=== PATIENT | male | born 1965 | race Caucasian/White ===

== ENCOUNTER 2019-07-15 09:06 | Day surgery (SDC) | payer OTHER ==
[~2019-07-15 09:06] MED LIST: Bupivacaine 0.5% 30 ML SDV ONE; Midazolam 1 MG/ML 2 ML SDV ONE; Propofol 200 MG/20 ML SDV ONE; fentaNYL 100 MCG/2 ML SDV ONE
[2019-07-15] MEDS: Nozin Nasal Sanitizer NASBOTH SCH ×2 (09:31→20:05)
[2019-07-15] MEDS ORDERED: Lactated Ringers 1,000 ML IV SCH (10:15)
[2019-07-15] MEDS ORDERED: ceFAZolin 2 GM in Sodium Chloride 0.9% 50 ML IV ONE (10:30)
[2019-07-15] MEDS ORDERED: Ondansetron 4 MG/2 ML SDV ONE (10:44)
[2019-07-15] MEDS ORDERED: Dexamethasone 4 MG/ML SDV ONE (10:44)
[2019-07-15] MEDS ORDERED: Rocuronium 50 MG/5 ML Vial ONE (10:44)
[2019-07-15] MEDS ORDERED: Succinylcholine 200 MG/10 ML MDV ONE (10:44)
[2019-07-15] MEDS ORDERED: Glycopyrrolate 0.2 MG/ML 5 ML MDV ONE (11:37)
[2019-07-15] MEDS ORDERED: Neostigmine Methylsulfate 1 MG/ML 5 ML Syringe ONE (11:37)
[2019-07-15] MEDS ORDERED: Lactated Ringers 1,000 ML ONE (12:26)
[2019-07-15] MEDS ORDERED: fentaNYL 100 MCG/2 ML SDV ONE (12:42)
[2019-07-15] MEDS ORDERED: Morphine 2 MG/ML Syringe IVPUSH PRN (12:43)
[2019-07-15] MEDS ORDERED: Acetaminophen/HYDROcodone 325-5 MG Tab PO PRN (12:43)
[2019-07-15] MEDS ORDERED: Ondansetron 4 MG/2 ML SDV IVPUSH PRN (12:43)
[2019-07-15] MEDS ORDERED: Albuterol 0.083% 2.5 MG/3 ML Neb Soln INH PRN (12:49)
[2019-07-15] MEDS ORDERED: INFLIXIMAB 100 MG IV SCH (13:00)
[2019-07-15] MEDS: Acetaminophen/oxyCODONE 325-5 MG Tab PO PRN ×2 (15:13→22:34)
[2019-07-15] MEDS: ALPRAZolam 0.25 MG Tab PO SCH ×2 (15:17→21:17)
[2019-07-15] MEDS: Sodium Chloride 0.9% 1,000 ML IV SCH ×2 (15:32→22:37)
[2019-07-15] MEDS: ceFAZolin 1 GM in Premix Bag 1 BAG IV SCH (17:41)
[2019-07-15] MEDS: Docusate Sodium 100 MG Cap PO SCH (20:06)
[2019-07-15] MEDS ORDERED: Simvastatin 20 MG Tab PO SCH (21:00)
[2019-07-16] MEDS: ceFAZolin 1 GM in Premix Bag 1 BAG IV SCH (01:02)
[2019-07-16] MEDS: Acetaminophen/oxyCODONE 325-5 MG Tab PO PRN ×2 (05:23→11:52)
[2019-07-16] MEDS ORDERED: Pantoprazole 40 MG Tab.CR PO SCH (07:30)
[2019-07-16] MEDS: Sodium Chloride 0.9% 1,000 ML IV SCH (07:55)
[2019-07-16] MEDS: Nozin Nasal Sanitizer NASBOTH SCH (08:44)
[2019-07-16] MEDS: ALPRAZolam 0.25 MG Tab PO SCH ×2 (08:44→13:33)
[2019-07-16] MEDS: Docusate Sodium 100 MG Cap PO SCH (08:45)
[2019-07-16] MEDS ORDERED: Fluticasone Propionate Nasal Spray 16 GM Bottle NASBOTH SCH (09:00)
[2019-07-16] MEDS ORDERED: Lisinopril 10 MG Tab PO SCH (09:00)
[2019-07-16] MEDS ORDERED: Loratadine 10 MG Tab PO SCH (09:00)
[2019-07-16] MEDS ORDERED: Aspirin 81 MG Tab.Chew PO SCH (09:00)
[2019-07-16] MEDS ORDERED: PARoxetine 20 MG Tab PO SCH (09:00)
[2019-07-16 11:40] VITALS: BP 115/73; PULSE 90
[2019-07-16] MEDS ORDERED: Warfarin 5 MG Tab PO SCH (13:00)
--- NOTE | 2019-07-17 11:37 | OR ---
DATE OF PROCEDURE: 07/15/2019 SURGEON: Wilver Lowery MD PREOPERATIVE DIAGNOSIS: Displaced left proximal humerus fracture, 2-part surgical neck. POSTOPERATIVE DIAGNOSIS: Displaced left proximal humerus fracture, 2-part surgical neck. PROCEDURE: Open reduction and internal fixation of left proximal humerus. ANESTHESIA: Interscalene block with general. INDICATIONS: Yaw is a 54-year-old [id number] gentleman, who sustained a fall resulting in fracture of his left shoulder. Initially seen at [facility] by AUGUSTINE Wilson, and referred for treatment. X-ray reveals a fracture transversely at the humeral neck with significant medial displacement of the shaft fragment. The patient now presents for open reduction and internal fixation. Risks, benefits, potential complications of the procedure were discussed with Yaw and his mother. DESCRIPTION OF PROCEDURE: After adequate anesthesia was obtained, the patient was placed in a modified beach-chair position. Left shoulder and arm were then prepped and draped in a sterile fashion. A longitudinal incision was made off the lateral edge of the acromion and carried distally through the skin and subcutaneous tissues. Hemostasis was obtained with electrocautery. Deltoid was split in line with its fibers down to the level of the axillary nerve. Axillary nerve was palpated and protected throughout the case. Blunt dissection carried out distal to the axillary nerve down to the humeral shaft. The fracture was somewhat impacted and initial attempts at reduction were unsuccessful. A bone hook was placed around the shaft medially, which improved reduction, however, complete reduction was not obtained. A Synthes proximal humeral plate was selected. This was positioned over the lateral aspect of the humerus. A single locking screw was placed in the proximal fragment of the humeral head and then a 3.5 cortical screw was utilized in the shaft fragment to aid in reduction compressing it against the plate. Position was confirmed using fluoroscopy. An additional shaft screw was then placed distal to this and again used in compressing the shaft fragment against the plate in aiding in reduction. FiberWire suture had been placed through the rotator cuff, which was completely intact and placed through the proximal suture holes in the plate and used for additional fixation. The suture was tied down and cut. Additional locking screw fixation was then obtained in the humeral head and position confirmed using fluoroscopy. Final cortical screws were placed in the distal hole on the plate. The longer screw which was originally used for reduction was removed and replaced with a locking screw. Final position was confirmed using image intensifier. Wound was then irrigated. Deltoid was then closed using 0 Vicryl in a running fashion. Skin was closed with 2-0 Vicryl and a running 3-0 Monocryl. Steri-Strips were applied. Sterile dressing was then placed. The patient tolerated the procedure well. There were no complications. He was taken from the operating room in stable condition. Wilver Lowery MD /[id number]
== END 2019-07-16 15:50 | disposition home health service (06) ==
LOC: JP.SDS 09:06 → JP.2SS 13:30 → JP.SDS 07-16 15:50
PROVIDERS: ATTEND Specialist
DX: S42.222A 2-part displaced fracture of surgical neck of left humerus, initial encounter for closed fracture (principal); I10 Essential (primary) hypertension; E78.5 Hyperlipidemia, unspecified; E66.9 Obesity, unspecified; K21.9 Gastro-esophageal reflux disease without esophagitis; F17.210 Nicotine dependence, cigarettes, uncomplicated; M19.90 Unspecified osteoarthritis, unspecified site; W19.XXXA Unspecified fall, initial encounter; Z79.82 Long term (current) use of aspirin; Z79.51 Long term (current) use of inhaled steroids; Z79.01 Long term (current) use of anticoagulants; Z79.899 Other long term (current) drug therapy; Z68.37 Body mass index [BMI] 37.0-37.9, adult
CPT/HCPCS: 76000; 97161-GP; A9270-GY; C1713; C1776; J0330; J0690; J1100; J2250; J2405; J2704; J2710; J3010; J3490; J7030; J7050; J7120; J7500

== ENCOUNTER 2019-07-28 16:05 | Emergency (ER) | payer OTHER ==
[2019-07-28 16:19] VITALS: BP 133/75; PULSE 94
--- NOTE | 2019-07-28 16:47 | EDM.PDOC ---
ED HPI GENERAL MEDICAL PROBLEM - General Chief Complaint: Upper Extremity Injury/Pain Stated Complaint: REINJURED LEFT ARM POST SURGERY Time Seen by Provider: 07/28/19 16:46 Source of Information: Reports: Patient History Limitations: Reports: No Limitations - History of Present Illness INITIAL COMMENTS - FREE TEXT/NARRATIVE: pt arrived stating that he fell out of bed this am . He had surgery on his humerus about 2 weeks ago. He is not having severe pain at this time. Onset: Today, Sudden Duration: Hour(s): Location: Reports: Upper Extremity, Left Associated Symptoms: Reports: Other (pt has pain in the left humerus but not markedly increased. ) Left Shoulder Pain Score (Numeric/FACES): 5 - Related Data Allergies Allergy/AdvReac Type Severity Reaction Status Date / Time No Known Allergies Allergy Verified 07/15/19 10:04 Home Meds: Home Meds Aspirin [Ashkan Chewable Aspirin] 81 mg PO DAILY 06/17/13 [History] Ca Carbonate/Vitamin D3/Vit K [Calcium + D Soft Chewable Tab] 1 each PO TID [History] InFLIXimab [Remicade] 100 mg IV Q30D 06/17/13 [History] Lisinopril 10 mg PO DAILY 06/17/13 [History] Multivitamin [Multi-Vitamin Daily] 1 tab PO DAILY 06/17/13 [History] Simvastatin 20 mg PO BEDTIME 06/17/13 [History] azaTHIOprine [Azathioprine] 5 tab PO DAILY 06/17/13 [History] ALPRAZolam [Xanax] 0.25 mg PO TID 07/09/19 [History] Albuterol Sulfate 2.5 mg IH Q6HR PRN 07/09/19 [History] Fluticasone Propionate [Flonase] 50 mcg NS DAILY 07/09/19 [History] Loratadine 10 mg PO DAILY 07/09/19 [History] Omeprazole 40 mg PO ACBREAKFAST 07/09/19 [History] PARoxetine [Paxil] 40 mg PO DAILY 07/09/19 [History] Warfarin [Coumadin] 5 mg PO DAILY 07/09/19 [History] oxyCODONE HCl/Acetaminophen [Percocet 5-325 mg Tablet] 1 each PO Q6HR PRN #28 tablet 07/16/19 [Rx] Past Medical History Gastrointestinal History: Reports: Other (See Below) Other Gastrointestinal History: chrones Musculoskeletal History: Reports: Fracture Other Musculoskeletal History: L prox humerus Fx Endocrine/Metabolic History: Reports: Obesity/BMI 30+ - Past Surgical History GI Surgical History: Reports: Other (See Below) Other GI Surgeries/Procedures: large bowel removed Musculoskeletal Surgical History: Reports: Arthroscopic Knee, Other (See Below) Other Musculoskeletal Surgeries/Procedures:: ORIF l shoulder Jun 2019 Social & Family History - Family History Family Medical History: Noncontributory - Tobacco Use Smoking Status *Q: Current Every Day Smoker Years of Tobacco use: 30 Packs/Tins Daily: 0.5 Used Tobacco, but Quit: No Second Hand Smoke Exposure: No - Caffeine Use Caffeine Use: Reports: Coffee, Soda, Tea - Recreational Drug Use Recreational Drug Use: No Review of Systems - Review of Systems Review Of Systems: See Below Constitutional: Reports: No Symptoms Eyes: Reports: No Symptoms Ears: Reports: No Symptoms Nose: Reports: No Symptoms Mouth/Throat: Reports: No Symptoms Respiratory: Reports: No Symptoms Cardiovascular: Reports: No Symptoms GI/Abdominal: Reports: No Symptoms Musculoskeletal: Reports: Other (pt fell out of bed and landed on the left arm. He had surgery on the humerus 2 weeks ago. ) ED EXAM, GENERAL - Physical Exam Exam: See Below Free Text/Narrative:: Pt arrived after falling out of bed and landing on the left shoulder. He had surgery on the humerus 2 weeks ago. Exam Limited By: No Limitations General Appearance: Alert, Mild Distress Ears: Normal TMs Nose: Normal Inspection Throat/Mouth: Normal Inspection Head: Atraumatic Neck: Normal Inspection Extremities: Other (left shoulder-- recent surgery tender with movement. He had surgery on the humerus 2 weeks ago. He fell and landed on the shoulder. ) Neurological: Alert, Oriented Course - Vital Signs Last Recorded V/S: Last Vital Signs Temp 35.9 C 07/28/19 16:29 Pulse 94 07/28/19 16:29 Resp 18 07/28/19 16:29 BP 133/75 07/28/19 16:29 Pulse Ox 97 07/28/19 16:29 - Re-Assessments/Exams Free Text/Narrative Re-Assessment/Exam: 07/28/19 17:24 xrays were obtained which showed excellent alignment. Departure - Departure Time of Disposition: 17:25 Disposition: Home, Self-Care 01 Condition: Fair Clinical Impression: Contusion of arm, left - Discharge Information Instructions: Contusion, [id number] Referrals: Justin Grullon MD [Primary Care Provider] - Forms: ED Department Discharge Care Plan Goals: cont with same care. keep appt for breonna with Dr wild.
--- NOTE | 2019-07-28 17:20 | CRLCR ---
Indication: Pain after fall Technique: Three views of the left shoulder were obtained. Comparison: July 09, 2019 Findings: A plate and screws transfix the proximal humeral fracture. The humerus is present within the glenoid. No definite new acute fracture is identified. Impression: Post operative change. Dictated by Alexandra Hidalgo MD @ Jul 28 2019 5:16PM Signed by Dr. Alexandra Hidalgo @ Jul 28 2019 5:20PM
--- NOTE | 2019-07-28 17:55 | CRLCR ---
INDICATION: Pain after fall into the arm. Recent shoulder surgery. COMPARISON: Shoulder exam from today and from 07/09/2019 FINDINGS: AP and lateral views of the left humerus were obtained using portable technique at 1701 hours for a total of two views. Again seen are changes of satisfactory ORIF of a comminuted, transverse, nondisplaced fracture of the surgical neck of the humerus and greater tuberosity. The lateral metallic plate and multiple anchoring screws are intact. There is no sign of additional fracture or dislocation. The visualized elbow is normal in appearance. The soft tissue planes are preserved. There is no opaque foreign body. IMPRESSION: Satisfactory appearance status post ORIF of a comminuted fracture of the surgical neck of the humerus and lateral malleolus. No sign of additional humeral fracture. Dictated by Kiel Ching MD @ Jul 28 2019 5:52PM Signed by Dr. Kiel Ching @ Jul 28 2019 5:55PM
== END 2019-07-28 17:33 | disposition home or self-care (01) ==
LOC: JP.ED 16:05
DX: S40.022A Contusion of left upper arm, initial encounter (principal); F17.210 Nicotine dependence, cigarettes, uncomplicated; E66.9 Obesity, unspecified; Z68.38 Body mass index [BMI] 38.0-38.9, adult; Z98.890 Other specified postprocedural states; Z96.612 Presence of left artificial shoulder joint; Z79.82 Long term (current) use of aspirin; Z79.02 Long term (current) use of antithrombotics/antiplatelets; W06.XXXA Fall from bed, initial encounter
CPT/HCPCS: 73030-LT; 73060-LT; 99283-25

== ENCOUNTER 2020-10-03 17:25 | Inpatient (IN) | payer MEDICARE, MEDICAID ==
[2020-10-03] MEDS ORDERED: Ketorolac 30 MG/ML SDV IM ONE (18:51)
--- NOTE | 2020-10-03 20:18 | CRLCT ---
INDICATION: Syncope TECHNIQUE: CT head without contrast. COMPARISON: None available FINDINGS: There is mild cortical volume loss. The ventricles are within normal limits for the patient`s age. There is no significant mass effect or midline shift. There is an ovoid, mildly lobulated fat attenuation structure along the superior aspect of the corpus callosum along the midline, with a lobulated ovoid component extending leftward along the superior aspect of the left lateral ventricle, which could represent a lipoma or a dermoid cyst. There is no loss of bruce-white differentiation. There is no evidence of an acute intracranial hemorrhage. No acute calvarial fracture is seen. The visualized paranasal sinuses and mastoid air cells are clear. The visualized orbits are within normal limits. IMPRESSION: No evidence of an acute intracranial hemorrhage, mass effect or loss of bruce-white differentiation. 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 Dictated by Rustam Chance MD @ 10/03/2020 8:15:57 PM Please note that all CT scans at this facility use dose modulation, iterative reconstruction, and/or weight-based dosing when appropriate to reduce radiation dose to as low as reasonably achievable. Dictated by: Rustam Chance MD @ 10/03/2020 20:17:13 (Electronically Signed)
--- NOTE | 2020-10-03 20:47 | CRLCR ---
INDICATION: Trauma. Patient fell. COMPARISON: none TECHNIQUE: Three-view right shoulder FINDINGS: There is a comminuted displaced fracture the right humeral head. The AC joint appears intact. The clavicle and upper right ribs appear intact. IMPRESSION: Comminuted displaced fracture noted within the right humeral head. Dictated by Neto Valdez MD @ 10/03/2020 8:45:39 PM Dictated by: Neto Valdez MD @ 10/03/2020 20:45:56 (Electronically Signed)
[2020-10-03] MEDS ORDERED: HYDROmorphone 0.5 MG/0.5 ML Syringe IVPUSH ONE (21:46)
--- NOTE | 2020-10-03 22:14 | EDM.PDOC ---
ED HPI GENERAL MEDICAL PROBLEM - General Chief Complaint: Upper Extremity Injury/Pain Stated Complaint: FELL RT SHOULDER PAIN VIA [place] Time Seen by Provider: 10/03/20 18:47 Source of Information: Reports: Patient, Family History Limitations: Reports: No Limitations - History of Present Illness INITIAL COMMENTS - FREE TEXT/NARRATIVE: Nadeem is a 55-year-old male presenting to the ED for evaluation of right shoulder pain after a fall on the ice today. Patient reports that he had 2 falls the first outside of a store where he "slipped on the sidewalk". On that fall he did not sustain any injuries. He then was coming out of [employer] and again "slipped on the ice" falling on his right shoulder. He was assisted back up by another individual but is experiencing significant pain in the proximal shoulder with decreased range of motion. Patient does have a history of a fracture to the left shoulder (proximal humerus) requiring pinning and stabilization. The patient denies any head injury or loss of consciousness. He blames the fall on wearing slippery soled shoes. He denies any neck or back pain. Not experienced any nausea or vomiting, change in vision or hearing, numbness or weakness in the arms or legs. He has not had any loss of bowel or bladder control, or saddle anesthesia. Right Shoulder Pain Score (Numeric/FACES): 5 - Related Data Allergies Allergy/AdvReac Type Severity Reaction Status Date / Time No Known Allergies Allergy Verified 10/03/20 18:02 Home Meds: Home Meds Aspirin [Ashkan Chewable Aspirin] 81 mg PO DAILY 06/17/13 [History] Calcium Carb/Vitamin D3/Vit K1 [Calcium + D Soft Chewable Tab] 1 each PO TID 06/17/13 [History] InFLIXimab [Remicade] 100 mg IV Q30D 06/17/13 [History] Lisinopril 10 mg PO DAILY 06/17/13 [History] Multivitamin [Multi-Vitamin Daily] 1 tab PO DAILY 06/17/13 [History] Simvastatin 20 mg PO BEDTIME 06/17/13 [History] azaTHIOprine [Azathioprine] 5 tab PO DAILY 06/17/13 [History] ALPRAZolam [Xanax] 0.25 mg PO TID 07/09/19 [History] Albuterol Sulfate 2.5 mg IH Q6HR PRN 07/09/19 [History] Fluticasone Propionate [Flonase] 50 mcg NS DAILY 07/09/19 [History] Loratadine 10 mg PO DAILY 07/09/19 [History] Omeprazole 40 mg PO ACBREAKFAST 07/09/19 [History] PARoxetine [Paxil] 40 mg PO DAILY 07/09/19 [History] Warfarin [Coumadin] 5 mg PO DAILY 07/09/19 [History] Acetaminophen [Tylenol] 1 - 2 tab PO Q4HR 09/17/19 [History] Past Medical History HEENT History: Reports: Impaired Vision Cardiovascular History: Reports: Blood Clots/VTE/DVT, High Cholesterol, Hypertension Respiratory History: Reports: None Gastrointestinal History: Reports: Other (See Below) Other Gastrointestinal History: chrones Genitourinary History: Reports: None Musculoskeletal History: Reports: Fracture Other Musculoskeletal History: L prox humerus Fx. s/p L proximal humeras fixation 07/15/19. Fell out of bed 07/21/19 landing on his L upper arm, states having more pain since then Neurological History: Reports: None Psychiatric History: Reports: None, Anxiety, Depression, Developmental Delay Endocrine/Metabolic History: Reports: Obesity/BMI 30+ Hematologic History: Reports: None Immunologic History: Reports: None Oncologic (Cancer) History: Reports: None Dermatologic History: Reports: None - Infectious Disease History Infectious Disease History: Reports: Chicken Pox - Past Surgical History Head Surgeries/Procedures: Reports: None GI Surgical History: Reports: Colon, Other (See Below) Other GI Surgeries/Procedures: large bowel removed Musculoskeletal Surgical History: Reports: Arthroscopic Knee, Other (See Below) Other Musculoskeletal Surgeries/Procedures:: ORIF l shoulder Jun 2019 Social & Family History - Family History Family Medical History: No Pertinent Family History - Tobacco Use Tobacco Use Status *Q: Current Every Day Tobacco User Years of Tobacco use: 32 Packs/Tins Daily: 1 - Caffeine Use Caffeine Use: Reports: Coffee, Soda - Recreational Drug Use Recreational Drug Use: No Review of Systems - Review of Systems Review Of Systems: See Below Constitutional: Reports: No Symptoms Eyes: Reports: No Symptoms Ears: Reports: No Symptoms Nose: Reports: No Symptoms Mouth/Throat: Reports: No Symptoms Respiratory: Reports: No Symptoms Cardiovascular: Reports: No Symptoms GI/Abdominal: Reports: No Symptoms Genitourinary: Reports: No Symptoms Musculoskeletal: Reports: Shoulder Pain (Right shoulder pain with decreased range of motion.) Skin: Reports: No Symptoms Neurological: Reports: Other (Recurrent falls today.) Psychiatric: Reports: No Symptoms ED EXAM, GENERAL - Physical Exam Exam: See Below Exam Limited By: No Limitations General Appearance: Alert, Mild Distress Eye Exam: Bilateral Eye: EOMI, PERRL Throat/Mouth: Normal Inspection, Normal Lips, Normal Teeth, Normal Oropharynx, Normal Voice Head: Atraumatic, Normocephalic Neck: Normal Inspection, Supple, Non-Tender, Full Range of Motion Respiratory/Chest: No Respiratory Distress, Lungs Clear, Normal Breath Sounds, Chest Non-Tender Cardiovascular: Normal Peripheral Pulses, Regular Rate, Rhythm, No Edema, No Murmur Peripheral Pulses: 2+: Radial (L), Radial (R), Posterior Tibial (L), Posterior Tibial (R) GI/Abdominal: Normal Bowel Sounds, Soft, Non-Tender, No Distention Back Exam: Normal Inspection, Full Range of Motion Extremities: Normal Capillary Refill, Joint Swelling (Right shoulder tenderness and mild swelling. No ecchymosis.), Arm Pain, Limited Range of Motion (Unable to AB duct, flex, or extend the right shoulder. Increased pain with external rotation.) Neurological: Alert, Oriented, CN II-XII Intact, Normal Cognition, No Motor/Sensory Deficits Psychiatric: Normal Affect, Normal Mood Skin Exam: Warm, Dry, Intact, Ecchymosis (Ecchymosis noted on the inside of the left arm and forearm.) Lymphatic: No Adenopathy #1 Interpretation EKG Date: 10/03/20 Time: 19:39 Rhythm: NSR Rate (Beats/Min): 81 [place]: Normal P-Wave: Present QRS: Normal ST-T: Normal QT: Normal Comparison: No Change Course - Vital Signs Last Recorded V/S: Last Vital Signs Temp 35.4 C L 10/03/20 21:00 Pulse 78 10/03/20 21:25 Resp 16 10/03/20 21:25 BP 122/80 10/03/20 21:25 Pulse Ox 95 10/03/20 21:25 - Orders/Labs/Meds Orders: Active Orders 24 hr Category Date Time Status EKG Documentation Completion [RC] ASDIRECTED Care 10/03/20 19:19 Active EKG 12 Lead [EK] Routine Ther 10/03/20 19:18 Ordered Labs: Laboratory Tests 10/03/20 10/03/20 10/03/20 Range/Units 19:18 19:18 19:18 WBC 11.1 H (4.5-11.0) K/uL RBC 4.65 (4.30-5.90) M/uL Hgb 15.6 H (12.0-15.0) g/dL Hct 48.1 (40.0-54.0) % MCV 103 H (80-98) fL MCH 34 H (27-31) pg MCHC 32 (32-36) % Plt Count 209 (150-400) K/uL Neut % (Auto) 89 H (36-66) % Lymph % (Auto) 5 L (24-44) % [place] % (Auto) 6 (2-6) % Eos % (Auto) 0 L (2-4) % Baso % (Auto) 0 (0-1) % Sodium 138 L (140-148) mmol/L Potassium 4.7 (3.6-5.2) mmol/L Chloride 102 (100-108) mmol/L Carbon Dioxide 24 (21-32) mmol/L Anion Gap 16.7 H (5.0-14.0) mmol/L BUN 23 H (7-18) mg/dL Creatinine 1.4 H (0.8-1.3) mg/dL Est Cr Clr Drug Dosing 72.33 mL/min Estimated GFR (MDRD) 52 L (>60) Glucose 142 H (74-106) mg/dL Calcium 8.5 (8.5-10.1) mg/dL Total Bilirubin 0.6 (0.2-1.0) mg/dL AST 22 (15-37) U/L ALT 35 (12-78) U/L Alkaline Phosphatase 67 (46-116) U/L Troponin I < 0.017 (0.000-0.056) ng/mL Total Protein 7.6 (6.4-8.2) g/dL Albumin 3.2 L (3.4-5.0) g/dL Globulin 4.4 H (2.3-3.5) g/dL Albumin/Globulin Ratio 0.7 L (1.2-2.2) Ethyl Alcohol < 3 mg/dL Meds: Medications Discontinued Medications Generic Name Dose Route Start Last Admin Trade Name Freq PRN Reason Stop Dose Admin Hydromorphone HCl 0.5 mg 10/03/20 21:46 10/03/20 22:07 Dilaudid IVPUSH 10/03/20 21:47 0.5 mg ONETIME ONE Administration Ketorolac Tromethamine 30 mg 10/03/20 18:51 10/03/20 19:48 Toradol IM 10/03/20 18:52 30 mg ONETIME ONE Administration - Re-Assessments/Exams Free Text/Narrative Re-Assessment/Exam: 10/03/20 19:15 we were called to x-ray as the patient had collapsed while standing for his shoulder x-ray. Patient apparently had a syncopal episode and was found on the floor lying supine. He denied any new pain but was unable to get off the floor without significant help. The patient reports that he started to feel a little dizzy before passing out. The x-ray tech witnessed the fall and try to assist the patient to the ground, however, he just waited too much for her to assist him. It took the assistance of 4 nurses to get him off the floor onto a cot. Because of this, we will get an EKG, additional labs, and a CT of the brain to rule out causes of syncope. In reviewing the patient's chart it appears that he had a syncopal episode while trimming his toenails back in 2013. 10/03/20 20:[address] of the brain results showing mild cortical volume loss with ventriculus in normal limits and no significant mass-effect or midline shift. There is no evidence for acute intracranial hemorrhage, mass-e ffect or loss of bruce-white differentiation. 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 Lowery will see the patient in the hospital. Because of the limited mobility of the patient and the uncertainty of why he is having syncopal episodes, I talked with Dr. Moctezuma about admitting the patient to the hospital for further care. Departure - Departure Time of Disposition: 22:22 Disposition: Admitted As Inpatient 66 Condition: Good Clinical Impression: Recurrent falls while walking, Syncope and collapse Closed fracture of proximal end of right humerus Qualifiers: Encounter type: initial encounter Fracture morphology: other fracture Fracture alignment: displaced Qualified Code(s): S42.291A - Other displaced fracture of upper end of right humerus, initial encounter for closed fracture - Discharge Information *PRESCRIPTION DRUG MONITORING PROGRAM REVIEWED*: Not Applicable *COPY OF PRESCRIPTION DRUG MONITORING REPORT IN PATIENT SAIRA: Not Applicable Referrals: Justin Grullon MD [Primary Care Provider] - Forms: ED Department Discharge Care Plan Goals: Plan is to omit the patient to the hospital for further evaluation and care with the anticipation that the patient will likely need orthopedic surgical intervention to stabilize the right shoulder. Sepsis Event Note (ED) - Evaluation Sepsis Screening Result: No Definite Risk - Focused Exam Vital Signs: Vital Signs Temp Pulse Resp BP Pulse Ox 10/03/20 21:25 78 16 122/80 95 10/03/20 21:00 35.4 C L 84 16 115/75 95 10/03/20 18:00 35.4 C L 79 16 102/71 97 10/03/20 17:28 35.4 C L 79 16 102/71 97 - My Orders Last 24 Hours: My Active Orders 10/03/20 19:18 EKG 12 Lead [EK] Routine 10/03/20 19:19 EKG Documentation Completion [RC] ASDIRECTED - Assessment/Plan Last 24 Hours: My Active Orders 10/03/20 19:18 EKG 12 Lead [EK] Routine 10/03/20 19:19 EKG Documentation Completion [RC] ASDIRECTED
--- NOTE | 2020-10-03 23:06 | PCM.HP.2 ---
H&P History of Present Illness - General Date of Service: 10/03/20 Admit Problem/Dx: Admission Diagnosis/Problem Admission Diagnosis/Problem Fracture of humerus, proximal, right, closed Source of Information: Patient, Family, Provider History Limitations: Reports: No Limitations - History of Present Illness Initial Comments - Free Text/Narative: CC: It hurts like hell HPI: Yaw presents to the emergency room today with right shoulder pain. He reports 2 different times today that he has fallen down. He thinks the first time he slipped on the ice and fell down. The second time he collapsed coming out of [facility]. He fell down and landed on his right shoulder. He experienced immediate sharp and severe pain in the right shoulder after the fall. Pain is worse with any sort of movement. Pain medications provided here have improved his pain some. He does report that he felt dizzy prior to the second fall. He also had a syncopal episode after standing up in the x-ray department. He reported feeling dizzy and blacking out at that time as well. He had an episode of syncope about 6 years ago that sounded like it was a vasovagal episode. He has been feeling well recently with no fevers, cough or shortness of breath. No reports of abdominal pain or nausea. No change in bowel or bladder habits. He has been eating and drinking well. He has not had any sick contacts. Work-up in the emergency room initially revealed some hypotension which has improved. His blood pressure is now normal. Labs show mild dehydration. Head CT was unremarkable. X-ray of the right shoulder shows a comminuted proximal right humerus fracture. He will be admitted for surgical management. Right Shoulder Pain Score (Numeric/FACES): 5 - Related Data Allergies/Adverse Reactions: Allergies Allergy/AdvReac Type Severity Reaction Status Date / Time No Known Allergies Allergy Verified 10/03/20 18:02 Home Medications: Home Meds Aspirin [Ashkan Chewable Aspirin] 81 mg PO DAILY 06/17/13 [History] Calcium Carb/Vitamin D3/Vit K1 [Calcium + D Soft Chewable Tab] 1 each PO TID 06/17/13 [History] InFLIXimab [Remicade] 100 mg IV Q30D 06/17/13 [History] Lisinopril 10 mg PO DAILY 06/17/13 [History] Multivitamin [Multi-Vitamin Daily] 1 tab PO DAILY 06/17/13 [History] Simvastatin 20 mg PO BEDTIME 06/17/13 [History] azaTHIOprine [Azathioprine] 5 tab PO DAILY 06/17/13 [History] ALPRAZolam [Xanax] 0.25 mg PO TID 07/09/19 [History] Albuterol Sulfate 2.5 mg IH Q6HR PRN 07/09/19 [History] Fluticasone Propionate [Flonase] 50 mcg NS DAILY 07/09/19 [History] Loratadine 10 mg PO DAILY 07/09/19 [History] Omeprazole 40 mg PO ACBREAKFAST 07/09/19 [History] PARoxetine [Paxil] 40 mg PO DAILY 07/09/19 [History] Warfarin [Coumadin] 5 mg PO DAILY 07/09/19 [History] Acetaminophen [Tylenol] 1 - 2 tab PO Q4HR 09/17/19 [History] Past Medical History HEENT History: Reports: Impaired Vision Cardiovascular History: Reports: Blood Clots/VTE/DVT, High Cholesterol, Hypertension Respiratory History: Reports: None Gastrointestinal History: Reports: Other (See Below) Other Gastrointestinal History: chrones Genitourinary History: Reports: None Musculoskeletal History: Reports: Fracture Other Musculoskeletal History: L prox humerus Fx. s/p L proximal humeras fixa tion 07/15/19. Fell out of bed 07/21/19 landing on his L upper arm, states having more pain since then Neurological History: Reports: None Psychiatric History: Reports: None, Anxiety, Depression, Developmental Delay Endocrine/Metabolic History: Reports: Obesity/BMI 30+ Hematologic History: Reports: None Immunologic History: Reports: None Oncologic (Cancer) History: Reports: None Dermatologic History: Reports: None - Infectious Disease History Infectious Disease History: Reports: Chicken Pox - Past Surgical History Head Surgeries/Procedures: Reports: None GI Surgical History: Reports: Colon, Other (See Below) Other GI Surgeries/Procedures: large bowel removed Musculoskeletal Surgical History: Reports: Arthroscopic Knee, Other (See Below) Other Musculoskeletal Surgeries/Procedures:: ORIF l shoulder Jun 2019 Social & Family History - Family History Family Medical History: No Pertinent Family History - Tobacco Use Tobacco Use Status *Q: Current Every Day Tobacco User Years of Tobacco use: 32 Packs/Tins Daily: 1 - Caffeine Use Caffeine Use: Reports: Coffee, Soda - Alcohol Use Alcohol Use History: No - Recreational Drug Use Recreational Drug Use: No H&P Review of Systems - Review of Systems: Review Of Systems: See Below Free Text/Narrative: A complete 12 point review of systems was obtained. Pertinent positives and negatives are noted in the history of present illness. All other systems were reviewed and were negative except as noted. Exam - Exam Exam: See Below - Vital Signs Vital Signs: Last Vital Signs Temp 35.4 C L 10/03/20 21:00 Pulse 78 10/03/20 21:25 Resp 16 10/03/20 21:25 BP 122/80 10/03/20 21:25 Pulse Ox 95 10/03/20 21:25 Weight: 145.15 kg - Exam Quality Assessment: No: Supplemental Oxygen General: Alert, Oriented, Cooperative. No: Mild Distress HEENT: Conjunctiva Clear, Mucosa Moist & [place]. No: Scleral Icterus Neck: Trachea Midline. No: Lymphadenopathy Lungs: Clear to Auscultation, Normal Respiratory Effort Cardiovascular: Regular Rate, Regular Rhythm GI/Abdominal Exam: Normal Bowel Sounds, Soft, Non-Tender, No Distention Extremities: No Pedal Edema, Joint Swelling (right shoulder ), Other (right shoulder quite swollen and very tender to touch ). No: Increased Warmth Skin: Warm, Dry Neuro Extensive - Mental Status: Alert, Oriented x3, Nl Response to Commands Neuro Extensive - Motor, Sensory, Reflexes: No: Dysarthria, Abnormal Motor, Tremor Psychiatric: Alert, Normal Affect - Patient Data Lab Results Last 24 hrs: Laboratory Results - last 24 hr 10/03/20 10/03/20 10/03/20 Range/Units 19:18 19:18 19:18 WBC 11.1 H (4.5-11.0) K/uL RBC 4.65 (4.30-5.90) M/uL Hgb 15.6 H (12.0-15.0) g/dL Hct 48.1 (40.0-54.0) % MCV 103 H (80-98) fL MCH 34 H (27-31) pg MCHC 32 (32-36) % Plt Count 209 (150-400) K/uL Neut % (Auto) 89 H (36-66) % Lymph % (Auto) 5 L (24-44) % Dane % (Auto) 6 (2-6) % Eos % (Auto) 0 L (2-4) % Baso % (Auto) 0 (0-1) % PT (9.5-12.0) sec INR (0.80-1.20) Sodium 138 L (140-148) mmol/L Potassium 4.7 (3.6-5.2) mmol/L Chloride 102 (100-108) mmol/L Carbon Dioxide 24 (21-32) mmol/L Anion Gap 16.7 H (5.0-14.0) mmol/L BUN 23 H (7-18) mg/dL Creatinine 1.4 H (0.8-1.3) mg/dL Est Cr Clr Drug Dosing 72.33 mL/min Estimated GFR (MDRD) 52 L (>60) Glucose 142 H (74-106) mg/dL Calcium 8.5 (8.5-10.1) mg/dL Total Bilirubin 0.6 (0.2-1.0) mg/dL AST 22 (15-37) U/L ALT 35 (12-78) U/L Alkaline Phosphatase 67 (46-116) U/L Troponin I < 0.017 (0.000-0.056) ng/mL Total Protein 7.6 (6.4-8.2) g/dL Albumin 3.2 L (3.4-5.0) g/dL Globulin 4.4 H (2.3-3.5) g/dL Albumin/Globulin Ratio 0.7 L (1.2-2.2) Ethyl Alcohol < 3 mg/dL 10/03/20 Range/Units 22:27 WBC (4.5-11.0) K/uL RBC (4.30-5.90) M/uL Hgb (12.0-15.0) g/dL Hct (40.0-54.0) % MCV (80-98) fL MCH (27-31) pg MCHC (32-36) % Plt Count (150-400) K/uL Neut % (Auto) (36-66) % Lymph % (Auto) (24-44) % Dane % (Auto) (2-6) % Eos % (Auto) (2-4) % Baso % (Auto) (0-1) % PT 17.5 H (9.5-12.0) sec INR 1.62 H D (0.80-1.20) Sodium (140-148) mmol/L Potassium (3.6-5.2) mmol/L Chloride (100-108) mmol/L Carbon Dioxide (21-32) mmol/L Anion Gap (5.0-14.0) mmol/L BUN (7-18) mg/dL Creatinine (0.8-1.3) mg/dL Est Cr Clr Drug Dosing mL/min Estimated GFR (MDRD) (>60) Glucose (74-106) mg/dL Calcium (8.5-10.1) mg/dL Total Bilirubin (0.2-1.0) mg/dL AST (15-37) U/L ALT (12-78) U/L Alkaline Phosphatase (46-116) U/L Troponin I (0.000-0.056) ng/mL Total Protein (6.4-8.2) g/dL Albumin (3.4-5.0) g/dL Globulin (2.3-3.5) g/dL Albumin/Globulin Ratio (1.2-2.2) Ethyl Alcohol mg/dL Result Diagrams: 10/03/20 19:18 10/03/20 19:18 Imaging Impressions Last 24 hrs: All images below were personally reviewed Right shoulder x-ray-there is evidence for a comminuted fracture of the proximal right humerus Head CT-no acute intracranial findings and in particular no mass, hemorrhage or stroke. #1 Interpretation EKG Date: 10/03/20 Rhythm: NSR Rate (Beats/Min): 81 [place]: Normal P-Wave: Present QRS: Normal ST-T: Normal QT: Normal Comparison: No Change Sepsis Event Note - Evaluation Sepsis Screening Result: No Definite Risk - Focused Exam Vital Signs: Vital Signs Temp Pulse Resp BP Pulse Ox 10/03/20 21:25 78 16 122/80 95 10/03/20 21:00 35.4 C L 84 16 115/75 95 10/03/20 18:00 35.4 C L 79 16 102/71 97 10/03/20 17:28 35.4 C L 79 16 102/71 97 *Q Meaningful Use (ADM) - VTE *Q VTE Pharmacological Contraindications *Q: Patient Scheduled Surgery - Problem List (1) Closed fracture of proximal end of right humerus SNOMED Code(s): 19101830 ICD Code: S42.201A - UNSP FRACTURE OF UPPER END OF RIGHT HUMERUS, INIT Status: Acute Current Visit: Yes Qualifiers: Encounter type: initial encounter Fracture morphology: other fracture Fracture alignment: displaced Qualified Code(s): S42.291A - Other displaced fracture of upper end of right humerus, initial encounter for closed fracture (2) Syncope and collapse SNOMED Code(s): 913518477 ICD Code: R55 - SYNCOPE AND COLLAPSE Status: Acute Current Visit: Yes (3) Hx of deep venous thrombosis SNOMED Code(s): 654823720 ICD Code: Z86.718 - PERSONAL HISTORY OF OTHER VENOUS THROMBOSIS AND EMBOLISM Status: Chronic Current Visit: No (4) Crohn's disease SNOMED Code(s): 15203961 ICD Code: K50.90 - CROHN'S DISEASE, UNSPECIFIED, WITHOUT COMPLICATIONS Status: Chronic Current Visit: No Problem Details: Medications associated suppress the immune system. (5) HTN, Benign hypertension SNOMED Code(s): 78473143 ICD Code: I10 - ESSENTIAL (PRIMARY) HYPERTENSION Status: Chronic Current Visit: No Problem List Initiated/Reviewed/Updated: Yes Orders Last 24hrs: Active Orders 24 hr Category Date Time Status Patient Status Manage Transfer [TRANSFER] Routine ADT 10/03/20 22:59 Ordered EKG Documentation Completion [RC] ASDIRECTED Care 10/03/20 19:19 Active Resuscitation Status Routine Resus Stat 10/03/20 23:01 Ordered EKG 12 Lead [EK] Routine Ther 10/03/20 19:18 Ordered Assessment/Plan Comment:: ASSESSMENT AND PLAN - Comminuted proximal right humerus fracture-secondary to fall. There appears to be a developing hematoma in the area as well with significant swelling and some warmth. He is on warfarin. Surgical intervention will likely be indicated. Assuming his blood pressures remain stable after some hydration and his INR is reversed slightly I think he will be in optimal achievable medical condition for the surgery. He has a good functional status. -1 mg of IV vitamin K now -Pain control -Surgical consultation with Dr. Lowery in the morning -Nothing by mouth after midnight -physical therapy when indicated Syncope and collapse-patient was initially hypotensive in the emergency room but blood pressures have improved some. EKG unremarkable and troponin normal. He did have some preceding dizziness which would fit with hypotension. He is on an HILL inhibitor which could be contributing. He has had some dizzy spells and falls in the past couple of weeks which sound orthostatic as well. He appears to be mildly dehydrated based on laboratory studies. -Discontinue lisinopril -Cardiac monitoring -IV fluids overnight -Labs in the morning History of Crohn's disease-stable. -Continue azathioprine History of DVT-chronically anticoagulated but his INR is subtherapeutic today. -1 mg of IV vitamin K now -Repeat INR in the morning Maintenance issues - - DVT prophylaxis -mechanical - GI prophylaxis -PPI - Nutrition -n.p.o. after midnight - Chacko catheter -not indicated CODE STATUS -full code Admission justification -this patient will be admitted for inpatient services and is medically appropriate meeting medical necessity for inpatient admission as outlined in my documentation. I reasonably expect the patient will require inpatient services that span a period time over 2 midnights. I reasonably expect this patient to be discharged or transferred within 96 hours [facility]. Disposition - anticipate discharge home after the hospital stay Primary care physician -Dr. Mitchel Moctezuma M.D. - Mortality Measure Prognosis:: Good
[2020-10-03] MEDS ORDERED: Magnesium Hydroxide 400 MG/5 ML Susp 30 ML Cup PO PRN (23:40)
[2020-10-03] MEDS ORDERED: Ondansetron 4 MG/2 ML SDV IV PRN (23:40)
[2020-10-03] MEDS ORDERED: Phytonadione 1 MG in Sodium Chloride 0.9% 50 ML IV ONE (23:40)
[2020-10-03] MEDS ORDERED: Ondansetron 4 MG Tab.DIS PO PRN (23:40)
[2020-10-03] MEDS ORDERED: Albuterol 0.083% 2.5 MG/3 ML Neb Soln NEB PRN (23:40)
[2020-10-03] MEDS ORDERED: LORazepam 2 MG/ML SDV IVPUSH PRN (23:40)
[2020-10-03] MEDS ORDERED: HYDROmorphone 1 MG/ML Syringe IVPUSH PRN (23:40)
[2020-10-04] MEDS: Sodium Chloride 0.9% 1,000 ML IV SCH ×3 (00:21→17:26)
[2020-10-04] MEDS: oxyCODONE 5 MG Tab PO PRN ×5 (00:52→21:06)
[2020-10-04] MEDS: Nicotine 14 MG/24 Hr Patch TRDERM SCH ×2 (00:53→09:06)
[2020-10-04] MEDS: Pantoprazole 40 MG Tab.CR PO SCH ×2 (07:28→13:06)
[2020-10-04] MEDS: Fluticasone Propionate Nasal Spray 16 GM Bottle NASBOTH SCH ×2 (09:06→09:11)
[2020-10-04] MEDS: ALPRAZolam 0.25 MG Tab PO SCH ×3 (09:11→21:07)
[2020-10-04] MEDS: Aspirin 81 MG Tab.Chew PO SCH (12:54)
[2020-10-04] MEDS: Loratadine 10 MG Tab PO SCH (13:04)
[2020-10-04] MEDS: PARoxetine 20 MG Tab PO SCH (13:04)
--- NOTE | 2020-10-04 13:42 | CT ---
Shoulder wo Cont Rt CLINICAL HISTORY: Humeral fracture TECHNIQUE: Thin section axial tomographic images are obtained through the right shoulder without contrast enhancement. Images were reconstructed in the sagittal and coronal planes. Auto dosage reduction and iterative reconstruction techniques employed. FINDINGS: There is a comminuted fracture of the proximal humerus involving the head subcapital region. There are multiple displaced fragments posteriorly and anteriorly. There are some small bone shards in the upper portion of the glenohumeral joint and in the region of the supraspinatus tendon and subscapularis tendon. The scapula and clavicle appear intact. AC joint appears intact. IMPRESSION: Comminuted displaced fractures through the head subcapital region of the humerus
--- NOTE | 2020-10-04 14:18 | PCM.CONS ---
H&P History of Present Illness - General Date of Service: 10/04/20 Admit Problem/Dx: Admission Diagnosis/Problem Admission Diagnosis/Problem Fracture of humerus, proximal, right, closed Source of Information: Patient, Old Records, Provider History Limitations: Reports: No Limitations - History of Present Illness Initial Comments - Free Text/Narative: 55 year old male well known to me from left shoulder fracture admitted with syncope and right proximal humerus fracture from slip and fall. Reports slipping on ice and landing onto his right side. Evaluated in the ED and found to have a comminuted fracture of the humeral head. Onset of Symptoms: Reports: Sudden Location: Reports: Upper Extremity, Right Quality: Reports: Stabbing Severity: Severe Improves with: Reports: Immobilization Worsens with: Reports: Movement Right Shoulder Pain Score (Numeric/FACES): 5 - Related Data Allergies/Adverse Reactions: Allergies Allergy/AdvReac Type Severity Reaction Status Date / Time No Known Allergies Allergy Verified 10/03/20 18:02 Home Medications: Home Meds Aspirin [Ashkan Chewable Aspirin] 81 mg PO DAILY 06/17/13 [History] Calcium Carb/Vitamin D3/Vit K1 [Calcium + D Soft Chewable Tab] 1 each PO TID 06/17/13 [History] InFLIXimab [Remicade] 100 mg IV Q30D 06/17/13 [History] Lisinopril 10 mg PO DAILY 06/17/13 [History] Multivitamin [Multi-Vitamin Daily] 1 tab PO DAILY 06/17/13 [History] Simvastatin 20 mg PO BEDTIME 06/17/13 [History] azaTHIOprine [Azathioprine] 5 tab PO DAILY 06/17/13 [History] ALPRAZolam [Xanax] 0.25 mg PO TID 07/09/19 [History] Albuterol Sulfate 2.5 mg IH Q6HR PRN 07/09/19 [History] Fluticasone Propionate [Flonase] 50 mcg NS DAILY 07/09/19 [History] Loratadine 10 mg PO DAILY 07/09/19 [History] Omeprazole 40 mg PO ACBREAKFAST 07/09/19 [History] PARoxetine [Paxil] 40 mg PO DAILY 07/09/19 [History] Warfarin [Coumadin] 5 mg PO DAILY 07/09/19 [History] Acetaminophen [Tylenol] 1 - 2 tab PO Q4HR 09/17/19 [History] Past Medical History HEENT History: Reports: Impaired Vision Cardiovascular History: Reports: Blood Clots/VTE/DVT, High Cholesterol, Hypertension Respiratory History: Reports: None Gastrointestinal History: Reports: Other (See Below) Other Gastrointestinal History: chrones Genitourinary History: Reports: None Musculoskeletal History: Reports: Fracture Other Musculoskeletal History: L prox humerus Fx. s/p L proximal humeras fixation 07/15/19. Fell out of bed 07/21/19 landing on his L upper arm, states having more pain since then Neurological History: Reports: None Psychiatric History: Reports: None, Anxiety, Depression, Developmental Delay Endocrine/Metabolic History: Reports: Obesity/BMI 30+ Hematologic History: Reports: None Immunologic History: Reports: None Oncologic (Cancer) History: Reports: None Dermatologic History: Reports: None - Infectious Disease History Infectious Disease History: Reports: Chicken Pox - Past Surgical History Head Surgeries/Procedures: Reports: None GI Surgical History: Reports: Colon, Other (See Below) Other GI Surgeries/Procedures: large bowel removed Musculoskeletal Surgical History: Reports: Arthroscopic Knee, Other (See Below) Other Musculoskeletal Surgeries/Procedures:: ORIF l shoulder Jun 2019 Social & Family History - Family History Family Medical History: No Pertinent Family History - Tobacco Use Tobacco Use Status *Q: Current Every Day Tobacco User Years of Tobacco use: 32 Packs/Tins Daily: 1 - Caffeine Use Caffeine Use: Reports: Coffee, Soda - Recreational Drug Use Recreational Drug Use: No H&P Review of Systems - Review of Systems: Review Of Systems: See Below Musculoskeletal: Reports: Arm Pain Review of Systems Comment:: recent syncopal episodes Exam - Exam Exam: See Below - Vital Signs Vital Signs: Last Vital Signs Temp 36.6 C 10/04/20 12:05 Pulse 85 10/04/20 12:05 Resp 16 10/04/20 12:05 BP 124/75 10/04/20 12:05 Pulse Ox 94 L 10/04/20 12:05 Orthostatic Blood Pressure [ 97/72 Standing] Orthostatic Blood Pressure [ 110/69 Sitting] Orthostatic Blood Pressure [ 124/75 Supine] Weight: 142.972 kg - Exam General: Alert, Oriented Skin: Warm, Dry, Intact Neuro Extensive - Mental Status: Alert, Oriented x3, Normal Mood/Affect, Normal Cognition, Memory Intact Physical Exam Comments:: Right shoulder with swelling, pain with any motion and no active ROM of shoulder - Patient Data Lab Results Last 24 hrs: Laboratory Results - last 24 hr 10/03/20 10/03/20 10/03/20 Range/Units 19:18 19:18 19:18 WBC 11.1 H (4.5-11.0) K/uL RBC 4.65 (4.30-5.90) M/uL Hgb 15.6 H (12.0-15.0) g/dL Hct 48.1 (40.0-54.0) % MCV 103 H (80-98) fL MCH 34 H (27-31) pg MCHC 32 (32-36) % Plt Count 209 (150-400) K/uL Neut % (Auto) 89 H (36-66) % Lymph % (Auto) 5 L (24-44) % [place] % (Auto) 6 (2-6) % Eos % (Auto) 0 L (2-4) % Baso % (Auto) 0 (0-1) % PT (9.5-12.0) sec INR (0.80-1.20) Sodium 138 L (140-148) mmol/L Potassium 4.7 (3.6-5.2) mmol/L Chloride 102 (100-108) mmol/L Carbon Dioxide 24 (21-32) mmol/L Anion Gap 16.7 H (5.0-14.0) mmol/L BUN 23 H (7-18) mg/dL Creatinine 1.4 H (0.8-1.3) mg/dL Est Cr Clr Drug Dosing 72.33 mL/min Estimated GFR (MDRD) 52 L (>60) Glucose 142 H (74-106) mg/dL Calcium 8.5 (8.5-10.1) mg/dL Total Bilirubin 0.6 (0.2-1.0) mg/dL AST 22 (15-37) U/L ALT 35 (12-78) U/L Alkaline Phosphatase 67 (46-116) U/L Troponin I < 0.017 (0.000-0.056) ng/mL Total Protein 7.6 (6.4-8.2) g/dL Albumin 3.2 L (3.4-5.0) g/dL Globulin 4.4 H (2.3-3.5) g/dL Albumin/Globulin Ratio 0.7 L (1.2-2.2) Ethyl Alcohol < 3 mg/dL SARS-CoV-2 RNA (ESTEFANIA) (NEGATIVE) 10/03/20 10/04/20 10/04/20 Range/Units 22:27 04:15 04:15 WBC 8.8 (4.5-11.0) K/uL RBC 4.25 L (4.30-5.90) M/uL Hgb 14.5 (12.0-15.0) g/dL Hct 44.2 (40.0-54.0) % MCV 104 H (80-98) fL MCH 34 H (27-31) pg MCHC 33 (32-36) % Plt Count 187 (150-400) K/uL Neut % (Auto) (36-66) % Lymph % (Auto) (24-44) % [place] % (Auto) (2-6) % Eos % (Auto) (2-4) % Baso % (Auto) (0-1) % PT 17.5 H 14.9 H (9.5-12.0) sec INR 1.62 H D 1.38 H (0.80-1.20) Sodium (140-148) mmol/L Potassium (3.6-5.2) mmol/L Chloride (100-108) mmol/L Carbon Dioxide (21-32) mmol/L Anion Gap (5.0-14.0) mmol/L BUN (7-18) mg/dL Creatinine (0.8-1.3) mg/dL Est Cr Clr Drug Dosing mL/min Estimated GFR (MDRD) (>60) Glucose (74-106) mg/dL Calcium (8.5-10.1) mg/dL Total Bilirubin (0.2-1.0) mg/dL AST (15-37) U/L ALT (12-78) U/L Alkaline Phosphatase (46-116) U/L Troponin I (0.000-0.056) ng/mL Total Protein (6.4-8.2) g/dL Albumin (3.4-5.0) g/dL Globulin (2.3-3.5) g/dL Albumin/Globulin Ratio (1.2-2.2) Ethyl Alcohol mg/dL SARS-CoV-2 RNA (ESTEFANIA) (NEGATIVE) 10/04/20 10/04/20 Range/Units 04:15 04:20 WBC (4.5-11.0) K/uL RBC (4.30-5.90) M/uL Hgb (12.0-15.0) g/dL Hct (40.0-54.0) % MCV (80-98) fL MCH (27-31) pg MCHC (32-36) % Plt Count (150-400) K/uL Neut % (Auto) (36-66) % Lymph % (Auto) (24-44) % [place] % (Auto) (2-6) % Eos % (Auto) (2-4) % Baso % (Auto) (0-1) % PT (9.5-12.0) sec INR (0.80-1.20) Sodium 139 L (140-148) mmol/L Potassium 4.7 (3.6-5.2) mmol/L Chloride 104 (100-108) mmol/L Carbon Dioxide 26 (21-32) mmol/L Anion Gap 13.7 (5.0-14.0) mmol/L BUN 28 H (7-18) mg/dL Creatinine 1.4 H (0.8-1.3) mg/dL Est Cr Clr Drug Dosing 72.33 mL/min Estimated GFR (MDRD) 52 L (>60) Glucose 110 H (74-106) mg/dL Calcium 8.5 (8.5-10.1) mg/dL Total Bilirubin (0.2-1.0) mg/dL AST (15-37) U/L ALT (12-78) U/L Alkaline Phosphatase (46-116) U/L Troponin I (0.000-0.056) ng/mL Total Protein (6.4-8.2) g/dL Albumin (3.4-5.0) g/dL Globulin (2.3-3.5) g/dL Albumin/Globulin Ratio (1.2-2.2) Ethyl Alcohol mg/dL SARS-CoV-2 RNA (ESTEFANIA) Negative (NEGATIVE) Result Diagrams: 10/04/20 04:15 10/04/20 04:15 Sepsis Event Note - Evaluation Sepsis Screening Result: No Definite Risk - Focused Exam Vital Signs: Vital Signs Temp Pulse Resp BP Pulse Ox 01/05/21 12:05 36.6 C 85 16 124/75 94 L 10/04/20 07:13 35.8 C L 89 16 108/85 96 10/04/20 03:00 36.7 C 79 18 108/59 L 94 L *Q Meaningful Use (ADM) - VTE *Q VTE Pharmacological Contraindications *Q: Patient Scheduled Surgery Consult PN Assessment/Plan Procedures: Procedures ASSAY OF TROPONIN QUANT (09/04/14) ASSAY OF VANCOMYCIN (01/13/14) BLOOD CULTURE FOR BACTERIA (01/13/14) C-REACTIVE PROTEIN (01/13/14) COLONOSCOPY AND BIOPSY (06/19/13) COMPLETE CBC AUTOMATED (01/13/14) COMPLETE CBC W/AUTO DIFF WBC (09/04/14) CULTR BACTERIA EXCEPT BLOOD (01/13/14) CULTURE AEROBIC IDENTIFY (01/13/14) CULTURE OTHR SPECIMN AEROBIC (01/13/14) CULTURE SCREEN ONLY (06/19/13) EGD BIOPSY SINGLE/MULTIPLE (06/19/13) ELECTROCARDIOGRAM TRACING (09/04/14) EMERGENCY DEPT VISIT (07/28/19) EMERGENCY DEPT VISIT (09/04/14) EXTREMITY STUDY (04/16/17) EXTREMITY STUDY (02/07/16) EXTREMITY STUDY (12/10/14) FLUOROSCOPY <1 HR PHYS/QHP (07/15/19) IIV4 VACC NO PRSV 0.5 ML IM (09/17/19) IMMUNIZATION ADMIN (09/17/19) METABOLIC PANEL TOTAL CA (09/04/14) MICROBE SUSCEPTIBLE JENN (01/13/14) MRI JNT OF LWR EXTRE W/O DYE (08/01/15) NEG PRESS WOUND TX </=50 CM (01/13/14) OFFICE O/P EST LOW 20-29 MIN (04/19/20) OFFICE O/P NEW LOW 30-44 MIN (07/09/19) PROTHROMBIN TIME (01/08/20) PT EVAL LOW COMPLEX 20 MIN (07/15/19) ROUTINE VENIPUNCTURE (09/04/14) SMEAR GRAM STAIN (01/13/14) TISSUE EXAM BY PATHOLOGIST (06/19/13) TREAT HUMERUS FRACTURE (07/15/19) UPR/L XTREMITY ART 2 LEVELS (01/13/14) URINALYSIS AUTO W/SCOPE (09/04/14) US COMPL JOINT R-T W/IMG (01/13/14) X-RAY EXAM OF HUMERUS (07/28/19) X-RAY EXAM OF SHOULDER (02/25/20) X-RAY EXAM OF SHOULDER (08/18/19) X-RAY EXAM OF SHOULDER (07/28/19) (1) Closed fracture of proximal end of right humerus SNOMED Code(s): 04171664 Code(s): S42.201A - UNSP FRACTURE OF UPPER END OF RIGHT HUMERUS, INIT Current Visit: Yes Qualifiers: Encounter type: initial encounter Fracture morphology: other fracture Fracture alignment: displaced Qualified Code(s): S42.291A - Other displaced fracture of upper end of right humerus, initial encounter for closed fracture Assessment:: Displaced 4 part proximal humerus fracture (2) Syncope and collapse SNOMED Code(s): 459876478 Code(s): R55 - SYNCOPE AND COLLAPSE Current Visit: Yes Problem List Initiated/Reviewed/Updated: Yes My Orders Last 24 Hours: My Active Orders 10/04/20 Dinner NPO After Midnight [Nothing per Oral After Midnight Diet] [DIET] Regular Diet [DIET] Plan: Displaced 4 part proximal humerus fracture right arm. Recommend reconstruction with hemiarthroplasty. Implants have been ordered and should arrive in the morning, surgery can proceed in the afternoon. Ideally would like INR under 1.3, recheck in AM.
[2020-10-04] MEDS ORDERED: HYDROmorphone 0.5 MG/0.5 ML Syringe IVPUSH PRN (14:35)
--- NOTE | 2020-10-04 16:26 | PCM.PN ---
- General Info Date of Service: 10/04/20 Subjective Update: Mr. Gar is a 55-year-old gentleman who fell yesterday and experienced a right humerus fracture. He reports pain control is adequate when he is lying still. He has been seen and evaluated by Dr. Lowery, plan for surgical repair fracture in the next day or 2. Functional Status: Reports: Tolerating Diet, Urinating - Review of Systems General: Reports: No Symptoms HEENT: Reports: No Symptoms Pulmonary: Reports: No Symptoms Cardiovascular: Reports: No Symptoms Gastrointestinal: Reports: No Symptoms Musculoskeletal: Reports: Arm Pain (Right arm pain) - Patient Data Vitals - Most Recent: Last Vital Signs Temp 96.5 F L 10/04/20 15:23 Pulse 89 10/04/20 15:23 Resp 16 10/04/20 15:23 BP 120/73 10/04/20 15:23 Pulse Ox 93 L 10/04/20 15:23 Orthostatic Blood Pressure [ 97/72 Standing] Orthostatic Blood Pressure [ 110/69 Sitting] Orthostatic Blood Pressure [ 124/75 Supine] Weight - Most Recent: 315 lb 3.189 oz I&O - Last 24 Hours: Intake & Output 10/04/20 10/04/20 10/04/20 06:59 14:59 22:59 Intake Total 50 800 Output Total 1425 Balance 50 -625 Lab Results Last 24 Hours: Laboratory Results - last 24 hr 10/03/20 10/03/20 10/03/20 Range/Units 19:18 19:18 19:18 WBC 11.1 H (4.5-11.0) K/uL RBC 4.65 (4.30-5.90) M/uL Hgb 15.6 H (12.0-15.0) g/dL Hct 48.1 (40.0-54.0) % MCV 103 H (80-98) fL MCH 34 H (27-31) pg MCHC 32 (32-36) % Plt Count 209 (150-400) K/uL Neut % (Auto) 89 H (36-66) % Lymph % (Auto) 5 L (24-44) % [place] % (Auto) 6 (2-6) % Eos % (Auto) 0 L (2-4) % Baso % (Auto) 0 (0-1) % PT (9.5-12.0) sec INR (0.80-1.20) Sodium 138 L (140-148) mmol/L Potassium 4.7 (3.6-5.2) mmol/L Chloride 102 (100-108) mmol/L Carbon Dioxide 24 (21-32) mmol/L Anion Gap 16.7 H (5.0-14.0) mmol/L BUN 23 H (7-18) mg/dL Creatinine 1.4 H (0.8-1.3) mg/dL Est Cr Clr Drug Dosing 72.33 mL/min Estimated GFR (MDRD) 52 L (>60) Glucose 142 H (74-106) mg/dL Calcium 8.5 (8.5-10.1) mg/dL Total Bilirubin 0.6 (0.2-1.0) mg/dL AST 22 (15-37) U/L ALT 35 (12-78) U/L Alkaline Phosphatase 67 (46-116) U/L Troponin I < 0.017 (0.000-0.056) ng/mL Total Protein 7.6 (6.4-8.2) g/dL Albumin 3.2 L (3.4-5.0) g/dL Globulin 4.4 H (2.3-3.5) g/dL Albumin/Globulin Ratio 0.7 L (1.2-2.2) Ethyl Alcohol < 3 mg/dL SARS-CoV-2 RNA (ESTEFANIA) (NEGATIVE) 10/03/20 10/04/20 10/04/20 Range/Units 22:27 04:15 04:15 WBC 8.8 (4.5-11.0) K/uL RBC 4.25 L (4.30-5.90) M/uL Hgb 14.5 (12.0-15.0) g/dL Hct 44.2 (40.0-54.0) % MCV 104 H (80-98) fL MCH 34 H (27-31) pg MCHC 33 (32-36) % Plt Count 187 (150-400) K/uL Neut % (Auto) (36-66) % Lymph % (Auto) (24-44) % [place] % (Auto) (2-6) % Eos % (Auto) (2-4) % Baso % (Auto) (0-1) % PT 17.5 H 14.9 H (9.5-12.0) sec INR 1.62 H D 1.38 H (0.80-1.20) Sodium (140-148) mmol/L Potassium (3.6-5.2) mmol/L Chloride (100-108) mmol/L Carbon Dioxide (21-32) mmol/L Anion Gap (5.0-14.0) mmol/L BUN (7-18) mg/dL Creatinine (0.8-1.3) mg/dL Est Cr Clr Drug Dosing mL/min Estimated GFR (MDRD) (>60) Glucose (74-106) mg/dL Calcium (8.5-10.1) mg/dL Total Bilirubin (0.2-1.0) mg/dL AST (15-37) U/L ALT (12-78) U/L Alkaline Phosphatase (46-116) U/L Troponin I (0.000-0.056) ng/mL Total Protein (6.4-8.2) g/dL Albumin (3.4-5.0) g/dL Globulin (2.3-3.5) g/dL Albumin/Globulin Ratio (1.2-2.2) Ethyl Alcohol mg/dL SARS-CoV-2 RNA (ESTEFANIA) (NEGATIVE) 10/04/20 10/04/20 Range/Units 04:15 04:20 WBC (4.5-11.0) K/uL RBC (4.30-5.90) M/uL Hgb (12.0-15.0) g/dL Hct (40.0-54.0) % MCV (80-98) fL MCH (27-31) pg MCHC (32-36) % Plt Count (150-400) K/uL Neut % (Auto) (36-66) % Lymph % (Auto) (24-44) % [place] % (Auto) (2-6) % Eos % (Auto) (2-4) % Baso % (Auto) (0-1) % PT (9.5-12.0) sec INR (0.80-1.20) Sodium 139 L (140-148) mmol/L Potassium 4.7 (3.6-5.2) mmol/L Chloride 104 (100-108) mmol/L Carbon Dioxide 26 (21-32) mmol/L Anion Gap 13.7 (5.0-14.0) mmol/L BUN 28 H (7-18) mg/dL Creatinine 1.4 H (0.8-1.3) mg/dL Est Cr Clr Drug Dosing 72.33 mL/min Estimated GFR (MDRD) 52 L (>60) Glucose 110 H (74-106) mg/dL Calcium 8.5 (8.5-10.1) mg/dL Total Bilirubin (0.2-1.0) mg/dL AST (15-37) U/L ALT (12-78) U/L Alkaline Phosphatase (46-116) U/L Troponin I (0.000-0.056) ng/mL Total Protein (6.4-8.2) g/dL Albumin (3.4-5.0) g/dL Globulin (2.3-3.5) g/dL Albumin/Globulin Ratio (1.2-2.2) Ethyl Alcohol mg/dL SARS-CoV-2 RNA (ESTEFANIA) Negative (NEGATIVE) Med Orders - Current: Current Medications Acetaminophen (Tylenol) 650 mg PO Q4H PRN PRN Reason: Pain (Mild 1-3)/fever Albuterol (Proventil Neb Soln) 2.5 mg NEB Q4H PRN PRN Reason: Shortness Of Breath/wheezing Alprazolam (Xanax) 0.25 mg PO TID [facility] Last Admin: 10/04/20 13:04 Dose: 0.25 mg Documented by: Aspirin (Aspirin) 81 mg PO DAILY [facility] Last Admin: 10/04/20 12:54 Dose: Not Given Documented by: Azathioprine (Imuran) 250 mg PO DAILY [facility] Last Admin: 10/04/20 13:05 Dose: 250 mg Documented by: Fluticasone Propionate (Flonase) 0 gm NASBOTH DAILY [facility] Last Admin: 10/04/20 09:11 Dose: Not Given Documented by: Hydromorphone HCl (Dilaudid) 0.5 mg IVPUSH Q2H PRN PRN Reason: Pain (severe 7-10) Sodium Chloride (Normal Saline) 1,000 mls @ 75 mls/hr IV ASDIRECTED [facility] Loratadine (Claritin) 10 mg PO DAILY [facility] Last Admin: 10/04/20 13:04 Dose: 10 mg Documented by: Lorazepam (Ativan) 0.5 mg IVPUSH Q4H PRN PRN Reason: Nausea/Vomiting Magnesium Hydroxide (Milk Of Magnesia) 30 ml PO Q12H PRN PRN Reason: Constipation Melatonin (Melatonin) 9 mg PO BEDTIME [facility] Nicotine (Habitrol) 14 mg TRDERM DAILY [facility] Last Admin: 10/04/20 09:06 Dose: 14 mg Documented by: Ondansetron HCl (Zofran) 4 mg IV Q6H PRN PRN Reason: Nausea/Vomiting Ondansetron HCl (Zofran Odt) 4 mg PO Q6H PRN PRN Reason: Nausea able to take PO Oxycodone HCl (Oxycodone) 5 - 10 mg PO Q4H PRN PRN Reason: Pain Last Admin: 10/04/20 12:02 Dose: 10 mg Documented by: Pantoprazole Sodium (Protonix) 40 mg PO ACBREAKFAST [facility] Last Admin: 10/04/20 13:06 Dose: 40 mg Documented by: Paroxetine HCl (Paxil) 40 mg PO DAILY [facility] Last Admin: 10/04/20 13:04 Dose: 40 mg Documented by: Senna/Docusate Sodium (Senna Plus) 1 tab PO BID PRN PRN Reason: Constipation Simvastatin (Zocor) 20 mg PO BEDTIME [facility] Discontinued Medications Hydromorphone HCl (Dilaudid) 0.5 mg IVPUSH ONETIME ONE Stop: 10/03/20 21:47 Last Admin: 10/03/20 22:07 Dose: 0.5 mg Documented by: Hydromorphone HCl (Dilaudid) 0.5 mg IVPUSH Q2H PRN PRN Reason: Pain (severe 7-10) Last Admin: 10/04/20 14:35 Dose: 0.5 mg Documented by: Sodium Chloride (Normal Saline) 1,000 mls @ 125 mls/hr IV ASDIRECTED [facility] Last Admin: 10/04/20 09:04 Dose: 125 mls/hr Documented by: Phytonadione 1 mg/ Sodium (Chloride) 50.5 mls @ 100 mls/hr IV ONETIME ONE Stop: 10/04/20 00:10 Last Admin: 10/04/20 00:26 Dose: 100 mls/hr Documented by: Ketorolac Tromethamine (Toradol) 30 mg IM ONETIME ONE Stop: 10/03/20 18:52 Last Admin: 10/03/20 19:48 Dose: 30 mg Documented by: - Exam Quality Assessment: DVT Prophylaxis General: Alert, Oriented, Cooperative, Moderate Distress Lungs: Clear to Auscultation, Normal Respiratory Effort Cardiovascular: Regular Rate, Regular Rhythm, No Murmurs GI/Abdominal Exam: Soft, Non-Tender, No Organomegaly, No Distention Extremities: No Pedal Edema Sepsis Event Note - Evaluation Sepsis Screening Result: No Definite Risk - Focused Exam Vital Signs: Vital Signs Temp Temp Pulse Resp BP Pulse Ox 10/04/20 15:23 96.5 F L 89 16 120/73 93 L 10/04/20 12:05 97.8 F 85 16 124/75 94 L 10/04/20 07:13 96.5 F L 89 16 108/85 96 - Problem List Review Problem List Initiated/Reviewed/Updated: Yes - My Orders Last 24 Hours: My Active Orders 10/04/20 10:34 Orthostatic Vital Signs [RC] Q6HR 10/04/20 16:30 Sodium Chloride 0.9% @ 75 MLS/HR(1000ml) Sodium Chloride 0.9% [Normal Saline] 1,000 ml IV ASDIRECTED 10/05/20 05:00 BASIC METABOLIC PANEL,BMP [CHEM] Timed INR,PT,PROTHROMBIN TIME [COAG] Timed 10/05/20 05:11 HGB [HEMOGLOBIN] [HEME] AM - Plan Plan:: ASSESSMENT AND PLAN - Comminuted proximal right humerus fracture-secondary to fall. -Pain control -Surgical follow-up per Dr. Lowery -Nothing by mouth after midnight -physical therapy when indicated Syncope and collapse-stable since admission with no further episodes of lightheadedness -Orthostatic vital signs every 6 hours -Discontinue lisinopril -Cardiac monitoring -IV fluids overnight -Labs in the morning History of Crohn's disease-stable. -Continue azathioprine History of DVT-after 1 mg of IV vitamin K, INR is now down to 1.38 -Repeat INR in the morning Maintenance issues - - DVT prophylaxis -mechanical - GI prophylaxis -PPI - Nutrition -n.p.o. after midnight - Chacko catheter -not indicated CODE STATUS -full code Admission justification -this patient will be admitted for inpatient services and is medically appropriate meeting medical necessity for inpatient admission as outlined in my documentation. I reasonably expect the patient will require inpatient services that span a period time over 2 midnights. I reasonably expect this patient to be discharged or transferred within 96 hours after admission to the [facility]. Disposition - anticipate discharge home after the hospital stay Primary care physician -Dr. Grullon
[2020-10-04] MEDS: Simvastatin 20 MG Tab PO SCH (21:06)
[2020-10-04] MEDS: Melatonin 3 MG Tab PO SCH (21:06)
[2020-10-05] MEDS: oxyCODONE 5 MG Tab PO PRN ×4 (01:58→21:53)
[2020-10-05] MEDS: Sodium Chloride 0.9% 1,000 ML IV SCH ×2 (06:52→17:45)
[2020-10-05] MEDS: Pantoprazole 40 MG Tab.CR PO SCH (08:59)
[2020-10-05] MEDS ORDERED: fentaNYL 250 MCG/5 ML SDV ONE ×2 (09:01→11:44)
[2020-10-05] MEDS ORDERED: Rocuronium 50 MG/5 ML Vial ONE (09:02)
[2020-10-05] MEDS ORDERED: Glycopyrrolate 0.2 MG/ML 5 ML MDV ONE (09:02)
[2020-10-05] MEDS ORDERED: Propofol 200 MG/20 ML SDV ONE (09:02)
[2020-10-05] MEDS ORDERED: Ondansetron 4 MG/2 ML SDV ONE (09:02)
[2020-10-05] MEDS ORDERED: Succinylcholine 200 MG/10 ML MDV ONE (09:02)
[2020-10-05] MEDS ORDERED: Neostigmine Methylsulfate 1 MG/ML 5 ML Syringe ONE (09:02)
[2020-10-05] MEDS ORDERED: Dexamethasone 4 MG/ML SDV ONE (09:02)
[2020-10-05] MEDS ORDERED: Povidone-Iodine 10% Soln 118.25 ML Bottle ONE (09:53)
[2020-10-05] MEDS ORDERED: Bupivacaine 0.5% 30 ML SDV ONE ×2 (09:59)
[2020-10-05] MEDS ORDERED: Lactated Ringers 1,000 ML ONE (12:15)
[2020-10-05] MEDS: Fluticasone Propionate Nasal Spray 16 GM Bottle NASBOTH SCH (12:58)
[2020-10-05] MEDS: ALPRAZolam 0.25 MG Tab PO SCH ×3 (12:58→21:52)
--- NOTE | 2020-10-05 14:24 | PCM.PN ---
- General Info Date of Service: 10/05/20 Subjective Update: Mr. Gar able following surgical repair of his right humerus fracture this afternoon. He is still somewhat sedated and unable to provide a meaningful history concerning symptoms or review of systems. - Patient Data Vitals - Most Recent: Last Vital Signs Temp 96.1 F L 10/05/20 14:10 Pulse 73 10/05/20 14:15 Resp 16 10/05/20 14:15 BP 109/70 10/05/20 14:15 Pulse Ox 95 10/05/20 14:15 Orthostatic Blood Pressure [ 122/81 Standing] Orthostatic Blood Pressure [ 128/87 Sitting] Orthostatic Blood Pressure [ 122/74 Supine] Weight - Most Recent: 315 lb 3.189 oz I&O - Last 24 Hours: Intake & Output 10/04/20 10/05/20 10/05/20 22:59 06:59 14:59 Intake Total 2687 950 Output Total 1150 600 Balance 1537 350 Lab Results Last 24 Hours: Laboratory Results - last 24 hr 10/05/20 10/05/20 10/05/20 Range/Units 05:30 05:30 05:30 Hgb 13.2 (12.0-15.0) g/dL PT 11.5 (9.5-12.0) sec INR 1.06 (0.80-1.20) Sodium 135 L (140-148) mmol/L Potassium 4.1 (3.6-5.2) mmol/L Chloride 103 (100-108) mmol/L Carbon Dioxide 26 (21-32) mmol/L Anion Gap 10.1 (5.0-14.0) mmol/L BUN 19 H (7-18) mg/dL Creatinine 1.0 (0.8-1.3) mg/dL Est Cr Clr Drug Dosing 101.22 mL/min Estimated GFR (MDRD) > 60 (>60) Glucose 112 H (74-106) mg/dL Calcium 8.1 L (8.5-10.1) mg/dL Med Orders - Current: Current Medications Acetaminophen (Tylenol) 650 mg PO Q4H PRN PRN Reason: Pain (Mild 1-3)/fever Albuterol (Proventil Neb Soln) 2.5 mg NEB Q4H PRN PRN Reason: Shortness Of Breath/wheezing Alprazolam (Xanax) 0.25 mg PO TID [facility] Last Admin: 10/05/20 12:58 Dose: Not Given Documented by: Aspirin (Aspirin) 81 mg PO DAILY [facility] Last Admin: 10/04/20 12:54 Dose: Not Given Documented by: Azathioprine (Imuran) 250 mg PO DAILY [facility] Last Admin: 10/04/20 13:05 Dose: 250 mg Documented by: Fluticasone Propionate (Flonase) 0 gm NASBOTH DAILY [facility] Last Admin: 10/05/20 12:58 Dose: Not Given Documented by: Hydromorphone HCl (Dilaudid) 0.5 mg IVPUSH Q2H PRN PRN Reason: Pain (severe 7-10) Sodium Chloride (Normal Saline) 1,000 mls @ 75 mls/hr IV ASDIRECTED [facility] Last Admin: 10/05/20 06:52 Dose: 75 mls/hr Documented by: Loratadine (Claritin) 10 mg PO DAILY [facility] Last Admin: 10/04/20 13:04 Dose: 10 mg Documented by: Lorazepam (Ativan) 0.5 mg IVPUSH Q4H PRN PRN Reason: Nausea/Vomiting Magnesium Hydroxide (Milk Of Magnesia) 30 ml PO Q12H PRN PRN Reason: Constipation Melatonin (Melatonin) 9 mg PO BEDTIME [facility] Last Admin: 10/04/20 21:06 Dose: 9 mg Documented by: Nicotine (Habitrol) 14 mg TRDERM DAILY [facility] Last Admin: 10/04/20 09:06 Dose: 14 mg Documented by: Ondansetron HCl (Zofran) 4 mg IV Q6H PRN PRN Reason: Nausea/Vomiting Ondansetron HCl (Zofran Odt) 4 mg PO Q6H PRN PRN Reason: Nausea able to take PO Oxycodone HCl (Oxycodone) 5 - 10 mg PO Q4H PRN PRN Reason: Pain Last Admin: 10/05/20 06:55 Dose: 5 mg Documented by: Pantoprazole Sodium (Protonix) 40 mg PO ACBREAKFAST [facility] Last Admin: 10/05/20 08:59 Dose: Not Given Documented by: Paroxetine HCl (Paxil) 40 mg PO DAILY [facility] Last Admin: 10/04/20 13:04 Dose: 40 mg Documented by: Senna/Docusate Sodium (Senna Plus) 1 tab PO BID PRN PRN Reason: Constipation Simvastatin (Zocor) 20 mg PO BEDTIME [facility] Last Admin: 10/04/20 21:06 Dose: 20 mg Documented by: Discontinued Medications Bupivacaine HCl (Marcaine 0.5%) Confirm Administered Dose 30 ml .ROUTE .STK-MED ONE Stop: 10/05/20 10:00 Bupivacaine HCl (Marcaine 0.5%) Confirm Administered Dose 30 ml .ROUTE .STK-MED ONE Stop: 10/05/20 10:00 Dexamethasone (Decadron) Confirm Administered Dose 4 mg .ROUTE .STK-MED ONE Stop: 10/05/20 09:03 Fentanyl (Sublimaze) Confirm Administered Dose 250 mcg .ROUTE .STK-MED ONE Stop: 10/05/20 09:02 Fentanyl (Sublimaze) Confirm Administered Dose 250 mcg .ROUTE .STK-MED ONE Stop: 10/05/20 11:45 Glycopyrrolate (Robinul) Confirm Administered Dose 1 mg .ROUTE .STK-MED ONE Stop: 10/05/20 09:03 Hydromorphone HCl (Dilaudid) 0.5 mg IVPUSH ONETIME ONE Stop: 10/03/20 21:47 Last Admin: 10/03/20 22:07 Dose: 0.5 mg Documented by: Hydromorphone HCl (Dilaudid) 0.5 mg IVPUSH Q2H PRN PRN Reason: Pain (severe 7-10) Last Admin: 10/04/20 14:35 Dose: 0.5 mg Documented by: Sodium Chloride (Normal Saline) 1,000 mls @ 125 mls/hr IV ASDIRECTED [facility] Last Admin: 10/04/20 09:04 Dose: 125 mls/hr Documented by: Phytonadione 1 mg/ Sodium (Chloride) 50.5 mls @ 100 mls/hr IV ONETIME ONE Stop: 10/04/20 00:10 Last Admin: 10/04/20 00:26 Dose: 100 mls/hr Documented by: Lactated Ringer's (Ringers, Lactated) Confirm Administered Dose 1,000 mls @ as directed .ROUTE .STK-MED ONE Stop: 10/05/20 12:16 Ketorolac Tromethamine (Toradol) 30 mg IM ONETIME ONE Stop: 10/03/20 18:52 Last Admin: 10/03/20 19:48 Dose: 30 mg Documented by: Neostigmine Methylsulfate (Neostigmine) Confirm Administered Dose 5 mg .ROUTE .STK-MED ONE Stop: 10/05/20 09:03 Ondansetron HCl (Zofran) Confirm Administered Dose 4 mg .ROUTE .STK-MED ONE Stop: 10/05/20 09:03 Povidone Iodine (Betadine 10% Soln) Confirm Administered Dose 1 ml .ROUTE .STK- MED ONE Stop: 10/05/20 09:54 Last Admin: 10/05/20 13:28 Dose: 20 ml Documented by: Propofol (Diprivan 20 Ml) Confirm Administered Dose 200 mg .ROUTE .STK-MED ONE Stop: 10/05/20 09:03 Rocuronium [place] (Zemuron) Confirm Administered Dose 50 mg .ROUTE .STK-MED ONE Stop: 10/05/20 09:03 Succinylcholine Chloride (Quelicin) Confirm Administered Dose 200 mg .ROUTE .ST-MED ONE Stop: 10/05/20 09:03 - Exam General: Sedated, Lethargic Lungs: Clear to Auscultation, Normal Respiratory Effort Cardiovascular: Regular Rate, Regular Rhythm, No Murmurs GI/Abdominal Exam: Soft, Non-Tender, No Organomegaly, No Distention Sepsis Event Note - Evaluation Sepsis Screening Result: No Definite Risk - Focused Exam Vital Signs: Vital Signs Temp Temp Pulse Resp BP Pulse Ox 10/05/20 14:15 73 16 109/70 95 10/05/20 14:10 96.1 F L 76 16 107/72 95 10/05/20 14:05 69 16 112/67 97 10/05/20 14:00 61 16 90/60 96 10/05/20 13:50 96.1 F L 70 16 104/60 97 10/05/20 09:54 96.0 F L 88 18 120/78 94 L 10/05/20 07:00 96.8 F L 87 18 122/74 96 10/05/20 03:00 96.5 F L 88 18 114/73 94 L - Problem List Review Problem List Initiated/Reviewed/Updated: Yes - My Orders Last 24 Hours: My Active Orders 10/04/20 16:30 Sodium Chloride 0.9% [Normal Saline] 1,000 ml IV ASDIRECTED - Plan Plan:: ASSESSMENT AND PLAN - Comminuted proximal right humerus fracture-secondary to fall. Status post surgical repair this afternoon by Dr. Lowery -Postoperative care per Dr. Lowery Syncope and collapse-stable since admission with no further episodes of lighth eadedness -Discontinue lisinopril History of Crohn's disease-stable. -Continue azathioprine History of DVT -Resume warfarin when stable surgically Maintenance issues - - DVT prophylaxis -mechanical - GI prophylaxis -PPI - Nutrition -regular diet - Chacko catheter -not indicated CODE STATUS -full code Admission justification -this patient will be admitted for inpatient services and is medically appropriate meeting medical necessity for inpatient admission as outlined in my documentation. I reasonably expect the patient will require inpatient services that span a period time over 2 midnights. I reasonably expect this patient to be discharged or transferred within 96 hours [facility] Disposition - anticipate discharge to acute rehab Primary care physician -Dr. Grullon
--- NOTE | 2020-10-05 15:45 | CR ---
Shoulder 1V Rt CLINICAL HISTORY: Postop FINDINGS: Patient is status post placement of a humeral arthroplasty. Patient had a comminuted displaced fracture of the proximal humerus. IMPRESSION: STATUS post placement of a right humeral prosthesis following comminuted fracture
[2020-10-05] MEDS: Acetaminophen 325 MG Tab PO PRN ×2 (16:43→21:52)
[2020-10-05] MEDS: Nicotine 14 MG/24 Hr Patch TRDERM SCH (16:43)
[2020-10-05] MEDS: PARoxetine 20 MG Tab PO SCH (16:44)
[2020-10-05] MEDS: Aspirin 81 MG Tab.Chew PO SCH (16:44)
[2020-10-05] MEDS: Loratadine 10 MG Tab PO SCH (16:44)
[2020-10-05] MEDS: Melatonin 3 MG Tab PO SCH (21:52)
[2020-10-05] MEDS: Simvastatin 20 MG Tab PO SCH (21:53)
[2020-10-06] MEDS: Pantoprazole 40 MG Tab.CR PO SCH (08:56)
[2020-10-06] MEDS: Fluticasone Propionate Nasal Spray 16 GM Bottle NASBOTH SCH (08:56)
[2020-10-06] MEDS: Nicotine 14 MG/24 Hr Patch TRDERM SCH (09:18)
[2020-10-06] MEDS: Aspirin 81 MG Tab.Chew PO SCH (09:18)
[2020-10-06] MEDS: Loratadine 10 MG Tab PO SCH (09:18)
[2020-10-06] MEDS: PARoxetine 20 MG Tab PO SCH (09:19)
[2020-10-06] MEDS: ALPRAZolam 0.25 MG Tab PO SCH ×3 (09:21→20:28)
[2020-10-06] MEDS: oxyCODONE 5 MG Tab PO PRN ×2 (14:54→20:28)
--- NOTE | 2020-10-06 14:57 | PCM.PN ---
- General Info Date of Service: 10/06/20 Subjective Update: Mr. Gar's been stable since surgery yesterday. Reports that his current pain control is adequate. Functional Status: Reports: Tolerating Diet, Ambulating, Urinating - Review of Systems General: Reports: No Symptoms Pulmonary: Reports: No Symptoms Cardiovascular: Reports: No Symptoms Gastrointestinal: Reports: No Symptoms - Patient Data Vitals - Most Recent: Last Vital Signs Temp 98.2 F 10/06/20 14:35 Pulse 82 10/06/20 14:35 Resp 18 10/06/20 14:35 BP 132/72 10/06/20 14:35 Pulse Ox 97 10/06/20 14:35 Orthostatic Blood Pressure [ 122/81 Standing] Orthostatic Blood Pressure [ 128/87 Sitting] Orthostatic Blood Pressure [ 122/74 Supine] Weight - Most Recent: 315 lb 3.189 oz I&O - Last 24 Hours: Intake & Output 10/05/20 10/06/20 10/06/20 22:59 06:59 14:59 Intake Total 2526 1588 Output Total 95 10 595 Balance 2431 1578 -595 Med Orders - Current: Current Medications Acetaminophen (Tylenol) 650 mg PO Q4H PRN PRN Reason: Pain (Mild 1-3)/fever Last Admin: 10/05/20 21:52 Dose: 650 mg Documented by: Albuterol (Proventil Neb Soln) 2.5 mg NEB Q4H PRN PRN Reason: Shortness Of Breath/wheezing Alprazolam (Xanax) 0.25 mg PO TID [facility] Last Admin: 10/06/20 14:54 Dose: 0.25 mg Documented by: Aspirin (Aspirin) 81 mg PO DAILY [facility] Last Admin: 10/06/20 09:18 Dose: 81 mg Documented by: Azathioprine (Imuran) 250 mg PO DAILY [facility] Last Admin: 10/06/20 09:18 Dose: 250 mg Documented by: Fluticasone Propionate (Flonase) 0 gm NASBOTH DAILY [facility] Last Admin: 10/06/20 08:56 Dose: 1 spray Documented by: Hydromorphone HCl (Dilaudid) 0.5 mg IVPUSH Q2H PRN PRN Reason: Pain (severe 7-10) Sodium Chloride (Normal Saline) 1,000 mls @ 75 mls/hr IV ASDIRECTED [facility] Last Admin: 10/05/20 17:45 Dose: 75 mls/hr Documented by: Loratadine (Claritin) 10 mg PO DAILY [facility] Last Admin: 10/06/20 09:18 Dose: 10 mg Documented by: Lorazepam (Ativan) 0.5 mg IVPUSH Q4H PRN PRN Reason: Nausea/Vomiting Magnesium Hydroxide (Milk Of Magnesia) 30 ml PO Q12H PRN PRN Reason: Constipation Melatonin (Melatonin) 9 mg PO BEDTIME [facility] Last Admin: 10/05/20 21:52 Dose: 9 mg Documented by: Nicotine (Habitrol) 14 mg TRDERM DAILY [facility] Last Admin: 10/06/20 09:18 Dose: 14 mg Documented by: Ondansetron HCl (Zofran) 4 mg IV Q6H PRN PRN Reason: Nausea/Vomiting Ondansetron HCl (Zofran Odt) 4 mg PO Q6H PRN PRN Reason: Nausea able to take PO Oxycodone HCl (Oxycodone) 5 - 10 mg PO Q4H PRN PRN Reason: Pain Last Admin: 10/06/20 14:54 Dose: 5 mg Documented by: Pantoprazole Sodium (Protonix) 40 mg PO ACBREAKFAST [facility] Last Admin: 10/06/20 08:56 Dose: 40 mg Documented by: Paroxetine HCl (Paxil) 40 mg PO DAILY [facility] Last Admin: 10/06/20 09:19 Dose: 40 mg Documented by: Senna/Docusate Sodium (Senna Plus) 1 tab PO BID PRN PRN Reason: Constipation Simvastatin (Zocor) 20 mg PO BEDTIME [facility] Last Admin: 10/05/20 21:53 Dose: 20 mg Documented by: Discontinued Medications Bupivacaine HCl (Marcaine 0.5%) Confirm Administered Dose 30 ml .ROUTE .STK-MED ONE Stop: 10/05/20 10:00 Bupivacaine HCl (Marcaine 0.5%) Confirm Administered Dose 30 ml .ROUTE .STK-MED ONE Stop: 10/05/20 10:00 Dexamethasone (Decadron) Confirm Administered Dose 4 mg .ROUTE .STK-MED ONE Stop: 10/05/20 09:03 Fentanyl (Sublimaze) Confirm Administered Dose 250 mcg .ROUTE .STK-MED ONE Stop: 10/05/20 09:02 Fentanyl (Sublimaze) Confirm Administered Dose 250 mcg .ROUTE .STK-MED ONE Stop: 10/05/20 11:45 Glycopyrrolate (Robinul) Confirm Administered Dose 1 mg .ROUTE .STK-MED ONE Stop: 10/05/20 09:03 Hydromorphone HCl (Dilaudid) 0.5 mg IVPUSH ONETIME ONE Stop: 10/03/20 21:47 Last Admin: 10/03/20 22:07 Dose: 0.5 mg Documented by: Hydromorphone HCl (Dilaudid) 0.5 mg IVPUSH Q2H PRN PRN Reason: Pain (severe 7-10) Last Admin: 10/04/20 14:35 Dose: 0.5 mg Documented by: Sodium Chloride (Normal Saline) 1,000 mls @ 125 mls/hr IV ASDIRECTED [facility] Last Admin: 10/04/20 09:04 Dose: 125 mls/hr Documented by: Phytonadione 1 mg/ Sodium (Chloride) 50.5 mls @ 100 mls/hr IV ONETIME ONE Stop: 10/04/20 00:10 Last Admin: 10/04/20 00:26 Dose: 100 mls/hr Documented by: Lactated Ringer's (Ringers, Lactated) Confirm Administered Dose 1,000 mls @ as directed .ROUTE .STK-MED ONE Stop: 10/05/20 12:16 Ketorolac Tromethamine (Toradol) 30 mg IM ONETIME ONE Stop: 10/03/20 18:52 Last Admin: 10/03/20 19:48 Dose: 30 mg Documented by: Neostigmine Methylsulfate (Neostigmine) Confirm Administered Dose 5 mg .ROUTE .STK-MED ONE Stop: 10/05/20 09:03 Ondansetron HCl (Zofran) Confirm Administered Dose 4 mg .ROUTE .STK-MED ONE Stop: 10/05/20 09:03 Povidone Iodine (Betadine 10% Soln) Confirm Administered Dose 1 ml .ROUTE .STK- MED ONE Stop: 10/05/20 09:54 Last Admin: 10/05/20 13:28 Dose: 20 ml Documented by: Propofol (Diprivan 20 Ml) Confirm Administered Dose 200 mg .ROUTE .STK-MED ONE Stop: 10/05/20 09:03 Rocuronium [place] (Zemuron) Confirm Administered Dose 50 mg .ROUTE .STK-MED ONE Stop: 10/05/20 09:03 Succinylcholine Chloride (Quelicin) Confirm Administered Dose 200 mg .ROUTE .STK-MED ONE Stop: 10/05/20 09:03 - Exam Quality Assessment: DVT Prophylaxis General: Alert, Oriented, Cooperative, Mild Distress Lungs: Clear to Auscultation, Normal Respiratory Effort Cardiovascular: Regular Rate, Regular Rhythm, No Murmurs GI/Abdominal Exam: Soft, Non-Tender, No Organomegaly, No Distention Extremities: No Pedal Edema Sepsis Event Note - Evaluation Sepsis Screening Result: No Definite Risk - Focused Exam Vital Signs: Vital Signs Temp Pulse Resp BP BP Pulse Ox 10/06/20 14:35 98.2 F 82 18 132/72 97 10/06/20 10:58 97.2 F 79 18 101/64 97 10/06/20 07:00 97.2 F 79 18 104/66 94 L - Problem List Review Problem List Initiated/Reviewed/Updated: Yes - My Orders Last 24 Hours: My Active Orders 10/05/20 14:23 Discontinue Telemetry Monitoring [Cardiac Monitoring Discontinue] [RC] Click to Edit - Plan Plan:: ASSESSMENT AND PLAN - Comminuted proximal right humerus fracture-secondary to fall. Status post surgical repair by Dr. Lowery -Postoperative care per Dr. Lowery Syncope and collapse-stable since admission with no further episodes of lightheadedness -Discontinue lisinopril History of Crohn's disease-stable. -Continue azathioprine History of DVT -Resume warfarin when stable surgically Maintenance issues - - DVT prophylaxis -mechanical - GI prophylaxis -PPI - Nutrition -regular diet - Chacko catheter -not indicated CODE STATUS -full code Admission justification -this patient will be admitted for inpatient services and is medically appropriate meeting medical necessity for inpatient admission as outlined in my documentation. I reasonably expect the patient will require inpatient services that span a period time over 2 midnights. I reasonably expect this patient to be discharged or transferred within 96 hours after admission to the [facility]. Disposition - anticipate discharge to acute rehab Primary care physician -Dr. Grullon
--- NOTE | 2020-10-06 16:28 | PCM.SURGPN ---
- General Info Date of Service: 10/06/20 Date of Surgery/Procedure: 10/05/20 POD#: 1 Post-Op Diagnosis: right humeral head fracture Functional Status: Reports: Pain Controlled, Tolerating Diet, Incentive Spirometry - Review of Systems General: Reports: No Symptoms HEENT: Reports: No Symptoms Pulmonary: Reports: No Symptoms Cardiovascular: Reports: No Symptoms Gastrointestinal: Reports: No Symptoms Genitourinary: Reports: No Symptoms Musculoskeletal: Reports: Arm Pain (right arm/shoulder) Skin: Reports: Bruising (right shoulder) Neurological: Reports: No Symptoms (no change from baseline ) Psychiatric: Reports: Anxiety - Patient Data Vitals - Most Recent: Last Vital Signs Temp 98.2 F 10/06/20 14:35 Pulse 82 10/06/20 14:35 Resp 18 10/06/20 14:35 BP 132/72 10/06/20 14:35 Pulse Ox 97 10/06/20 14:35 Orthostatic Blood Pressure [ 122/81 Standing] Orthostatic Blood Pressure [ 128/87 Sitting] Orthostatic Blood Pressure [ 122/74 Supine] Weight - Most Recent: 315 lb 3.189 oz I&O - Last 24 Hours: Intake & Output 10/06/20 10/06/20 10/06/20 06:59 14:59 22:59 Intake Total 1588 240 Output Total 10 595 Balance 1578 -595 240 Med Orders - Current: Current Medications Acetaminophen (Tylenol) 650 mg PO Q4H PRN PRN Reason: Pain (Mild 1-3)/fever Last Admin: 10/05/20 21:52 Dose: 650 mg Documented by: Albuterol (Proventil Neb Soln) 2.5 mg NEB Q4H PRN PRN Reason: Shortness Of Breath/wheezing Alprazolam (Xanax) 0.25 mg PO TID [facility] Last Admin: 10/06/20 14:54 Dose: 0.25 mg Documented by: Aspirin (Aspirin) 81 mg PO DAILY [facility] Last Admin: 10/06/20 09:18 Dose: 81 mg Documented by: Azathioprine (Imuran) 250 mg PO DAILY [facility] Last Admin: 10/06/20 09:18 Dose: 250 mg Documented by: Fluticasone Propionate (Flonase) 0 gm NASBOTH DAILY [facility] Last Admin: 10/06/20 08:56 Dose: 1 spray Documented by: Hydromorphone HCl (Dilaudid) 0.5 mg IVPUSH Q2H PRN PRN Reason: Pain (severe 7-10) Sodium Chloride (Normal Saline) 1,000 mls @ 75 mls/hr IV ASDIRECTED [facility] Last Admin: 10/05/20 17:45 Dose: 75 mls/hr Documented by: Loratadine (Claritin) 10 mg PO DAILY [facility] Last Admin: 10/06/20 09:18 Dose: 10 mg Documented by: Lorazepam (Ativan) 0.5 mg IVPUSH Q4H PRN PRN Reason: Nausea/Vomiting Magnesium Hydroxide (Milk Of Magnesia) 30 ml PO Q12H PRN PRN Reason: Constipation Melatonin (Melatonin) 9 mg PO BEDTIME [facility] Last Admin: 10/05/20 21:52 Dose: 9 mg Documented by: Nicotine (Habitrol) 14 mg TRDERM DAILY [facility] Last Admin: 10/06/20 09:18 Dose: 14 mg Documented by: Ondansetron HCl (Zofran) 4 mg IV Q6H PRN PRN Reason: Nausea/Vomiting Ondansetron HCl (Zofran Odt) 4 mg PO Q6H PRN PRN Reason: Nausea able to take PO Oxycodone HCl (Oxycodone) 5 - 10 mg PO Q4H PRN PRN Reason: Pain Last Admin: 10/06/20 14:54 Dose: 5 mg Documented by: Pantoprazole Sodium (Protonix) 40 mg PO ACBREAKFAST [facility] Last Admin: 10/06/20 08:56 Dose: 40 mg Documented by: Paroxetine HCl (Paxil) 40 mg PO DAILY [facility] Last Admin: 10/06/20 09:19 Dose: 40 mg Documented by: Senna/Docusate Sodium (Senna Plus) 1 tab PO BID PRN PRN Reason: Constipation Simvastatin (Zocor) 20 mg PO BEDTIME [facility] Last Admin: 10/05/20 21:53 Dose: 20 mg Documented by: Discontinued Medications Bupivacaine HCl (Marcaine 0.5%) Confirm Administered Dose 30 ml .ROUTE .STK-MED ONE Stop: 10/05/20 10:00 Bupivacaine HCl (Marcaine 0.5%) Confirm Administered Dose 30 ml .ROUTE .STK-MED ONE Stop: 10/05/20 10:00 Dexamethasone (Decadron) Confirm Administered Dose 4 mg .ROUTE .STK-MED ONE Stop: 10/05/20 09:03 Fentanyl (Sublimaze) Confirm Administered Dose 250 mcg .ROUTE .STK-MED ONE Stop: 10/05/20 09:02 Fentanyl (Sublimaze) Confirm Administered Dose 250 mcg .ROUTE .STK-MED ONE Stop: 10/05/20 11:45 Glycopyrrolate (Robinul) Confirm Administered Dose 1 mg .ROUTE .STK-MED ONE Stop: 10/05/20 09:03 Hydromorphone HCl (Dilaudid) 0.5 mg IVPUSH ONETIME ONE Stop: 10/03/20 21:47 Last Admin: 10/03/20 22:07 Dose: 0.5 mg Documented by: Hydromorphone HCl (Dilaudid) 0.5 mg IVPUSH Q2H PRN PRN Reason: Pain (severe 7-10) Last Admin: 10/04/20 14:35 Dose: 0.5 mg Documented by: Sodium Chloride (Normal Saline) 1,000 mls @ 125 mls/hr IV ASDIRECTED [facility] Last Admin: 10/04/20 09:04 Dose: 125 mls/hr Documented by: Phytonadione 1 mg/ Sodium (Chloride) 50.5 mls @ 100 mls/hr IV ONETIME ONE Stop: 10/04/20 00:10 Last Admin: 10/04/20 00:26 Dose: 100 mls/hr Documented by: Lactated Ringer's (Ringers, Lactated) Confirm Administered Dose 1,000 mls @ as directed .ROUTE .STK-MED ONE Stop: 10/05/20 12:16 Ketorolac Tromethamine (Toradol) 30 mg IM ONETIME ONE Stop: 10/03/20 18:52 Last Admin: 10/03/20 19:48 Dose: 30 mg Documented by: Neostigmine Methylsulfate (Neostigmine) Confirm Administered Dose 5 mg .ROUTE .STK-MED ONE Stop: 10/05/20 09:03 Ondansetron HCl (Zofran) Confirm Administered Dose 4 mg .ROUTE .STK-MED ONE Stop: 10/05/20 09:03 Povidone Iodine (Betadine 10% Soln) Confirm Administered Dose 1 ml .ROUTE .STK- MED ONE Stop: 10/05/20 09:54 Last Admin: 10/05/20 13:28 Dose: 20 ml Documented by: Propofol (Diprivan 20 Ml) Confirm Administered Dose 200 mg .ROUTE .STK-MED ONE Stop: 10/05/20 09:03 Rocuronium [place] (Zemuron) Confirm Administered Dose 50 mg .ROUTE .STK-MED ONE Stop: 10/05/20 09:03 Succinylcholine Chloride (Quelicin) Confirm Administered Dose 200 mg .ROUTE .STK-MED ONE Stop: 10/05/20 09:03 - Exam Wound/Incisions: Dressing Dry and Intact, Drainage (minimal drainage surrounding drain site ) General: Alert, Oriented, Cooperative Skin: Intact Neurological: No New Focal Deficit Psy/Mental Status: Alert, Normal Affect, Anxious Sepsis Event Note - Evaluation Sepsis Screening Result: No Definite Risk - Focused Exam Vital Signs: Vital Signs Temp Pulse Resp BP BP Pulse Ox 10/06/20 14:35 98.2 F 82 18 132/72 97 10/06/20 10:58 97.2 F 79 18 101/64 97 10/06/20 07:00 97.2 F 79 18 104/66 94 L - Problem List & Annotations (1) Closed fracture of proximal end of right humerus SNOMED Code(s): 19237948 Code(s): S42.201A - UNSP FRACTURE OF UPPER END OF RIGHT HUMERUS, INIT Status: Acute Current Visit: Yes Qualifiers: Encounter type: initial encounter Fracture morphology: other fracture Fracture alignment: displaced Qualified Code(s): S42.291A - Other displaced fracture of upper end of right humerus, initial encounter for closed fracture - Problem List Review Problem List Initiated/Reviewed/Updated: Yes - My Orders Last 24 Hours: Active Orders 24 hr Category Date Time Status Regular Diet [DIET] Diet 10/05/20 Dinner Active Medication Orders Acetaminophen (Tylenol) 650 mg PO Q4H PRN PRN Reason: Pain (Mild 1-3)/fever Last Admin: 10/05/20 21:52 Dose: 650 mg Documented by: Admin: 10/05/20 16:43 Dose: 650 mg Documented by: LOUIE Albuterol (Proventil Neb Soln) 2.5 mg NEB Q4H PRN PRN Reason: Shortness Of Breath/wheezing Alprazolam (Xanax) 0.25 mg PO TID [facility] Last Admin: 10/06/20 14:54 Dose: 0.25 mg Documented by: Admin: 10/06/20 09:21 Dose: 0.25 mg Documented by: Admin: 10/05/20 21:52 Dose: 0.25 mg Documented by: Admin: 10/05/20 16:45 Dose: Not Given Documented by: Admin: 10/05/20 12:58 Dose: Not Given Documented by: Admin: 10/04/20 21:07 Dose: 0.25 mg Documented by: Admin: 10/04/20 13:04 Dose: 0.25 mg Documented by: Admin: 10/04/20 09:11 Dose: Not Given Documented by: DUANE Aspirin (Aspirin) 81 mg PO DAILY [facility] Last Admin: 10/06/20 09:18 Dose: 81 mg Documented by: Admin: 10/05/20 16:44 Dose: 81 mg Documented by: Admin: 10/04/20 12:54 Dose: Not Given Documented by: DUANE Azathioprine (Imuran) 250 mg PO DAILY [facility] Last Admin: 10/06/20 09:18 Dose: 250 mg Documented by: Admin: 10/05/20 16:43 Dose: 250 mg Documented by: Admin: 10/04/20 13:05 Dose: 250 mg Documented by: DUANE Fluticasone Propionate (Flonase) 0 gm NASBOTH DAILY [facility] Last Admin: 10/06/20 08:56 Dose: 1 spray Documented by: Admin: 10/05/20 12:58 Dose: Not Given Documented by: Admin: 10/04/20 09:11 Dose: Not Given Documented by: DUANE Hydromorphone HCl (Dilaudid) 0.5 mg IVPUSH Q2H PRN PRN Reason: Pain (severe 7-10) Sodium Chloride (Normal Saline) 1,000 mls @ 75 mls/hr IV ASDIRECTED [facility] Last Admin: 10/05/20 17:45 Dose: 75 mls/hr Documented by: Infusion: 10/05/20 17:45 Dose: 75 mls/hr Documented by: Admin: 10/05/20 06:52 Dose: 75 mls/hr Documented by: Infusion: 10/05/20 06:46 Dose: 75 mls/hr Documented by: Admin: 10/04/20 17:26 Dose: 75 mls/hr Documented by: DUANE Loratadine (Claritin) 10 mg PO DAILY [facility] Last Admin: 10/06/20 09:18 Dose: 10 mg Documented by: Admin: 10/05/20 16:44 Dose: 10 mg Documented by: Admin: 10/04/20 13:04 Dose: 10 mg Documented by: DUANE Lorazepam (Ativan) 0.5 mg IVPUSH Q4H PRN PRN Reason: Nausea/Vomiting Magnesium Hydroxide (Milk Of Magnesia) 30 ml PO Q12H PRN PRN Reason: Constipation Melatonin (Melatonin) 9 mg PO BEDTIME [facility] Admin: 10/05/20 21:52 Dose: 9 mg Documented by: Admin: 10/04/20 21:06 Dose: 9 mg Documented by: MARIAN Nicotine (Habitrol) 14 mg TRDERM DAILY [facility] Admin: 10/06/20 09:18 Dose: 14 mg Documented by: Admin: 10/05/20 16:43 Dose: 14 mg Documented by: Admin: 10/04/20 09:06 Dose: 14 mg Documented by: Admin: 10/04/20 00:53 Dose: 14 mg Documented by: MARIAN Ondansetron HCl (Zofran) 4 mg IV Q6H PRN PRN Reason: Nausea/Vomiting Ondansetron HCl (Zofran Odt) 4 mg PO Q6H PRN PRN Reason: Nausea able to take PO Oxycodone HCl (Oxycodone) 5 - 10 mg PO Q4H PRN PRN Reason: Pain Last Admin: 10/06/20 14:54 Dose: 5 mg Documented by: Admin: 10/05/20 21:53 Dose: 10 mg Documented by: Admin: 10/05/20 16:44 Dose: 10 mg Documented by: Admin: 10/05/20 06:55 Dose: 5 mg Documented by: Admin: 10/05/20 01:58 Dose: 10 mg Documented by: Admin: 10/04/20 21:06 Dose: 10 mg Documented by: Admin: 10/04/20 16:26 Dose: 10 mg Documented by: Admin: 10/04/20 12:02 Dose: 10 mg Documented by: Admin: 10/04/20 07:18 Dose: 10 mg Documented by: Admin: 10/04/20 00:52 Dose: 10 mg Documented by: MARIAN Pantoprazole Sodium (Protonix) 40 mg PO ACBREAKFAST [facility] Last Admin: 10/06/20 08:56 Dose: 40 mg Documented by: Admin: 10/05/20 08:59 Dose: Not Given Documented by: Admin: 10/04/20 13:06 Dose: 40 mg Documented by: DUANE Paroxetine HCl (Paxil) 40 mg PO DAILY [facility] Last Admin: 10/06/20 09:19 Dose: 40 mg Documented by: Admin: 10/05/20 16:44 Dose: 40 mg Documented by: Admin: 10/04/20 13:04 Dose: 40 mg Documented by: DUANE Senna/Docusate Sodium (Senna Plus) 1 tab PO BID PRN PRN Reason: Constipation Simvastatin (Zocor) 20 mg PO BEDTIME [facility] Last Admin: 10/05/20 21:53 Dose: 20 mg Documented by: Admin: 10/04/20 21:06 Dose: 20 mg Documented by: MARIAN - Assessment Assessment (Free Text/Narrative):: Assessment: Patient is a pleasant 55 y/o male, POD#1, s/p right shoulder hemiplasty. Patient tolerated procedure well with no complications. Drain was placed intraoperatively, had minimal output in drain on POD#1. Scant amount of bloody drainage around the drain; drain was then pulled this afternoon. New dressing applied over drain/incision site; incision dry and intact, no drainage or erythema. Shoulder remains in sling today. Patient reports he is regaining feeling in his arm this afternoon, which provoked some anxiety and pain. His prn xanax and prn oxycodone were administered and seemed to help significantly. Patient is eating and tolerating regular diet well at this time. Plan: * Orthopedic provider will perform dressing change tomorrow * Anticipate discharge when placement is available at nursing home facility; per nursing report, it appears this may be as early as tomorrow afternoon
[2020-10-06] MEDS: Sodium Chloride 0.9% 1,000 ML IV SCH (19:42)
[2020-10-06] MEDS: Melatonin 3 MG Tab PO SCH (20:22)
[2020-10-06] MEDS: Simvastatin 20 MG Tab PO SCH (20:22)
[2020-10-07] MEDS: oxyCODONE 5 MG Tab PO PRN ×2 (00:56→09:36)
[2020-10-07] MEDS: Pantoprazole 40 MG Tab.CR PO SCH (07:20)
[2020-10-07] MEDS: Aspirin 81 MG Tab.Chew PO SCH (09:09)
[2020-10-07] MEDS: ALPRAZolam 0.25 MG Tab PO SCH (09:09)
[2020-10-07] MEDS: Loratadine 10 MG Tab PO SCH (09:09)
[2020-10-07] MEDS: Nicotine 14 MG/24 Hr Patch TRDERM SCH (09:09)
[2020-10-07] MEDS: PARoxetine 20 MG Tab PO SCH (09:09)
[2020-10-07] MEDS: Fluticasone Propionate Nasal Spray 16 GM Bottle NASBOTH SCH (09:10)
--- NOTE | 2020-10-07 09:18 | PCM.SURGPN ---
- General Info Date of Service: 10/07/20 Date of Surgery/Procedure: 10/05/20 Post-Op Diagnosis: Right shoulder fracture Functional Status: Reports: Pain Controlled, Tolerating Diet - Review of Systems General: Reports: No Symptoms HEENT: Reports: No Symptoms Pulmonary: Reports: No Symptoms Cardiovascular: Reports: No Symptoms Gastrointestinal: Reports: No Symptoms Genitourinary: Reports: No Symptoms Musculoskeletal: Reports: Arm Pain (right ) Skin: Reports: Bruising (right shoulder ) Neurological: Reports: No Symptoms Psychiatric: Reports: No Symptoms - Patient Data Vitals - Most Recent: Last Vital Signs Temp 97.7 F 10/07/20 07:16 Pulse 82 10/07/20 07:16 Resp 18 10/07/20 07:16 BP 116/76 10/07/20 07:16 Pulse Ox 94 L 10/07/20 07:16 Orthostatic Blood Pressure [ 122/81 Standing] Orthostatic Blood Pressure [ 128/87 Sitting] Orthostatic Blood Pressure [ 122/74 Supine] Weight - Most Recent: 315 lb 3.189 oz I&O - Last 24 Hours: Intake & Output 10/06/20 10/07/20 10/07/20 22:59 06:59 14:59 Intake Total 2055 650 Balance 2055 650 Med Orders - Current: Current Medications Acetaminophen (Tylenol) 650 mg PO Q4H PRN PRN Reason: Pain (Mild 1-3)/fever Last Admin: 10/05/20 21:52 Dose: 650 mg Documented by: Albuterol (Proventil Neb Soln) 2.5 mg NEB Q4H PRN PRN Reason: Shortness Of Breath/wheezing Alprazolam (Xanax) 0.25 mg PO TID [facility] Last Admin: 10/06/20 20:28 Dose: 0.25 mg Documented by: Aspirin (Aspirin) 81 mg PO DAILY [facility] Last Admin: 10/06/20 09:18 Dose: 81 mg Documented by: Azathioprine (Imuran) 250 mg PO DAILY [facility] Last Admin: 10/06/20 09:18 Dose: 250 mg Documented by: Fluticasone Propionate (Flonase) 0 gm NASBOTH DAILY [facility] Last Admin: 10/06/20 08:56 Dose: 1 spray Documented by: Hydromorphone HCl (Dilaudid) 0.5 mg IVPUSH Q2H PRN PRN Reason: Pain (severe 7-10) Sodium Chloride (Normal Saline) 1,000 mls @ 75 mls/hr IV ASDIRECTED [facility] Last Admin: 10/06/20 19:42 Dose: 75 mls/hr Documented by: Loratadine (Claritin) 10 mg PO DAILY [facility] Last Admin: 10/06/20 09:18 Dose: 10 mg Documented by: Lorazepam (Ativan) 0.5 mg IVPUSH Q4H PRN PRN Reason: Nausea/Vomiting Magnesium Hydroxide (Milk Of Magnesia) 30 ml PO Q12H PRN PRN Reason: Constipation Melatonin (Melatonin) 9 mg PO BEDTIME [facility] Last Admin: 10/06/20 20:22 Dose: 9 mg Documented by: Nicotine (Habitrol) 14 mg TRDERM DAILY [facility] Last Admin: 10/06/20 09:18 Dose: 14 mg Documented by: Ondansetron HCl (Zofran) 4 mg IV Q6H PRN PRN Reason: Nausea/Vomiting Ondansetron HCl (Zofran Odt) 4 mg PO Q6H PRN PRN Reason: Nausea able to take PO Oxycodone HCl (Oxycodone) 5 - 10 mg PO Q4H PRN PRN Reason: Pain Last Admin: 10/07/20 00:56 Dose: 10 mg Documented by: Pantoprazole Sodium (Protonix) 40 mg PO ACBREAKFAST [facility] Last Admin: 10/07/20 07:20 Dose: 40 mg Documented by: Paroxetine HCl (Paxil) 40 mg PO DAILY [facility] Last Admin: 10/06/20 09:19 Dose: 40 mg Documented by: Senna/Docusate Sodium (Senna Plus) 1 tab PO BID PRN PRN Reason: Constipation Simvastatin (Zocor) 20 mg PO BEDTIME [facility] Last Admin: 10/06/20 20:22 Dose: 20 mg Documented by: Discontinued Medications Bupivacaine HCl (Marcaine 0.5%) Confirm Administered Dose 30 ml .ROUTE .STK-MED ONE Stop: 10/05/20 10:00 Bupivacaine HCl (Marcaine 0.5%) Confirm Administered Dose 30 ml .ROUTE .STK-MED ONE Stop: 10/05/20 10:00 Dexamethasone (Decadron) Confirm Administered Dose 4 mg .ROUTE .STK-MED ONE Stop: 10/05/20 09:03 Fentanyl (Sublimaze) Confirm Administered Dose 250 mcg .ROUTE .STK-MED ONE Stop: 10/05/20 09:02 Fentanyl (Sublimaze) Confirm Administered Dose 250 mcg .ROUTE .STK-MED ONE Stop: 10/05/20 11:45 Glycopyrrolate (Robinul) Confirm Administered Dose 1 mg .ROUTE .STK-MED ONE Stop: 10/05/20 09:03 Hydromorphone HCl (Dilaudid) 0.5 mg IVPUSH ONETIME ONE Stop: 10/03/20 21:47 Last Admin: 10/03/20 22:07 Dose: 0.5 mg Documented by: Hydromorphone HCl (Dilaudid) 0.5 mg IVPUSH Q2H PRN PRN Reason: Pain (severe 7-10) Last Admin: 10/04/20 14:35 Dose: 0.5 mg Documented by: Sodium Chloride (Normal Saline) 1,000 mls @ 125 mls/hr IV ASDIRECTED [facility] Last Admin: 10/04/20 09:04 Dose: 125 mls/hr Documented by: Phytonadione 1 mg/ Sodium (Chloride) 50.5 mls @ 100 mls/hr IV ONETIME ONE Stop: 10/04/20 00:10 Last Admin: 10/04/20 00:26 Dose: 100 mls/hr Documented by: Lactated Ringer's (Ringers, Lactated) Confirm Administered Dose 1,000 mls @ as directed .ROUTE .STK-MED ONE Stop: 10/05/20 12:16 Ketorolac Tromethamine (Toradol) 30 mg IM ONETIME ONE Stop: 10/03/20 18:52 Last Admin: 10/03/20 19:48 Dose: 30 mg Documented by: Neostigmine Methylsulfate (Neostigmine) Confirm Administered Dose 5 mg .ROUTE .STK-MED ONE Stop: 10/05/20 09:03 Ondansetron HCl (Zofran) Confirm Administered Dose 4 mg .ROUTE .STK-MED ONE Stop: 10/05/20 09:03 Povidone Iodine (Betadine 10% Soln) Confirm Administered Dose 1 ml .ROUTE .STK-MED ONE Stop: 10/05/20 09:54 Last Admin: 10/05/20 13:28 Dose: 20 ml Documented by: Propofol (Diprivan 20 Ml) Confirm Administered Dose 200 mg .ROUTE .STK-MED ONE Stop: 10/05/20 09:03 Rocuronium [place] (Zemuron) Confirm Administered Dose 50 mg .ROUTE .STK-MED ONE Stop: 10/05/20 09:03 Succinylcholine Chloride (Quelicin) Confirm Administered Dose 200 mg .ROUTE .STK-MED ONE Stop: 10/05/20 09:03 - Exam Wound/Incisions: Dressing Dry and Intact, No Drainage General: Alert, Oriented, Cooperative Extremities: Arm Pain (Right), Limited Range of Motion (Right Arm ) Skin: Intact Psy/Mental Status: Alert, Normal Affect, Normal Mood Sepsis Event Note - Evaluation Sepsis Screening Result: No Definite Risk - Focused Exam Vital Signs: Vital Signs Temp Pulse Resp BP BP Pulse Ox 10/07/20 07:16 97.7 F 82 18 116/76 94 L 10/07/20 04:09 97.5 F 86 14 114/72 96 10/06/20 22:47 99.0 F 94 16 120/66 98 - Problem List & Annotations (1) Closed fracture of proximal end of right humerus SNOMED Code(s): 97389121 Code(s): S42.201A - UNSP FRACTURE OF UPPER END OF RIGHT HUMERUS, INIT Status: Acute Current Visit: Yes Qualifiers: Encounter type: initial encounter Fracture morphology: other fracture Fracture alignment: displaced Qualified Code(s): S42.291A - Other displaced fracture of upper end of right humerus, initial encounter for closed fracture - Problem List Review Problem List Initiated/Reviewed/Updated: Yes - My Orders Last 24 Hours: Medication Orders Acetaminophen (Tylenol) 650 mg PO Q4H PRN PRN Reason: Pain (Mild 1-3)/fever Last Admin: 10/05/20 21:52 Dose: 650 mg Documented by: Admin: 10/05/20 16:43 Dose: 650 mg Documented by: LOUIE Albuterol (Proventil Neb Soln) 2.5 mg NEB Q4H PRN PRN Reason: Shortness Of Breath/wheezing Alprazolam (Xanax) 0.25 mg PO TID [facility] Last Admin: 10/06/20 20:28 Dose: 0.25 mg Documented by: Admin: 10/06/20 14:54 Dose: 0.25 mg Documented by: Admin: 10/06/20 09:21 Dose: 0.25 mg Documented by: Admin: 10/05/20 21:52 Dose: 0.25 mg Documented by: Admin: 10/05/20 16:45 Dose: Not Given Documented by: Admin: 10/05/20 12:58 Dose: Not Given Documented by: Admin: 10/04/20 21:07 Dose: 0.25 mg Documented by: Admin: 10/04/20 13:04 Dose: 0.25 mg Documented by: Admin: 10/04/20 09:11 Dose: Not Given Documented by: DUANE Aspirin (Aspirin) 81 mg PO DAILY [facility] Last Admin: 10/06/20 09:18 Dose: 81 mg Documented by: Admin: 10/05/20 16:44 Dose: 81 mg Documented by: Admin: 10/04/20 12:54 Dose: Not Given Documented by: DUANE Azathioprine (Imuran) 250 mg PO DAILY [facility] Admin: 10/06/20 09:18 Dose: 250 mg Documented by: Admin: 10/05/20 16:43 Dose: 250 mg Documented by: Admin: 10/04/20 13:05 Dose: 250 mg Documented by: DUANE Fluticasone Propionate (Flonase) 0 gm NASBOTH DAILY [facility] Admin: 10/06/20 08:56 Dose: 1 spray Documented by: Admin: 10/05/20 12:58 Dose: Not Given Documented by: Admin: 10/04/20 09:11 Dose: Not Given Documented by: DUANE Hydromorphone HCl (Dilaudid) 0.5 mg IVPUSH Q2H PRN PRN Reason: Pain (severe 7-10) Sodium Chloride (Normal Saline) 1,000 mls @ 75 mls/hr IV ASDIRECTED [facility] Admin: 10/06/20 19:42 Dose: 75 mls/hr Documented by: Infusion: 10/06/20 07:05 Dose: 75 mls/hr Documented by: Admin: 10/05/20 17:45 Dose: 75 mls/hr Documented by: Infusion: 10/05/20 17:45 Dose: 75 mls/hr Documented by: Admin: 10/05/20 06:52 Dose: 75 mls/hr Documented by: Infusion: 10/05/20 06:46 Dose: 75 mls/hr Documented by: Admin: 10/04/20 17:26 Dose: 75 mls/hr Documented by: DUANE Loratadine (Claritin) 10 mg PO DAILY [facility] Last Admin: 10/06/20 09:18 Dose: 10 mg Documented by: Admin: 10/05/20 16:44 Dose: 10 mg Documented by: Admin: 10/04/20 13:04 Dose: 10 mg Documented by: DUANE Lorazepam (Ativan) 0.5 mg IVPUSH Q4H PRN PRN Reason: Nausea/Vomiting Magnesium Hydroxide (Milk Of Magnesia) 30 ml PO Q12H PRN PRN Reason: Constipation Melatonin (Melatonin) 9 mg PO BEDTIME [facility] Last Admin: 10/06/20 20:22 Dose: 9 mg Documented by: Admin: 10/05/20 21:52 Dose: 9 mg Documented by: Admin: 10/04/20 21:06 Dose: 9 mg Documented by: MARIAN Nicotine (Habitrol) 14 mg TRDERM DAILY [facility] Last Admin: 10/06/20 09:18 Dose: 14 mg Documented by: Admin: 10/05/20 16:43 Dose: 14 mg Documented by: Admin: 10/04/20 09:06 Dose: 14 mg Documented by: Admin: 10/04/20 00:53 Dose: 14 mg Documented by: MARIAN Ondansetron HCl (Zofran) 4 mg IV Q6H PRN PRN Reason: Nausea/Vomiting Ondansetron HCl (Zofran Odt) 4 mg PO Q6H PRN PRN Reason: Nausea able to take PO Oxycodone HCl (Oxycodone) 5 - 10 mg PO Q4H PRN PRN Reason: Pain Last Admin: 10/07/20 00:56 Dose: 10 mg Documented by: Admin: 10/06/20 20:28 Dose: 5 mg Documented by: Admin: 10/06/20 14:54 Dose: 5 mg Documented by: Admin: 10/05/20 21:53 Dose: 10 mg Documented by: Admin: 10/05/20 16:44 Dose: 10 mg Documented by: Admin: 10/05/20 06:55 Dose: 5 mg Documented by: Admin: 10/05/20 01:58 Dose: 10 mg Documented by: Admin: 10/04/20 21:06 Dose: 10 mg Documented by: Admin: 10/04/20 16:26 Dose: 10 mg Documented by: Admin: 10/04/20 12:02 Dose: 10 mg Documented by: Admin: 10/04/20 07:18 Dose: 10 mg Documented by: Admin: 10/04/20 00:52 Dose: 10 mg Documented by: MARIAN Pantoprazole Sodium (Protonix) 40 mg PO ACBREAKFAST [facility] Admin: 10/07/20 07:20 Dose: 40 mg Documented by: Admin: 10/06/20 08:56 Dose: 40 mg Documented by: Admin: 10/05/20 08:59 Dose: Not Given Documented by: Admin: 10/04/20 13:06 Dose: 40 mg Documented by: DUANE Paroxetine HCl (Paxil) 40 mg PO DAILY [facility] Admin: 10/06/20 09:19 Dose: 40 mg Documented by: Admin: 10/05/20 16:44 Dose: 40 mg Documented by: Admin: 10/04/20 13:04 Dose: 40 mg Documented by: DUANE Senna/Docusate Sodium (Senna Plus) 1 tab PO BID PRN PRN Reason: Constipation Simvastatin (Zocor) 20 mg PO BEDTIME [facility] Admin: 10/06/20 20:22 Dose: 20 mg Documented by: Admin: 10/05/20 21:53 Dose: 20 mg Documented by: Admin: 10/04/20 21:06 Dose: 20 mg Documented by: MARIAN - Assessment Assessment (Free Text/Narrative):: Assessment: Patient is a pleasant 55 y/o male, POD#2, s/p right shoulder h emiarthroplasty. Patient tolerated surgery well without any complications. Pain has been well managed with PO medication. Tolerating regular diet well. Some bloody discharge around the drain on POD#1. Drain was removed on POD#1 and new dressing applied. On POD#1, incision was intact, with no erythema, warmth to touch, or drainage. Sling remained on right upper extremity throughout entirety of stay. Dressing change completed on POD#2; incision intact, with no erythema, warmth to touch, or drainage. Plan: * Anticipate discharge to acute rehab facility this afternoon. * Dressing was changed by orthopedic provider this morning. * No shoulder PT at this time; giving shoulder/hardware time to heal in properly prior to therapy. Okay to perform wrist and elbow ROM. * Patient to wear sling at all times until 2 week follow up appointment with orthopedics. * Follow up with orthopedic clinic on 10/20/20, advised to call sooner if any questions or concerns arise.
[2020-10-07 10:34] VITALS: BP 112/59; PULSE 101
--- NOTE | 2020-10-07 10:55 | PCM.DCSUM1 ---
Discharge Summary - Hospital Course Brief History: Mr. Gar is a 55-year-old gentleman who experienced a syncopal episode on the day of admission resulting in severe pain in his right upper arm secondary to a proximal humerus fracture. - Discharge Data Discharge Date: 10/07/20 Discharge Disposition: DC/Tfer to SNF 03 Condition: Stable - Referral to Home Health Primary Care Physician: Justin Grullon MD - Discharge Diagnosis/Problem(s) (1) Closed fracture of proximal end of right humerus SNOMED Code(s): 76148043 ICD Code: S42.201A - UNSP FRACTURE OF UPPER END OF RIGHT HUMERUS, INIT Status: Acute Current Visit: Yes Qualifiers: Encounter type: initial encounter Fracture morphology: other fracture Fracture alignment: displaced Qualified Code(s): S42.291A - Other displaced fracture of upper end of right humerus, initial encounter for closed fracture (2) S/P ORIF (open reduction internal fixation) fracture SNOMED Code(s): 643189121 ICD Code: Z98.890 - OTHER SPECIFIED POSTPROCEDURAL STATES; Z87.81 - PERSONAL HISTORY OF (HEALED) TRAUMATIC FRACTURE Status: Chronic Current Visit: No (3) Hx of deep venous thrombosis SNOMED Code(s): 510092209 ICD Code: Z86.718 - PERSONAL HISTORY OF OTHER VENOUS THROMBOSIS AND EMBOLISM Status: Chronic Current Visit: No (4) Crohn's disease SNOMED Code(s): 52974558 ICD Code: K50.90 - CROHN'S DISEASE, UNSPECIFIED, WITHOUT COMPLICATIONS Status: Chronic Current Visit: No Problem Details: Medications associated suppress the immune system. 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 OT Reason for Consult: Other (Type Response) Special Instructions: ROM to elbow and wrist, no shoulder external rotation beyond neutral This query below is only for informational purposes and is not editable. Admission Diagnosis/Problem: Fracture of humerus, proximal, right, closed Hospital Course: Mr. Gar presented to the emergency room with right shoulder pain. He reports 2 different times that he has fallen down. He thinks the first time he slipped on the ice and fell down. The second time he collapsed coming out of [facility]. He fell down and landed on his right shoulder. He experienced immediate sharp and severe pain in the right shoulder after the fall. Pain is worse with any sort of movement. He does report that he felt dizzy prior to the second fall. He also had a syncopal episode after standing up in the x-ray department. He reported feeling dizzy and blacking out at that time as well. He had an episode of syncope about 6 years ago that sounded like it was a vasovagal episode. Work-up in the emergency room initially revealed some hypotension which has improved. Labs show mild dehydration. Head CT was unremarkable. X-ray of the right shoulder shows a comminuted proximal right humerus fracture. He was admitted to the hospital and given IV fluids for hydration as well as pain medication as needed. He did show evidence of orthostasis on orthostatic blood pressures and it was felt likely that his lisinopril was contributing to this. Lisinopril was discontinued and will be discontinued at the time of discharge. He had no further episodes of lightheadedness or syncope noted during hospital stay. On the day after admission he was seen and evaluated by Dr. Loweyr, on the day after that surgical repair of his proximal humerus fracture was performed. He did well after surgery with good pain control and will be discharged to the halfway for physical therapy and Occupational Therapy. He is to limit movement of the shoulder but may participate in therapy with flexion and extension of the elbow. Follow-up appointment will be scheduled with Dr. Lowery in 2 weeks. [facility] erwise activity will be as tolerated and he will resume his usual diet. Warfarin was held on admission and INR was reversed, warfarin will be resumed at the time of discharge, usual dose. Follow-up INR will be obtained on October 10. - Patient Instructions Diet: Regular Diet as Tolerated Activity: As Tolerated Other/Special Instructions: Please schedule follow-up INR for October 10. Schedule follow-up appointment with Dr. Lowery in 2 weeks. - Discharge Plan *PRESCRIPTION DRUG MONITORING PROGRAM REVIEWED*: Not Applicable *COPY OF PRESCRIPTION DRUG MONITORING REPORT IN PATIENT SAIRA: Not Applicable Prescriptions/Med Rec: oxyCODONE 5 mg PO Q4H PRN #20 tablet PRN Reason: Pain Home Medications: Home Meds Aspirin [[place] Chewable Aspirin] 81 mg PO DAILY 06/17/13 [History] Calcium Carb/Vitamin D3/Vit K1 [Calcium + D Soft Chewable Tab] 1 each PO TID 06/17/13 [History] InFLIXimab [Remicade] 100 mg IV Q30D 06/17/13 [History] Multivitamin [Multi-Vitamin Daily] 1 tab PO DAILY 06/17/13 [History] Simvastatin 20 mg PO BEDTIME 06/17/13 [History] azaTHIOprine [Azathioprine] 5 tab PO DAILY 06/17/13 [History] ALPRAZolam [Xanax] 0.25 mg PO TID 07/09/19 [History] Albuterol Sulfate 2.5 mg IH Q6HR PRN 07/09/19 [History] Fluticasone Propionate [Flonase] 50 mcg NS DAILY 07/09/19 [History] Loratadine 10 mg PO DAILY 07/09/19 [History] Omeprazole 40 mg PO ACBREAKFAST 07/09/19 [History] PARoxetine [Paxil] 40 mg PO DAILY 07/09/19 [History] Warfarin [Coumadin] 5 mg PO DAILY 07/09/19 [History] Acetaminophen [Tylenol] 1 - 2 tab PO Q4HR 09/17/19 [History] oxyCODONE 5 mg PO Q4H PRN #20 tablet 10/07/20 [Rx] Referrals: Justin Grullon MD [Primary Care Provider] - Wilver Lowery MD [Physician] - 10/20/20 2:15 pm - Discharge Summary/Plan Comment DC Time >30 min.: No - Patient Data Vitals - Most Recent: Last Vital Signs Temp 98.5 F 10/07/20 10:32 Pulse 101 H 10/07/20 10:32 Resp 18 10/07/20 10:32 BP 112/59 L 10/07/20 10:32 Pulse Ox 93 L 10/07/20 10:32 Orthostatic Blood Pressure [ 122/81 Standing] Orthostatic Blood Pressure [ 128/87 Sitting] Orthostatic Blood Pressure [ 122/74 Supine] Weight - Most Recent: 315 lb 3.189 oz I&O - Last 24 hours: Intake & Output 10/06/20 10/07/20 10/07/20 22:59 06:59 14:59 Intake Total 2 650 1383 Balance 2055 650 1383 Lab Results - Last 24 hrs: Laboratory Results - last 24 hr 10/07/20 Range/Units 09:42 PT 10.6 (9.5-12.0) sec INR 0.97 (0.80-1.20) Med Orders - Current: Current Medications Acetaminophen (Tylenol) 650 mg PO Q4H PRN PRN Reason: Pain (Mild 1-3)/fever Last Admin: 10/05/20 21:52 Dose: 650 mg Documented by: Albuterol (Proventil Neb Soln) 2.5 mg NEB Q4H PRN PRN Reason: Shortness Of Breath/wheezing Alprazolam (Xanax) 0.25 mg PO TID [facility] Last Admin: 10/07/20 09:09 Dose: 0.25 mg Documented by: Aspirin (Aspirin) 81 mg PO DAILY [facility] Last Admin: 10/07/20 09:09 Dose: 81 mg Documented by: Azathioprine (Imuran) 250 mg PO DAILY [facility] Last Admin: 10/07/20 09:09 Dose: 250 mg Documented by: Fluticasone Propionate (Flonase) 0 gm NASBOTH DAILY [facility] Last Admin: 10/07/20 09:10 Dose: 1 spray Documented by: Hydromorphone HCl (Dilaudid) 0.5 mg IVPUSH Q2H PRN PRN Reason: Pain (severe 7-10) Sodium Chloride (Normal Saline) 1,000 mls @ 75 mls/hr IV ASDIRECTED [facility] Last Admin: 10/06/20 19:42 Dose: 75 mls/hr Documented by: Loratadine (Claritin) 10 mg PO DAILY [facility] Last Admin: 10/07/20 09:09 Dose: 10 mg Documented by: Lorazepam (Ativan) 0.5 mg IVPUSH Q4H PRN PRN Reason: Nausea/Vomiting Magnesium Hydroxide (Milk Of Magnesia) 30 ml PO Q12H PRN PRN Reason: Constipation Melatonin (Melatonin) 9 mg PO BEDTIME [facility] Last Admin: 10/06/20 20:22 Dose: 9 mg Documented by: Nicotine (Habitrol) 14 mg TRDERM DAILY [facility] Last Admin: 10/07/20 09:09 Dose: 14 mg Documented by: Ondansetron HCl (Zofran) 4 mg IV Q6H PRN PRN Reason: Nausea/Vomiting Ondansetron HCl (Zofran Odt) 4 mg PO Q6H PRN PRN Reason: Nausea able to take PO Oxycodone HCl (Oxycodone) 5 - 10 mg PO Q4H PRN PRN Reason: Pain Last Admin: 10/07/20 09:36 Dose: 10 mg Documented by: Pantoprazole Sodium (Protonix) 40 mg PO ACBREAKFAST [facility] Last Admin: 10/07/20 07:20 Dose: 40 mg Documented by: Paroxetine HCl (Paxil) 40 mg PO DAILY [facility] Last Admin: 10/07/20 09:09 Dose: 40 mg Documented by: Senna/Docusate Sodium (Senna Plus) 1 tab PO BID PRN PRN Reason: Constipation Last Admin: 10/07/20 09:09 Dose: 1 tab Documented by: Simvastatin (Zocor) 20 mg PO BEDTIME [facility] Last Admin: 10/06/20 20:22 Dose: 20 mg Documented by: Discontinued Medications Bupivacaine HCl (Marcaine 0.5%) Confirm Administered Dose 30 ml .ROUTE .STK-MED ONE Stop: 10/05/20 10:00 Bupivacaine HCl (Marcaine 0.5%) Confirm Administered Dose 30 ml .ROUTE .STK-MED ONE Stop: 10/05/20 10:00 Dexamethasone (Decadron) Confirm Administered Dose 4 mg .ROUTE .STK-MED ONE Stop: 10/05/20 09:03 Fentanyl (Sublimaze) Confirm Administered Dose 250 mcg .ROUTE .STK-MED ONE Stop: 10/05/20 09:02 Fentanyl (Sublimaze) Confirm Administered Dose 250 mcg .ROUTE .STK-MED ONE Stop: 10/05/20 11:45 Glycopyrrolate (Robinul) Confirm Administered Dose 1 mg .ROUTE .STK-MED ONE Stop: 10/05/20 09:03 Hydromorphone HCl (Dilaudid) 0.5 mg IVPUSH ONETIME ONE Stop: 10/03/20 21:47 Last Admin: 10/03/20 22:07 Dose: 0.5 mg Documented by: Hydromorphone HCl (Dilaudid) 0.5 mg IVPUSH Q2H PRN PRN Reason: Pain (severe 7-10) Last Admin: 10/04/20 14:35 Dose: 0.5 mg Documented by: Sodium Chloride (Normal Saline) 1,000 mls @ 125 mls/hr IV ASDIRECTED [facility] Last Admin: 10/04/20 09:04 Dose: 125 mls/hr Documented by: Phytonadione 1 mg/ Sodium (Chloride) 50.5 mls @ 100 mls/hr IV ONETIME ONE Stop: 10/04/20 00:10 Last Admin: 10/04/20 00:26 Dose: 100 mls/hr Documented by: Lactated Ringer's (Ringers, Lactated) Confirm Administered Dose 1,000 mls @ as directed .ROUTE .ST-MED ONE Stop: 10/05/20 12:16 Ketorolac Tromethamine (Toradol) 30 mg IM ONETIME ONE Stop: 10/03/20 18:52 Last Admin: 10/03/20 19:48 Dose: 30 mg Documented by: Neostigmine Methylsulfate (Neostigmine) Confirm Administered Dose 5 mg .ROUTE .STK-MED ONE Stop: 10/05/20 09:03 Ondansetron HCl (Zofran) Confirm Administered Dose 4 mg .ROUTE .STK-MED ONE Stop: 10/05/20 09:03 Povidone Iodine (Betadine 10% Soln) Confirm Administered Dose 1 ml .ROUTE .STK- MED ONE Stop: 10/05/20 09:54 Last Admin: 10/05/20 13:28 Dose: 20 ml Documented by: Propofol (Diprivan 20 Ml) Confirm Administered Dose 200 mg .ROUTE .STK-MED ONE Stop: 10/05/20 09:03 Rocuronium [place] (Zemuron) Confirm Administered Dose 50 mg .ROUTE .STK-MED ONE Stop: 10/05/20 09:03 Succinylcholine Chloride (Quelicin) Confirm Administered Dose 200 mg .ROUTE .ST-MED ONE Stop: 10/05/20 09:03 - Exam General: Reports: Alert, Oriented, Cooperative Lungs: Reports: Clear to Auscultation, Normal Respiratory Effort Cardiovascular: Reports: Regular Rate, Regular Rhythm, No Murmurs GI/Abdominal Exam: Soft, Non-Tender, No Organomegaly, No Distention Extremities: Other (Right arm in sling) *Q Meaningful Use (DIS) - VTE *Q VTE Pharmacological Contraindications *Q: Patient Scheduled Surgery
== END 2020-10-07 13:30 | DRG 563 ==
LOC: EDBD → JP.ED 17:25 → JP.MS 22:59 → EDBD 22:59
PROVIDERS: ADMIT Internal Medicine; ATTEND Hospitalist
DX: S42.201A Unspecified fracture of upper end of right humerus, initial encounter for closed fracture (principal); S42.291A Other displaced fracture of upper end of right humerus, initial encounter for closed fracture; W01.0XXA Fall on same level from slipping, tripping and stumbling without subsequent striking against object, initial encounter; I95.9 Hypotension, unspecified; E86.0 Dehydration; W00.0XXA Fall on same level due to ice and snow, initial encounter; Z91.81 History of falling; R29.6 Repeated falls; R55 Syncope and collapse; H54.7 Unspecified visual loss; E78.00 Pure hypercholesterolemia, unspecified; F17.210 Nicotine dependence, cigarettes, uncomplicated; I10 Essential (primary) hypertension; Z86.718 Personal history of other venous thrombosis and embolism; K50.90 Crohn's disease, unspecified, without complications; Z98.890 Other specified postprocedural states; F32.9 Major depressive disorder, single episode, unspecified; Z68.38 Body mass index [BMI] 38.0-38.9, adult; F41.9 Anxiety disorder, unspecified; R62.50 Unspecified lack of expected normal physiological development in childhood; E66.9 Obesity, unspecified; F17.200 Nicotine dependence, unspecified, uncomplicated; Z79.01 Long term (current) use of anticoagulants; Z79.82 Long term (current) use of aspirin; Z79.899 Other long term (current) drug therapy; Z20.822 Contact with and (suspected) exposure to COVID-19
CPT/HCPCS: 36415; 70450; 73020-26-RT; 73020-RT; 73030-RT; 73200-26-RT; 73200-RT; 80048; 80053; 80307; 84484; 85018; 85025; 85027; 85610; 93005; 93010; 96372; 96374; 97110-GO; 97165-GO; 97535-GO; 99285-25; A9270-GY; J0330; J1100; J1170; J1885; J2405; J2704; J2710; J3010; J3430; J3490; J7030; J7120; J7500; U0002

== ENCOUNTER 2020-11-21 12:42 | Inpatient (IN) | payer MEDICARE, MEDICAID ==
[2020-11-21] MEDS ORDERED: Phytonadione 10 MG in Sodium Chloride 0.9% 50 ML IV ONE (12:45)
[2020-11-21] MEDS: Sodium Chloride 0.9% 1,000 ML IV SCH ×2 (13:25→22:20)
--- NOTE | 2020-11-21 16:23 | PCM.HP.2 ---
H&P History of Present Illness - General Date of Service: 11/21/20 Admit Problem/Dx: Admission Diagnosis/Problem Admission Diagnosis/Problem Infection and inflammatory reaction due to internal prosthetic device, implant, and graft Source of Information: Patient, Family, Usp Records History Limitations: Reports: Other - History of Present Illness Initial Comments - Free Text/Narative: Reports noting redness and warmth in anterior aspect of shoulder after PT session on Saturday. No significant increase in pain, no fevers or chills. History of displaced 4 part fracture treated with a hemiarthroplasty approx 6 weeks ago. No history of wound problems or skin irritation post op. WBC was normal om Saturday but ESR was elevated. Seen in clinic today with a warm, red slightly raised area in the center of the incision with surrounding erythema but no warmth in athe rest of the shoulder. Onset of Symptoms: Reports: Other (Saturday 11/18) Location: Reports: Upper Extremity, Right Severity: Mild Associated Symptoms: Reports: No Other Symptoms Right Shoulder Pain Score (Numeric/FACES): 4 - Related Data Allergies/Adverse Reactions: Allergies Allergy/AdvReac Type Severity Reaction Status Date / Time No Known Allergies Allergy Verified 10/03/20 18:02 Home Medications: Home Meds Aspirin [Ashkan Chewable Aspirin] 81 mg PO DAILY 06/17/13 [History] Multivitamin [Multi-Vitamin Daily] 1 tab PO DAILY 06/17/13 [History] Simvastatin 20 mg PO BEDTIME 06/17/13 [History] azaTHIOprine [Azathioprine] 5 tab PO DAILY 06/17/13 [History] ALPRAZolam [Xanax] 0.25 mg PO TID 07/09/19 [History] Fluticasone Propionate [Flonase] 50 mcg NS DAILY 07/09/19 [History] Loratadine 10 mg PO DAILY 07/09/19 [History] Omeprazole 40 mg PO ACBREAKFAST 07/09/19 [History] PARoxetine [Paxil] 40 mg PO DAILY 07/09/19 [History] Warfarin [Coumadin] 7.5 mg PO .M,W,F,SUN 07/09/19 [History] Acetaminophen [Tylenol] 1 - 2 tab PO Q4HR 09/17/19 [History] oxyCODONE 5 mg PO Q4H PRN #20 tablet 10/07/20 [Rx] Nicotine [Nicotine Patch] 1 patch TOP DAILY 10/20/20 [History] Warfarin [Coumadin] 10 mg PO ASDIRECTED 11/21/20 [History] Past Medical History HEENT History: Reports: Impaired Vision Cardiovascular History: Reports: Blood Clots/VTE/DVT, High Cholesterol, Hypertension Respiratory History: Reports: None Gastrointestinal History: Reports: Other (See Below) Other Gastrointestinal History: chrones Genitourinary History: Reports: None Musculoskeletal History: Reports: Fracture Other Musculoskeletal History: L prox humerus Fx. s/p L proximal humeras fixation 07/15/19. Fell out of bed 07/21/19 landing on his L upper arm, states having more pain since then Neurological History: Reports: None Psychiatric History: Reports: None, Anxiety, Depression, Developmental Delay Endocrine/Metabolic History: Reports: Obesity/BMI 30+ Hematologic History: Reports: None Immunologic History: Reports: None Oncologic (Cancer) History: Reports: None Dermatologic History: Reports: None - Infectious Disease History Infectious Disease History: Reports: Chicken Pox - Past Surgical History Head Surgeries/Procedures: Reports: None GI Surgical History: Reports: Colon, Other (See Below) Other GI Surgeries/Procedures: large bowel removed Musculoskeletal Surgical History: Reports: Arthroscopic Knee, Shoulder Replacement, Other (See Below) Other Musculoskeletal Surgeries/Procedures:: ORIF l shoulder Jun 2019. right shoulder olesya 10/05/20 Social & Family History - Family History Family Medical History: No Pertinent Family History - Tobacco Use Tobacco Use Status *Q: Former Tobacco User Used Tobacco, but Quit: Yes Month/Year Tobacco Last Used: UNKNOWN (PATIENT DOES NOT REMEMBER) Tobacco Use Comment: dOESNT REMEMBER WHEN HE QUIT SMOKING. USES NICOTINE PATCH Second Hand Smoke Exposure: No - Caffeine Use Caffeine Use: Reports: Coffee - Recreational Drug Use Recreational Drug Use: No H&P Review of Systems - Review of Systems: Review Of Systems: See Below General: Reports: No Symptoms HEENT: Reports: No Symptoms Pulmonary: Reports: No Symptoms Cardiovascular: Reports: No Symptoms Gastrointestinal: Reports: No Symptoms Genitourinary: Reports: No Symptoms Musculoskeletal: Reports: Shoulder Pain Skin: Reports: Erythema Psychiatric: Reports: No Symptoms Neurological: Reports: No Symptoms Exam - Exam Exam: See Below - Vital Signs Vital Signs: Last Vital Signs Temp 37.1 C 11/21/20 12:52 Pulse 80 11/21/20 12:52 Resp 18 11/21/20 12:52 BP 109/71 11/21/20 12:52 Pulse Ox 94 L 11/21/20 12:52 Weight: 145.6 kg - Exam General: Alert, Oriented, Cooperative HEENT: PERRLA, Conjunctiva Clear, EACs Clear, EOMI, Hearing Intact, Mucosa Moist & [place], Pupils Equal, Pupils Reactive Neck: Supple, Trachea Midline Lungs: Clear to Auscultation, Normal Respiratory Effort Cardiovascular: Regular Rate, Regular Rhythm GI/Abdominal Exam: Normal Bowel Sounds, Soft, Non-Tender, No Organomegaly, No Distention (Male) Exam: Deferred Rectal (Males) Exam: Deferred Back Exam: Normal Inspection, Full Range of Motion Extremities: Limited Range of Motion (mild pain with int/ext rotation at his side), Increased Warmth, Redness (Center of incision with several cm of surrounding erythema) Neurological: Cranial Nerves Intact, Reflexes Equal Bilateral Neuro Extensive - Mental Status: Alert, Oriented x3, Normal Mood/Affect, Memory Intact Neuro Extensive - Motor, Sensory, Reflexes: CN II-XII Intact, Normal Gait, Normal Reflexes Psychiatric: Alert, Normal Affect, Normal Mood - Patient Data Lab Results Last 24 hrs: Laboratory Results - last 24 hr 11/21/20 11/21/20 Range/Units 11:23 11:23 PT 28.0 H (9.5-12.0) sec INR 2.62 H (0.80-1.20) Sodium 140 (140-148) mmol/L Potassium 4.2 (3.6-5.2) mmol/L Chloride 103 (100-108) mmol/L Carbon Dioxide 28 (21-32) mmol/L Anion Gap 8.9 (5.0-14.0) mmol/L BUN 17 (7-18) mg/dL Creatinine 1.2 (0.8-1.3) mg/dL Est Cr Clr Drug Dosing 84.39 mL/min Estimated GFR (MDRD) > 60 (>60) Glucose 122 H (74-106) mg/dL Calcium 9.0 (8.5-10.1) mg/dL Total Bilirubin 0.4 (0.2-1.0) mg/dL AST 14 L (15-37) U/L ALT 21 (12-78) U/L Alkaline Phosphatase 108 (46-116) U/L C-Reactive Protein 1.50 H (0.0-0.3) mg/dL Total Protein 8.3 H (6.4-8.2) g/dL Albumin 3.0 L (3.4-5.0) g/dL Globulin 5.3 H (2.3-3.5) g/dL Albumin/Globulin Ratio 0.6 L (1.2-2.2) Result Diagrams: 11/21/20 11:23 Sepsis Event Note - Evaluation Sepsis Screening Result: No Definite Risk - Focused Exam Vital Signs: Vital Signs Temp Pulse Resp BP Pulse Ox 11/21/20 12:52 37.1 C 80 18 109/71 94 L 11/21/20 11:03 36.9 C 89 107/74 - Problem List (1) Infection/inflammation due to internal orthopedic device/implant/graft SNOMED Code(s): 93912303, 795501813 ICD Code: T84.7XXA - INFECT/INFLM REACT DUE TO OTH INT ORTH PROSTH DEV/GRFT, INIT Status: Acute Current Visit: Yes Qualifiers: Encounter type: initial encounter Qualified Code(s): T84.7XXA - Infection and inflammatory reaction due to other internal orthopedic prosthetic devices, implants and grafts, initial encounter (2) Status post right shoulder hemiarthroplasty SNOMED Code(s): 911645841 ICD Code: Z96.611 - PRESENCE OF RIGHT ARTIFICIAL SHOULDER JOINT Status: Acute Current Visit: No Problem List Initiated/Reviewed/Updated: Yes Orders Last 24hrs: Active Orders 24 hr Category Date Time Status Patient Status [ADT] Routine ADT 11/21/20 12:01 Active Verify Patient Consent Obtain [RC] ASDIRECTED Care 11/21/20 12:06 Active Vital Signs [RC] PER UNIT ROUTINE Care 11/21/20 12:01 Active NPO Now [Nothing per Oral Now Diet] [DIET] Diet 11/21/20 Dinner Active Shoulder 1V Rt [CR] Routine Exams 11/21/20 12:05 Ordered CORONAVIRUS COVID-19 ESTEFANIA [MOLEC] Urgent Lab 11/21/20 14:57 Ordered INR,PT,PROTHROMBIN TIME [COAG] Routine Lab 11/21/20 16:00 Ordered Sodium Chloride 0.9% [Normal Saline] 1,000 ml Med 11/21/20 12:15 Active IV ASDIRECTED Vancomycin 1 gm Med 11/21/20 16:13 Ordered Sodium Chloride 0.9% [Normal Saline] 250 ml IV ONETIME Medication Orders Sodium Chloride (Normal Saline) 1,000 mls @ 100 mls/hr IV ASDIRECTED BALWINDER Last Admin: 11/21/20 13:25 Dose: 100 mls/hr Documented by: LOUIE Vancomycin HCl 1 gm/ Sodium (Chloride) 250 mls @ 150 mls/hr IV ONETIME ONE Stop: 11/21/20 18:39 Assessment/Plan Comment:: IMP: Wound infection right shoulder, probable deep periprosthetic infection 6 weeks out from hemiarthroplasty. On Coumadin therapy. Plan: Admit to correct PT/INR and take to OR for Irrigation and Debridement. Hold on starting antibiotics until cultures obtained. Discussed with Yaw and his mother.
[2020-11-21] MEDS ORDERED: Bupivacaine 0.5% 50 ML MDV ONE (17:07)
[2020-11-21] MEDS ORDERED: Morphine 2 MG/ML SYRINGE IVPUSH PRN (18:36)
[2020-11-21] MEDS ORDERED: Acetaminophen 325 MG Tab PO PRN (18:36)
[2020-11-21] MEDS: Acetaminophen/oxyCODONE 325-5 MG Tab PO PRN (19:23)
[2020-11-21] MEDS: Nozin Nasal Sanitizer NASBOTH SCH (20:28)
[2020-11-21] MEDS: Simvastatin 20 MG Tab PO SCH (20:28)
[2020-11-21] MEDS: ALPRAZolam 0.25 MG Tab PO SCH (20:28)
[2020-11-22] MEDS: Acetaminophen/oxyCODONE 325-5 MG Tab PO PRN ×3 (03:27→14:54)
[2020-11-22] MEDS ORDERED: Vancomycin 1 GM SDV ONE (05:03)
[2020-11-22] MEDS: Vancomycin 2 GM in Sodium Chloride 0.9% 500 ML IV SCH ×2 (05:22→17:49)
[2020-11-22] MEDS: Pantoprazole 40 MG Tab.CR PO SCH (08:37)
[2020-11-22] MEDS: Aspirin 81 MG Tab.Chew PO SCH (08:37)
[2020-11-22] MEDS: Fluticasone Propionate Nasal Spray 16 GM Bottle NAS SCH (08:37)
[2020-11-22] MEDS: Loratadine 10 MG Tab PO SCH (08:37)
[2020-11-22] MEDS: Nicotine 21 MG/24 Hr Patch TOP SCH (08:37)
[2020-11-22] MEDS: PARoxetine 20 MG Tab PO SCH (08:38)
[2020-11-22] MEDS: ALPRAZolam 0.25 MG Tab PO SCH ×3 (08:45→20:37)
[2020-11-22] MEDS ORDERED: Nicotine 21 MG/24 Hr Patch TOP SCH (09:00)
[2020-11-22] MEDS: Nozin Nasal Sanitizer NASBOTH SCH ×2 (09:02→20:34)
[2020-11-22] MEDS: Sodium Chloride 0.9% 1,000 ML IV SCH (10:20)
--- NOTE | 2020-11-22 12:33 | PCM.SURGPN ---
- General Info Date of Service: 11/22/20 Date of Surgery/Procedure: 11/21/20 POD#: 1 Post-Op Diagnosis: Right shoulder periprosthetic infection Functional Status: Reports: Pain Controlled, Tolerating Diet, Ambulating, Urinating - Review of Systems General: Reports: No Symptoms HEENT: Reports: No Symptoms Pulmonary: Reports: No Symptoms Cardiovascular: Reports: No Symptoms Gastrointestinal: Reports: No Symptoms Genitourinary: Reports: No Symptoms Musculoskeletal: Reports: Arm Pain Skin: Reports: No Symptoms Neurological: Reports: No Symptoms Psychiatric: Reports: No Symptoms - Patient Data Vitals - Most Recent: Last Vital Signs Temp 36.4 C 11/22/20 10:43 Pulse 81 11/22/20 10:43 Resp 16 11/22/20 10:43 BP 118/64 11/22/20 10:43 Pulse Ox 95 11/22/20 10:43 Weight - Most Recent: 145.15 kg I&O - Last 24 Hours: Intake & Output 11/21/20 11/22/20 11/22/20 22:59 06:59 14:59 Intake Total 1040 1501 1143 Output Total 25 Balance 1040 1501 1118 Lab Results Last 24 Hrs: Laboratory Results - last 24 hr 11/21/20 11/21/20 11/22/20 Range/Units 14:57 16:27 04:10 WBC 6.9 (4.5-11.0) K/uL RBC 3.55 L (4.30-5.90) M/uL Hgb 11.5 L (12.0-15.0) g/dL Hct 36.6 L (40.0-54.0) % MCV 103 H (80-98) fL MCH 32 H (27-31) pg MCHC 31 L (32-36) % Plt Count 251 (150-400) K/uL Neut % (Auto) 83 H (36-66) % Lymph % (Auto) 10 L (24-44) % [place] % (Auto) 7 H (2-6) % Eos % (Auto) 0 L (2-4) % Baso % (Auto) 0 (0-1) % PT 20.4 H (9.5-12.0) sec INR 1.90 H (0.80-1.20) SARS-CoV-2 RNA (ESTEFANIA) Negative (NEGATIVE) 11/22/20 Range/Units 04:10 WBC (4.5-11.0) K/uL RBC (4.30-5.90) M/uL Hgb (12.0-15.0) g/dL Hct (40.0-54.0) % MCV (80-98) fL MCH (27-31) pg MCHC (32-36) % Plt Count (150-400) K/uL Neut % (Auto) (36-66) % Lymph % (Auto) (24-44) % [place] % (Auto) (2-6) % Eos % (Auto) (2-4) % Baso % (Auto) (0-1) % PT 14.3 H (9.5-12.0) sec INR 1.32 H (0.80-1.20) SARS-CoV-2 RNA (ESTEFANIA) (NEGATIVE) Zac Results Last 24 Hrs: Microbiology 11/21/20 17:55 Gram Stain - Final Shoulder, Right Wound Culture - Preliminary Anaerobic Culture - Preliminary NO GROWTH AFTER 1 DAY 11/21/20 17:52 Gram Stain - Final Shoulder, Right Wound Culture - Preliminary Anaerobic Culture - Preliminary NO GROWTH AFTER 1 DAY Med Orders - Current: Current Medications Acetaminophen (Tylenol) 650 mg PO Q6H PRN PRN Reason: Fever Greater Than 101 Alprazolam (Xanax) 0.25 mg PO TID [facility] Last Admin: 11/22/20 08:45 Dose: 0.25 mg Documented by: Aspirin (Aspirin) 81 mg PO DAILY [facility] Last Admin: 11/22/20 08:37 Dose: 81 mg Documented by: Azathioprine (Imuran) 250 mg PO DAILY [facility] Last Admin: 11/22/20 08:38 Dose: 250 mg Documented by: Bandage/Support Products ( Nasal Dye Tank Tender) 1 applic NASBOTH BID [facility] Stop: 11/28/20 21:01 Last Admin: 11/22/20 09:02 Dose: 1 swab Documented by: Fluticasone Propionate (Flonase) 0 gm MARTELL DAILY [facility] Last Admin: 11/22/20 08:37 Dose: 1 spray Documented by: Sodium Chloride (Normal Saline) 1,000 mls @ 100 mls/hr IV ASDIRECTED [facility] Last Admin: 11/22/20 10:20 Dose: 100 mls/hr Documented by: Vancomycin HCl 2 gm/ Sodium (Chloride) 500 mls @ 250 mls/hr IV Q12H [facility] Last Admin: 11/22/20 05:22 Dose: 250 mls/hr Documented by: Loratadine (Claritin) 10 mg PO DAILY [facility] Last Admin: 11/22/20 08:37 Dose: 10 mg Documented by: Morphine Sulfate (Morphine) 2 mg IVPUSH Q2H PRN PRN Reason: Breakthrough Pain Nicotine (Habitrol) 21 mg TOP DAILY [facility] Last Admin: 11/22/20 08:37 Dose: 21 mg Documented by: Oxycodone/Acetaminophen (Percocet 325-5 Mg) 0 tab PO Q4H PRN PRN Reason: Pain (moderate 4-6) Last Admin: 11/22/20 10:22 Dose: 1 tab Documented by: Pantoprazole Sodium (Protonix) 40 mg PO ACBREAKFAST [facility] Last Admin: 11/22/20 08:37 Dose: 40 mg Documented by: Paroxetine HCl (Paxil) 40 mg PO DAILY [facility] Last Admin: 11/22/20 08:38 Dose: 40 mg Documented by: Simvastatin (Zocor) 20 mg PO BEDTIME [facility] Last Admin: 11/21/20 20:28 Dose: 20 mg Documented by: Discontinued Medications Bupivacaine HCl (Marcaine 0.5%) Confirm Administered Dose 50 ml .ROUTE .STK-MED ONE Stop: 11/21/20 17:08 Last Admin: 11/21/20 18:05 Dose: 50 ml Documented by: Phytonadione 10 mg/ Sodium (Chloride) 51 mls @ 100 mls/hr IV NOW ONE Stop: 11/21/20 13:15 Last Admin: 11/21/20 13:26 Dose: 100 mls/hr Documented by: Vancomycin HCl 1 gm/ Sodium (Chloride) 250 mls @ 150 mls/hr IV ONETIME ONE Stop: 11/21/20 18:39 Last Admin: 11/21/20 17:30 Dose: 150 mls/hr Documented by: Vancomycin HCl 1 gm/ Sodium (Chloride) 250 mls @ 150 mls/hr IV Q12H [facility] Last Admin: 11/22/20 04:59 Dose: Not Given Documented by: Vancomycin HCl (Vancomycin) Confirm Administered Dose 2 gm .ROUTE .STK-MED ONE Stop: 11/22/20 05:04 Last Admin: 11/22/20 05:59 Dose: Not Given Documented by: - Exam Wound/Incisions: Dressing Dry and Intact, Other (drain with decreasig output) General: Alert, Oriented, Cooperative, No Acute Distress HEENT: Pupils Equal, Pupils Reactive, EOMI, Mucous Membr. Moist/[place] Neck: Supple Lungs: Clear to Auscultation, Normal Respiratory Effort Cardiovascular: Regular Rate, Regular Rhythm GI/Abdominal Exam: Normal Bowel Sounds, Soft, Non-Tender, No Distention Extremities: Joint Swelling, Limited Range of Motion, Increased Warmth, Redness Skin: Warm Neurological: No New Focal Deficit Psy/Mental Status: Alert, Normal Affect, Normal Mood Sepsis Event Note - Evaluation Sepsis Screening Result: No Definite Risk - Focused Exam Vital Signs: Vital Signs Temp Pulse Resp BP Pulse Ox 11/22/20 10:43 36.4 C 81 16 118/64 95 11/22/20 07:32 36.0 C L 66 16 105/67 95 11/22/20 03:20 36.5 C 87 16 107/67 95 - Problem List & Annotations (1) Infection/inflammation due to internal orthopedic device/implant/graft SNOMED Code(s): 09151955, 833663577 Code(s): T84.7XXA - INFECT/INFLM REACT DUE TO OTH INT ORTH PROSTH DEV/GRFT, INIT Status: Acute Current Visit: Yes Qualifiers: Encounter type: initial encounter Qualified Code(s): T84.7XXA - Infection and inflammatory reaction due to other internal orthopedic prosthetic devices, implants and grafts, initial encounter (2) Status post right shoulder hemiarthroplasty SNOMED Code(s): 560490316 Code(s): Z96.611 - PRESENCE OF RIGHT ARTIFICIAL SHOULDER JOINT Status: Acute Current Visit: No - Problem List Review Problem List Initiated/Reviewed/Updated: No - My Orders Last 24 Hours: Active Orders 24 hr Category Date Time Status Patient Status [ADT] Routine ADT 11/21/20 12:01 Active Ambulate [RC] QID Care 11/21/20 18:32 Active Antiembolic Devices [RC] .Routine Care 11/21/20 18:36 Active Dietary Supplements [RC] BIDMEALS Care 11/21/20 18:38 Active Intake and Output [RC] QSHIFT Care 11/21/20 18:32 Active Notify Provider Vital Signs [RC] .PRN Care 11/21/20 18:31 Active Oxygen Therapy [RC] .PRN Care 11/21/20 18:32 Active RT Incentive Spirometry [RC] Q1HWA Care 11/21/20 18:32 Active Up to Chair [RC] QID Care 11/21/20 18:32 Active Vital Signs [RC] Q4H Care 11/21/20 18:31 Active Wound Care [RC] Q12H Care 11/21/20 18:32 Active Consult to Case Management/Machine Setup Operator [CONS] Cons 11/21/20 18:34 Active Routine NPO Now [Nothing per Oral Now Diet] [DIET] Diet 11/21/20 Dinner Active Regular Diet [DIET] Diet 11/22/20 Breakfast Active CULTURE ANAEROBIC [RM] Routine Lab 11/21/20 17:52 Results CULTURE ANAEROBIC [RM] Routine Lab 11/21/20 17:55 Results CULTURE WOUND + SMEAR [RM] Routine Lab 11/21/20 17:52 Results CULTURE WOUND + SMEAR [RM] Routine Lab 11/21/20 17:55 Results ALPRAZolam [Xanax] Med 11/21/20 21:00 Active 0.25 mg PO TID Acetaminophen [TylenoL] Med 11/21/20 18:36 Active 650 mg PO Q6H PRN Acetaminophen/oxyCODONE [Percocet 325-5 MG] Med 11/21/20 18:34 Active See Dose Instructions PO Q4H PRN Aspirin Med 11/22/20 09:00 Active 81 mg PO DAILY Fluticasone Propionate [Flonase] Med 11/22/20 09:00 Active 0 gm MARTELL DAILY Loratadine [Claritin] Med 11/22/20 09:00 Active 10 mg PO DAILY Morphine Med 11/21/20 18:36 Active 2 mg IVPUSH Q2H PRN Nicotine [Habitrol] Med 11/22/20 09:00 Active 21 mg TOP DAILY Nozin [ Nasal Dye Tank Tender] Med 11/21/20 21:00 Active 1 applic NASBOTH BID PARoxetine [Paxil] Med 11/22/20 09:00 Active 40 mg PO DAILY Pantoprazole [ProTONIX] Med 11/22/20 07:30 Active 40 mg PO ACBREAKFAST Simvastatin [Zocor] Med 11/21/20 21:00 Active 20 mg PO BEDTIME Sodium Chloride 0.9% [Normal Saline] 1,000 ml Med 11/21/20 12:15 Active IV ASDIRECTED Vancomycin 2 gm Med 11/22/20 06:00 Active Sodium Chloride 0.9% [Normal Saline] 500 ml IV Q12H azaTHIOprine [Imuran] Med 11/22/20 09:00 Active 250 mg PO DAILY DVT/VTE Prophylaxis Reflex [OM.PC] Routine Oth 11/21/20 18:34 Ordered Medication Continuation Instructions [OM.PC] Per Unit Oth 11/21/20 18:32 Ordered Routine Sequential Compression Device [OM.PC] Routine Oth 11/21/20 18:32 Ordered Resuscitation Status Routine Resus Stat 11/21/20 18:31 Ordered Medication Orders Acetaminophen (Tylenol) 650 mg PO Q6H PRN PRN Reason: Fever Greater Than 101 Alprazolam (Xanax) 0.25 mg PO TID [facility] Last Admin: 11/22/20 08:45 Dose: 0.25 mg Documented by: Admin: 11/21/20 20:28 Dose: 0.25 mg Documented by: ESTEPHANIA Aspirin (Aspirin) 81 mg PO DAILY [facility] Last Admin: 11/22/20 08:37 Dose: 81 mg Documented by: HERMINIO Azathioprine (Imuran) 250 mg PO DAILY [facility] Last Admin: 11/22/20 08:38 Dose: 250 mg Documented by: HERMINIO Bandage/Support Products ( Nasal Dye Tank Tender) 1 applic NASBOTH BID [facility] Stop: 11/28/20 21:01 Last Admin: 11/22/20 09:02 Dose: 1 swab Documented by: Admin: 11/21/20 20:28 Dose: Not Given Documented by: ESTEPHANIA Fluticasone Propionate (Flonase) 0 gm MARTELL DAILY [facility] Last Admin: 11/22/20 08:37 Dose: 1 spray Documented by: HERMINIO Sodium Chloride (Normal Saline) 1,000 mls @ 100 mls/hr IV ASDIRECTED [facility] Last Admin: 11/22/20 10:20 Dose: 100 mls/hr Documented by: Infusion: 11/22/20 08:20 Dose: 100 mls/hr Documented by: Admin: 11/21/20 22:20 Dose: 100 mls/hr Documented by: Infusion: 11/21/20 22:20 Dose: 100 mls/hr Documented by: Admin: 11/21/20 13:25 Dose: 100 mls/hr Documented by: LOUIE Vancomycin HCl 2 gm/ Sodium (Chloride) 500 mls @ 250 mls/hr IV Q12H [facility] Last Admin: 11/22/20 05:22 Dose: 250 mls/hr Documented by: CRYSTAL Loratadine (Claritin) 10 mg PO DAILY [facility] Last Admin: 11/22/20 08:37 Dose: 10 mg Documented by: HERMINIO Morphine Sulfate (Morphine) 2 mg IVPUSH Q2H PRN PRN Reason: Breakthrough Pain Nicotine (Habitrol) 21 mg TOP DAILY [facility] Last Admin: 11/22/20 08:37 Dose: 21 mg Documented by: HERMINIO Oxycodone/Acetaminophen (Percocet 325-5 Mg) 0 tab PO Q4H PRN PRN Reason: Pain (moderate 4-6) Last Admin: 11/22/20 10:22 Dose: 1 tab Documented by: Admin: 11/22/20 03:27 Dose: 1 tab Documented by: Admin: 11/21/20 19:23 Dose: 1 tab Documented by: NICOLE Pantoprazole Sodium (Protonix) 40 mg PO ACBREAKFAST [facility] Last Admin: 11/22/20 08:37 Dose: 40 mg Documented by: HERMINIO Paroxetine HCl (Paxil) 40 mg PO DAILY [facility] Last Admin: 11/22/20 08:38 Dose: 40 mg Documented by: HERMINIO Simvastatin (Zocor) 20 mg PO BEDTIME [facility] Last Admin: 11/21/20 20:28 Dose: 20 mg Documented by: ESTEPHANIA - Assessment Assessment (Free Text/Narrative):: S/P I&D right shoulder last night. Tolerated well and he has no complaints today. Dressing is intact and drain is in place. Gram Positive Cocci noted, cultures pending. - Plan Plan (Free Text/Narrative):: Continue Vancomycin until culture results available. Will need mcc IV antibiotic so will get PICC line placed. Anticipate dressing change and pulling drain in AM. Can resume Coumadin after PICC line is in.
--- NOTE | 2020-11-22 14:30 | CR ---
Shoulder 1V Rt portable CLINICAL HISTORY: Status post fracture with I and D FINDINGS: Patient had the previous comminuted proximal right humeral fracture. There is been placement of a humeral prosthesis. Configuration is similar to prior study considering slight changes in angle. IMPRESSION: Previous comminuted proximal humeral fracture with placement of a proximal humeral prosthesis
[2020-11-22] MEDS: Simvastatin 20 MG Tab PO SCH (20:35)
[2020-11-23] MEDS: Vancomycin 2 GM in Sodium Chloride 0.9% 500 ML IV SCH (05:17)
[2020-11-23] MEDS: Nozin Nasal Sanitizer NASBOTH SCH ×2 (08:06→21:36)
[2020-11-23] MEDS: Aspirin 81 MG Tab.Chew PO SCH (08:07)
[2020-11-23] MEDS: Loratadine 10 MG Tab PO SCH (08:07)
[2020-11-23] MEDS: Fluticasone Propionate Nasal Spray 16 GM Bottle NAS SCH (08:07)
[2020-11-23] MEDS: PARoxetine 20 MG Tab PO SCH (08:07)
[2020-11-23] MEDS: Pantoprazole 40 MG Tab.CR PO SCH (08:08)
[2020-11-23] MEDS: Nicotine 21 MG/24 Hr Patch TOP SCH (08:08)
[2020-11-23] MEDS: ALPRAZolam 0.25 MG Tab PO SCH ×3 (08:12→21:37)
[2020-11-23] MEDS: Acetaminophen/oxyCODONE 325-5 MG Tab PO PRN ×3 (11:02→21:36)
--- NOTE | 2020-11-23 12:58 | PCM.SURGPN ---
- General Info Date of Service: 11/23/20 Date of Surgery/Procedure: 11/21/20 POD#: 2 Post-Op Diagnosis: Right shoulder periprosthetic infection Functional Status: Reports: Pain Controlled, Tolerating Diet, Ambulating, Urinating - Review of Systems General: Reports: No Symptoms HEENT: Reports: No Symptoms Pulmonary: Reports: No Symptoms Cardiovascular: Reports: No Symptoms Gastrointestinal: Reports: No Symptoms Genitourinary: Reports: No Symptoms Musculoskeletal: Reports: Joint Pain (right shoulder ) Skin: Reports: Bruising (right shoulder ) Neurological: Reports: No Symptoms (Cognitive impairment per patients basline ) Psychiatric: Reports: No Symptoms - Patient Data Vitals - Most Recent: Last Vital Signs Temp 95.4 F L 11/23/20 11:00 Pulse 75 11/23/20 11:00 Resp 18 11/23/20 11:00 BP 109/66 11/23/20 11:00 Pulse Ox 99 11/23/20 11:00 Weight - Most Recent: 320 lb I&O - Last 24 Hours: Intake & Output 11/22/20 11/23/20 11/23/20 22:59 06:59 14:59 Intake Total 1337 Output Total 22 Balance 1315 Zac Results Last 24 Hrs: Microbiology 11/21/20 17:55 Gram Stain - Final Shoulder, Right Wound Culture - Preliminary Anaerobic Culture - Preliminary NO GROWTH AFTER 2 DAYS 11/21/20 17:52 Gram Stain - Final Shoulder, Right Wound Culture - Preliminary Anaerobic Culture - Preliminary NO GROWTH AFTER 2 DAYS Med Orders - Current: Current Medications Acetaminophen (Tylenol) 650 mg PO Q6H PRN PRN Reason: Fever Greater Than 101 Alprazolam (Xanax) 0.25 mg PO TID [facility] Last Admin: 11/23/20 08:12 Dose: 0.25 mg Documented by: Aspirin (Aspirin) 81 mg PO DAILY [facility] Last Admin: 11/23/20 08:07 Dose: 81 mg Documented by: Azathioprine (Imuran) 250 mg PO DAILY [facility] Last Admin: 11/23/20 08:08 Dose: 250 mg Documented by: Bandage/Support Products ( Nasal Pulp House Supervisor) 1 applic NASBOTH BID [facility] Stop: 11/28/20 21:01 Last Admin: 11/23/20 08:06 Dose: 1 swab Documented by: Fluticasone Propionate (Flonase) 0 gm MARTELL DAILY [facility] Last Admin: 11/23/20 08:07 Dose: 1 spray Documented by: Sodium Chloride (Normal Saline) 1,000 mls @ 100 mls/hr IV ASDIRECTED [facility] Last Admin: 11/22/20 10:20 Dose: 100 mls/hr Documented by: Vancomycin HCl 2 gm/ Sodium (Chloride) 500 mls @ 250 mls/hr IV Q12H [facility] Last Admin: 11/23/20 05:17 Dose: 250 mls/hr Documented by: Loratadine (Claritin) 10 mg PO DAILY [facility] Last Admin: 11/23/20 08:07 Dose: 10 mg Documented by: Morphine Sulfate (Morphine) 2 mg IVPUSH Q2H PRN PRN Reason: Breakthrough Pain Nicotine (Habitrol) 21 mg TOP DAILY [facility] Last Admin: 11/23/20 08:08 Dose: 21 mg Documented by: Oxycodone/Acetaminophen (Percocet 325-5 Mg) 0 tab PO Q4H PRN PRN Reason: Pain (moderate 4-6) Last Admin: 11/23/20 11:02 Dose: 1 tab Documented by: Pantoprazole Sodium (Protonix) 40 mg PO ACBREAKFAST [facility] Last Admin: 11/23/20 08:08 Dose: 40 mg Documented by: Paroxetine HCl (Paxil) 40 mg PO DAILY [facility] Last Admin: 11/23/20 08:07 Dose: 40 mg Documented by: Simvastatin (Zocor) 20 mg PO BEDTIME [facility] Last Admin: 11/22/20 20:35 Dose: 20 mg Documented by: Discontinued Medications Bupivacaine HCl (Marcaine 0.5%) Confirm Administered Dose 50 ml .ROUTE .STK-MED ONE Stop: 11/21/20 17:08 Last Admin: 11/21/20 18:05 Dose: 50 ml Documented by: Phytonadione 10 mg/ Sodium (Chloride) 51 mls @ 100 mls/hr IV NOW ONE Stop: 11/21/20 13:15 Last Admin: 11/21/20 13:26 Dose: 100 mls/hr Documented by: Vancomycin HCl 1 gm/ Sodium (Chloride) 250 mls @ 150 mls/hr IV ONETIME ONE Stop: 11/21/20 18:39 Last Admin: 11/21/20 17:30 Dose: 150 mls/hr Documented by: Vancomycin HCl 1 gm/ Sodium (Chloride) 250 mls @ 150 mls/hr IV Q12H [facility] Last Admin: 11/22/20 04:59 Dose: Not Given Documented by: Vancomycin HCl (Vancomycin) Confirm Administered Dose 2 gm .ROUTE .STK-MED ONE Stop: 11/22/20 05:04 Last Admin: 11/22/20 05:59 Dose: Not Given Documented by: - Exam Wound/Incisions: Healing Well, Dressing Dry and Intact, No Drainage, Erythema Improving General: Alert, Oriented, Cooperative, No Acute Distress Extremities: Arm Pain (right ) Skin: Dry, Intact, Ecchymosis Neurological: No New Focal Deficit Psy/Mental Status: Alert, Normal Affect, Normal Mood Sepsis Event Note - Evaluation Sepsis Screening Result: No Definite Risk - Focused Exam Vital Signs: Vital Signs Temp Pulse Resp BP Pulse Ox 11/23/20 11:00 95.4 F L 75 18 109/66 99 11/23/20 07:57 96.2 F L 75 16 106/71 95 11/23/20 03:03 95.6 F L 74 16 118/76 96 - Problem List & Annotations (1) Infection/inflammation due to internal orthopedic device/implant/graft SNOMED Code(s): 50578606, 411775851 Code(s): T84.7XXA - INFECT/INFLM REACT DUE TO OTH INT ORTH PROSTH DEV/GRFT, INIT Status: Acute Current Visit: Yes Qualifiers: Encounter type: initial encounter Qualified Code(s): T84.7XXA - Infection and inflammatory reaction due to other internal orthopedic prosthetic devices, implants and grafts, initial encounter - Problem List Review Problem List Initiated/Reviewed/Updated: Yes - My Orders Last 24 Hours: Active Orders 24 hr Category Date Time Status Admission Status [Patient Status] [ADT] Routine ADT 11/22/20 12:26 Active Central Line Assessment [RC] QSHIFT Care 11/23/20 08:48 Active PICC Line [Central Line Insert Checklist] [RC] Care 11/23/20 08:47 Active ASDIRECTED CREATININE W/GFR [CHEM] Routine Lab 11/23/20 16:30 Ordered VANCOMYCIN TROUGH [CHEM] Routine Lab 11/23/20 16:30 Ordered Central Venous Line Insertion [OM.PC] Routine Oth 11/23/20 12:00 Ordered Medication Orders Acetaminophen (Tylenol) 650 mg PO Q6H PRN PRN Reason: Fever Greater Than 101 Alprazolam (Xanax) 0.25 mg PO TID [facility] Last Admin: 11/23/20 08:12 Dose: 0.25 mg Documented by: Admin: 11/22/20 20:37 Dose: 0.25 mg Documented by: Admin: 11/22/20 13:12 Dose: 0.25 mg Documented by: Admin: 11/22/20 08:45 Dose: 0.25 mg Documented by: Admin: 11/21/20 20:28 Dose: 0.25 mg Documented by: ESTEPHANIA Aspirin (Aspirin) 81 mg PO DAILY [facility] Last Admin: 11/23/20 08:07 Dose: 81 mg Documented by: Admin: 11/22/20 08:37 Dose: 81 mg Documented by: HERMINIO Azathioprine (Imuran) 250 mg PO DAILY [facility] Admin: 11/23/20 08:08 Dose: 250 mg Documented by: Admin: 11/22/20 08:38 Dose: 250 mg Documented by: HERMINIO Bandage/Support Products ( Nasal Pulp House Supervisor) 1 applic NASBOTH BID [facility] Stop: 11/28/20 21:01 Last Admin: 11/23/20 08:06 Dose: 1 swab Documented by: Admin: 11/22/20 20:34 Dose: 1 swab Documented by: Admin: 11/22/20 09:02 Dose: 1 swab Documented by: Admin: 11/21/20 20:28 Dose: Not Given Documented by: ESTEPHANIA Fluticasone Propionate (Flonase) 0 gm MARTELL DAILY [facility] Last Admin: 11/23/20 08:07 Dose: 1 spray Documented by: Admin: 11/22/20 08:37 Dose: 1 spray Documented by: HERMINIO Sodium Chloride (Normal Saline) 1,000 mls @ 100 mls/hr IV ASDIRECTED [facility] Last Admin: 11/22/20 10:20 Dose: 100 mls/hr Documented by: Infusion: 11/22/20 08:20 Dose: 100 mls/hr Documented by: Admin: 11/21/20 22:20 Dose: 100 mls/hr Documented by: Infusion: 11/21/20 22:20 Dose: 100 mls/hr Documented by: BALWINDEROSTA Admin: 11/21/20 13:25 Dose: 100 mls/hr Documented by: LOUIE Vancomycin HCl 2 gm/ Sodium (Chloride) 500 mls @ 250 mls/hr IV Q12H [facility] Last Admin: 11/23/20 05:17 Dose: 250 mls/hr Documented by: Admin: 11/22/20 17:49 Dose: 250 mls/hr Documented by: Admin: 11/22/20 05:22 Dose: 250 mls/hr Documented by: CRYSTAL Loratadine (Claritin) 10 mg PO DAILY [facility] Last Admin: 11/23/20 08:07 Dose: 10 mg Documented by: Admin: 11/22/20 08:37 Dose: 10 mg Documented by: HERMINIO Morphine Sulfate (Morphine) 2 mg IVPUSH Q2H PRN PRN Reason: Breakthrough Pain Nicotine (Habitrol) 21 mg TOP DAILY [facility] Last Admin: 11/23/20 08:08 Dose: 21 mg Documented by: Admin: 11/22/20 08:37 Dose: 21 mg Documented by: HERMINIO Oxycodone/Acetaminophen (Percocet 325-5 Mg) 0 tab PO Q4H PRN PRN Reason: Pain (moderate 4-6) Last Admin: 11/23/20 11:02 Dose: 1 tab Documented by: Admin: 11/22/20 14:54 Dose: 1 tab Documented by: Admin: 11/22/20 10:22 Dose: 1 tab Documented by: Admin: 11/22/20 03:27 Dose: 1 tab Documented by: Admin: 11/21/20 19:23 Dose: 1 tab Documented by: NICOLE Pantoprazole Sodium (Protonix) 40 mg PO ACBREAKFAST [facility] Last Admin: 11/23/20 08:08 Dose: 40 mg Documented by: Admin: 11/22/20 08:37 Dose: 40 mg Documented by: HERMINIO Paroxetine HCl (Paxil) 40 mg PO DAILY [facility] Last Admin: 11/23/20 08:07 Dose: 40 mg Documented by: Admin: 11/22/20 08:38 Dose: 40 mg Documented by: HERMINIO Simvastatin (Zocor) 20 mg PO BEDTIME [facility] Last Admin: 11/22/20 20:35 Dose: 20 mg Documented by: Admin: 11/21/20 20:28 Dose: 20 mg Documented by: ESTEPHANIA - Assessment Assessment (Free Text/Narrative):: Patient is a pleasant 55 y/o male, s/p I&D of R shoulder, POD#2. Patient tolerated surgery well. Has no complaints today. Mild pain in R shoulder. PICC line to be placed this afternoon, can resume coumadin therapy after PICC line in place. Dressing change by orthopedic provider today; appearance of shoulder wound improving, but there is still ecchymosis and some swelling around incision. Mildly warm to touch. No surrounding erythema, nor active drainage. JOSE Drain continues to have serosanguineous output, ~45 mL today. Will leave drain in place overnight and likely pull tomorrow. Xray of R shoulder from yesterday reviewed; hardware appears well seated. Gram positive cocci noted, awaiting final culture results. Is receiving Vancomycin. Will adjust antibiotic appropriately when sensitivities are back. Plan: * PICC line to be placed this afternoon * Coumadin to be resumed after PICC line is placed * Awaiting final culture results for appropriate antibiotic selection; continue Vancomycin until then * Patient may use R elbow/wrist, limit R shoulder motion * Dressing change performed today by orthopedic provider * Anticipate drain removal tomorrow by orthopedic provider
--- NOTE | 2020-11-23 15:17 | CR ---
CHEST: Portable 11/23/2020 at 2:32 PM CLINICAL HISTORY:PICC line placement COMPARISON:None FINDINGS: Heart size and pulmonary vascular tree are normal. No infiltrates are seen. There is no evidence of pneumothorax. There is a PICC line from the left upper extremity. The tip is in the distal third of the superior vena cava. IMPRESSION: No acute cardio pelvic process PICC line in good position.
[2020-11-23] MEDS ORDERED: Warfarin 5 MG Tab PO ONE (17:00)
[2020-11-23] MEDS: Simvastatin 20 MG Tab PO SCH (21:37)
[2020-11-24] MEDS: Acetaminophen/oxyCODONE 325-5 MG Tab PO PRN ×4 (02:57→21:56)
--- NOTE | 2020-11-24 08:17 | PCM.SURGPN ---
- General Info Date of Service: 11/24/20 Date of Surgery/Procedure: 11/21/20 POD#: 3 Post-Op Diagnosis: R shoulder periprosthetic infection Functional Status: Reports: Pain Controlled, Tolerating Diet, Ambulating, Urinating - Review of Systems General: Reports: No Symptoms HEENT: Reports: No Symptoms Pulmonary: Reports: No Symptoms Cardiovascular: Reports: No Symptoms Gastrointestinal: Reports: No Symptoms Genitourinary: Reports: No Symptoms Musculoskeletal: Reports: Shoulder Pain (right ), Arm Pain Skin: Reports: Bruising Neurological: Reports: No Symptoms Psychiatric: Reports: No Symptoms - Patient Data Vitals - Most Recent: Last Vital Signs Temp 98 F 11/24/20 03:00 Pulse 70 11/24/20 03:00 Resp 18 11/24/20 03:00 BP 111/70 11/24/20 03:00 Pulse Ox 95 11/24/20 03:00 Weight - Most Recent: 320 lb I&O - Last 24 Hours: Intake & Output 11/23/20 11/24/20 11/24/20 22:59 06:59 14:59 Intake Total 3930 Output Total 30 Balance 3900 Lab Results Last 24 Hrs: Laboratory Results - last 24 hr 11/23/20 Range/Units 14:35 Creatinine 1.1 (0.8-1.3) mg/dL Est Cr Clr Drug Dosing 92.06 mL/min Estimated GFR (MDRD) > 60 (>60) Vancomycin Trough 22.5 H (10.0-20.0) ug/mL Zac Results Last 24 Hrs: Microbiology 11/21/20 17:52 Gram Stain - Final Shoulder, Right Wound Culture - Preliminary Anaerobic Culture - Final NO GROWTH AFTER 3 DAYS 11/21/20 17:55 Gram Stain - Final Shoulder, Right Wound Culture - Preliminary Anaerobic Culture - Final NO GROWTH AFTER 3 DAYS Med Orders - Current: Current Medications Acetaminophen (Tylenol) 650 mg PO Q6H PRN PRN Reason: Fever Greater Than 101 Alprazolam (Xanax) 0.25 mg PO TID [facility] Last Admin: 11/23/20 21:37 Dose: 0.25 mg Documented by: Aspirin (Aspirin) 81 mg PO DAILY [facility] Last Admin: 11/23/20 08:07 Dose: 81 mg Documented by: Azathioprine (Imuran) 250 mg PO DAILY [facility] Last Admin: 11/23/20 08:08 Dose: 250 mg Documented by: Bandage/Support Products ( Nasal Forensic Analyst) 1 applic NASBOTH BID [facility] Stop: 11/28/20 21:01 Last Admin: 11/23/20 21:36 Dose: 1 swab Documented by: Fluticasone Propionate (Flonase) 0 gm MARTELL DAILY [facility] Last Admin: 11/23/20 08:07 Dose: 1 spray Documented by: Heparin Sodium (Porcine) (Heparin Lock Flush 100 Units/Ml) 500 units FLUSH ASDIRECTED PRN PRN Reason: Other Last Admin: 11/24/20 00:22 Dose: 100 units Documented by: Vancomycin HCl 1.75 gm/ Sodium (Chloride) 250 mls @ 125 mls/hr IV Q12H [facility] Last Admin: 11/23/20 21:37 Dose: 125 mls/hr Documented by: Loratadine (Claritin) 10 mg PO DAILY [facility] Last Admin: 11/23/20 08:07 Dose: 10 mg Documented by: Morphine Sulfate (Morphine) 2 mg IVPUSH Q2H PRN PRN Reason: Breakthrough Pain Nicotine (Habitrol) 21 mg TOP DAILY [facility] Last Admin: 11/23/20 08:08 Dose: 21 mg Documented by: Oxycodone/Acetaminophen (Percocet 325-5 Mg) 0 tab PO Q4H PRN PRN Reason: Pain (moderate 4-6) Last Admin: 11/24/20 02:57 Dose: 1 tab Documented by: Pantoprazole Sodium (Protonix) 40 mg PO ACBREAKFAST [facility] Last Admin: 11/23/20 08:08 Dose: 40 mg Documented by: Paroxetine HCl (Paxil) 40 mg PO DAILY [facility] Last Admin: 11/23/20 08:07 Dose: 40 mg Documented by: Simvastatin (Zocor) 20 mg PO BEDTIME [facility] Last Admin: 11/23/20 21:37 Dose: 20 mg Documented by: Discontinued Medications Bupivacaine HCl (Marcaine 0.5%) Confirm Administered Dose 50 ml .ROUTE .STK-MED ONE Stop: 11/21/20 17:08 Last Admin: 11/21/20 18:05 Dose: 50 ml Documented by: Sodium Chloride (Normal Saline) 1,000 mls @ 100 mls/hr IV ASDIRECTED [facility] Last Admin: 11/22/20 10:20 Dose: 100 mls/hr Documented by: Phytonadione 10 mg/ Sodium (Chloride) 51 mls @ 100 mls/hr IV NOW ONE Stop: 11/21/20 13:15 Last Admin: 11/21/20 13:26 Dose: 100 mls/hr Documented by: Vancomycin HCl 1 gm/ Sodium (Chloride) 250 mls @ 150 mls/hr IV ONETIME ONE Stop: 11/21/20 18:39 Last Admin: 11/21/20 17:30 Dose: 150 mls/hr Documented by: Vancomycin HCl 1 gm/ Sodium (Chloride) 250 mls @ 150 mls/hr IV Q12H [facility] Last Admin: 11/22/20 04:59 Dose: Not Given Documented by: Vancomycin HCl 2 gm/ Sodium (Chloride) 500 mls @ 250 mls/hr IV Q12H [facility] Last Admin: 11/23/20 05:17 Dose: 250 mls/hr Documented by: Vancomycin HCl (Vancomycin) Confirm Administered Dose 2 gm .ROUTE .STK-MED ONE Stop: 11/22/20 05:04 Last Admin: 11/22/20 05:59 Dose: Not Given Documented by: Warfarin Sodium (Coumadin) 10 mg PO ONETIME ONE Stop: 11/23/20 17:01 Last Admin: 11/23/20 18:00 Dose: 10 mg Documented by: - Exam Wound/Incisions: Dressing Dry and Intact, No Drainage, Erythema Improving General: Alert, Oriented, Cooperative, No Acute Distress Extremities: Arm Pain Skin: Dry, Intact Neurological: No New Focal Deficit Psy/Mental Status: Alert, Normal Affect, Normal Mood Sepsis Event Note - Evaluation Sepsis Screening Result: No Definite Risk - Focused Exam Vital Signs: Vital Signs Temp Temp Pulse Resp BP Pulse Ox 11/24/20 03:00 98 F 70 18 111/70 95 11/23/20 22:07 97.6 F 74 16 137/87 99 - Problem List & Annotations (1) Infection/inflammation due to internal orthopedic device/implant/graft SNOMED Code(s): 78603617, 480739240 Code(s): T84.7XXA - INFECT/INFLM REACT DUE TO OTH INT ORTH PROSTH DEV/GRFT, INIT Status: Acute Current Visit: Yes Qualifiers: Encounter type: initial encounter Qualified Code(s): T84.7XXA - Infection and inflammatory reaction due to other internal orthopedic prosthetic devices, implants and grafts, initial encounter - Problem List Review Problem List Initiated/Reviewed/Updated: Yes - My Orders Last 24 Hours: Active Orders 24 hr Category Date Time Status Central Line Assessment [RC] QSHIFT Care 11/23/20 08:48 Active PICC Line [Central Line Insert Checklist] [RC] Care 11/23/20 08:47 Active ASDIRECTED Heparin Sodium [Heparin Lock Flush 100 Units/ML] Med 11/23/20 19:18 Active 500 units FLUSH ASDIRECTED PRN Vancomycin 1.75 gm Med 11/23/20 22:00 Active Sodium Chloride 0.9% [Normal Saline] 250 ml IV Q12H Central Venous Line Insertion [OM.PC] Routine Oth 11/23/20 12:00 Ordered Medication Orders Acetaminophen (Tylenol) 650 mg PO Q6H PRN PRN Reason: Fever Greater Than 101 Alprazolam (Xanax) 0.25 mg PO TID [facility] Last Admin: 11/23/20 21:37 Dose: 0.25 mg Documented by: Admin: 11/23/20 15:32 Dose: 0.25 mg Documented by: Admin: 11/23/20 08:12 Dose: 0.25 mg Documented by: Admin: 11/22/20 20:37 Dose: 0.25 mg Documented by: Admin: 11/22/20 13:12 Dose: 0.25 mg Documented by: Admin: 11/22/20 08:45 Dose: 0.25 mg Documented by: Admin: 11/21/20 20:28 Dose: 0.25 mg Documented by: ESTEPHANIA Aspirin (Aspirin) 81 mg PO DAILY [facility] Last Admin: 11/23/20 08:07 Dose: 81 mg Documented by: Admin: 11/22/20 08:37 Dose: 81 mg Documented by: HERMINIO Azathioprine (Imuran) 250 mg PO DAILY [facility] Last Admin: 11/23/20 08:08 Dose: 250 mg Documented by: Admin: 11/22/20 08:38 Dose: 250 mg Documented by: HERMINIO Bandage/Support Products ( Nasal Forensic Analyst) 1 applic NASBOTH BID [facility] Stop: 11/28/20 21:01 Last Admin: 11/23/20 21:36 Dose: 1 swab Documented by: Admin: 11/23/20 08:06 Dose: 1 swab Documented by: Admin: 11/22/20 20:34 Dose: 1 swab Documented by: Admin: 11/22/20 09:02 Dose: 1 swab Documented by: Admin: 11/21/20 20:28 Dose: Not Given Documented by: ESTEPHANIA Fluticasone Propionate (Flonase) 0 gm MARTELL DAILY [facility] Last Admin: 11/23/20 08:07 Dose: 1 spray Documented by: Admin: 11/22/20 08:37 Dose: 1 spray Documented by: HERMINIO Heparin Sodium (Porcine) (Heparin Lock Flush 100 Units/Ml) 500 units FLUSH ASDIRECTED PRN PRN Reason: Other Last Admin: 11/24/20 00:22 Dose: 100 units Documented by: LOUIE Vancomycin HCl 1.75 gm/ Sodium (Chloride) 250 mls @ 125 mls/hr IV Q12H [facility] Last Admin: 11/23/20 21:37 Dose: 125 mls/hr Documented by: LOUIE Loratadine (Claritin) 10 mg PO DAILY [facility] Last Admin: 11/23/20 08:07 Dose: 10 mg Documented by: Admin: 11/22/20 08:37 Dose: 10 mg Documented by: HERMINIO Morphine Sulfate (Morphine) 2 mg IVPUSH Q2H PRN PRN Reason: Breakthrough Pain Nicotine (Habitrol) 21 mg TOP DAILY [facility] Last Admin: 11/23/20 08:08 Dose: 21 mg Documented by: Admin: 11/22/20 08:37 Dose: 21 mg Documented by: HERMINIO Oxycodone/Acetaminophen (Percocet 325-5 Mg) 0 tab PO Q4H PRN PRN Reason: Pain (moderate 4-6) Last Admin: 11/24/20 02:57 Dose: 1 tab Documented by: Admin: 11/23/20 21:36 Dose: 1 tab Documented by: Admin: 11/23/20 16:00 Dose: 1 tab Documented by: Admin: 11/23/20 11:02 Dose: 1 tab Documented by: Admin: 11/22/20 14:54 Dose: 1 tab Documented by: Admin: 11/22/20 10:22 Dose: 1 tab Documented by: Admin: 11/22/20 03:27 Dose: 1 tab Documented by: Admin: 11/21/20 19:23 Dose: 1 tab Documented by: NICOLE Pantoprazole Sodium (Protonix) 40 mg PO ACBREAKFAST [facility] Last Admin: 11/23/20 08:08 Dose: 40 mg Documented by: Admin: 11/22/20 08:37 Dose: 40 mg Documented by: HERMINIO Paroxetine HCl (Paxil) 40 mg PO DAILY [facility] Last Admin: 11/23/20 08:07 Dose: 40 mg Documented by: Admin: 11/22/20 08:38 Dose: 40 mg Documented by: HERMINIO Simvastatin (Zocor) 20 mg PO BEDTIME [facility] Last Admin: 11/23/20 21:37 Dose: 20 mg Documented by: Admin: 11/22/20 20:35 Dose: 20 mg Documented by: Admin: 11/21/20 20:28 Dose: 20 mg Documented by: ESTEPHANIA - Assessment Assessment (Free Text/Narrative):: Patient is a pleasant 55 y/o male, s/p R shoulder I&D, POD#3. Patient tolerated surgery well and has been doing well post-operatively. Has no complaints this morning. Patient remains hemodynamically stable. No fevers, chills, fatigue. Stated shoulder pain was a 1/10 this morning. Tolerating regular diet well with no nausea/emesis. JOSE drain was removed this morning. Tolerated drain removal well. Steri strip applied over drain site and new dressing applied to R shoulder. R shoulder remains in sling. PICC line successfully placed yesterday afternoon, Coumadin resumed yesterday evening. Vancomycin Trough level elevated yesterday, dosage lowered to 1.75 gm in. Gram stain noted gram positive cocci, no anaerobic growth by day 3. Awaiting culture sensitivities and any further growth. Exam: Incision intact with surrounding erythema improving and mild ecchymosis. Some warmth to touch around incision. No active drainage. Plan: * Awaiting culture sensitivities and any further growth; requested lab to hold cultures for an additional week to monitor for growth * Will receive another dose of Coumadin this afternoon, re-check PT/INR tomorrow morning * Continue Vancomycin in the hospital for now; [facility] is unable to accommodate dosing this 2x/day. Will need to find placement for patient where this dosing can be done * Keep R shoulder motion limited with sling. Okay to move R elbow and wrist
[2020-11-24] MEDS: Nozin Nasal Sanitizer NASBOTH SCH ×2 (09:40→21:54)
[2020-11-24] MEDS: Pantoprazole 40 MG Tab.CR PO SCH (09:40)
[2020-11-24] MEDS: Fluticasone Propionate Nasal Spray 16 GM Bottle NAS SCH (09:40)
[2020-11-24] MEDS: Nicotine 21 MG/24 Hr Patch TOP SCH (09:40)
[2020-11-24] MEDS: Aspirin 81 MG Tab.Chew PO SCH (09:40)
[2020-11-24] MEDS: Loratadine 10 MG Tab PO SCH (09:40)
[2020-11-24] MEDS: PARoxetine 20 MG Tab PO SCH (09:40)
[2020-11-24] MEDS: ALPRAZolam 0.25 MG Tab PO SCH ×3 (09:47→21:55)
[2020-11-24] MEDS ORDERED: Warfarin 5 MG Tab PO ONE (16:00)
[2020-11-24] MEDS: Simvastatin 20 MG Tab PO SCH (21:55)
[2020-11-25] MEDS: Pantoprazole 40 MG Tab.CR PO SCH (07:38)
[2020-11-25] MEDS: Acetaminophen/oxyCODONE 325-5 MG Tab PO PRN ×2 (07:49→12:44)
--- NOTE | 2020-11-25 09:18 | PCM.SURGPN ---
- General Info Date of Service: 11/25/20 Date of Surgery/Procedure: 11/21/20 POD#: 4 Post-Op Diagnosis: R shoulder periprosthetic infection Functional Status: Reports: Pain Controlled, Tolerating Diet, Ambulating, Urinating - Review of Systems General: Reports: No Symptoms HEENT: Reports: No Symptoms Pulmonary: Reports: No Symptoms Cardiovascular: Reports: No Symptoms Gastrointestinal: Reports: No Symptoms Genitourinary: Reports: No Symptoms Musculoskeletal: Reports: Shoulder Pain (right ), Arm Pain Neurological: Reports: No Symptoms (cognitive impairment per patients basline ) Psychiatric: Reports: No Symptoms - Patient Data Vitals - Most Recent: Last Vital Signs Temp 97.1 F 11/25/20 07:33 Pulse 74 11/25/20 07:33 Resp 16 11/25/20 07:33 BP 119/73 11/25/20 07:33 Pulse Ox 94 L 11/25/20 07:33 Weight - Most Recent: 320 lb I&O - Last 24 Hours: Intake & Output 11/24/20 11/25/20 11/25/20 22:59 06:59 14:59 Intake Total 1290 340 Balance 1290 340 Lab Results Last 24 Hrs: Laboratory Results - last 24 hr 11/25/20 Range/Units 04:25 PT 11.8 (9.5-12.0) sec INR 1.08 (0.80-1.20) Zac Results Last 24 Hrs: Microbiology 11/21/20 17:52 Gram Stain - Final Shoulder, Right Wound Culture - Preliminary Anaerobic Culture - Final NO GROWTH AFTER 3 DAYS Med Orders - Current: Current Medications Acetaminophen (Tylenol) 650 mg PO Q6H PRN PRN Reason: Fever Greater Than 101 Alprazolam (Xanax) 0.25 mg PO TID [facility] Last Admin: 11/24/20 21:55 Dose: 0.25 mg Documented by: Aspirin (Aspirin) 81 mg PO DAILY [facility] Last Admin: 11/24/20 09:40 Dose: 81 mg Documented by: Azathioprine (Imuran) 250 mg PO DAILY [facility] Last Admin: 11/24/20 09:41 Dose: 250 mg Documented by: Bandage/Support Products ( Nasal Oil Expeller Operator) 1 applic NASBOTH BID [facility] Stop: 11/28/20 21:01 Last Admin: 11/24/20 21:54 Dose: 1 applic Documented by: Fluticasone Propionate (Flonase) 0 gm MARTELL DAILY [facility] Last Admin: 11/24/20 09:40 Dose: 1 spray Documented by: Heparin Sodium (Porcine) (Heparin Lock Flush 100 Units/Ml) 500 units FLUSH ASDIRECTED PRN PRN Reason: Other Last Admin: 11/24/20 00:22 Dose: 100 units Documented by: Vancomycin HCl 1.75 gm/ Sodium (Chloride) 250 mls @ 125 mls/hr IV Q12H [facility] Last Admin: 11/24/20 21:45 Dose: 125 mls/hr Documented by: Loratadine (Claritin) 10 mg PO DAILY [facility] Last Admin: 11/24/20 09:40 Dose: 10 mg Documented by: Morphine Sulfate (Morphine) 2 mg IVPUSH Q2H PRN PRN Reason: Breakthrough Pain Nicotine (Habitrol) 21 mg TOP DAILY [facility] Last Admin: 11/24/20 09:40 Dose: 21 mg Documented by: Oxycodone/Acetaminophen (Percocet 325-5 Mg) 0 tab PO Q4H PRN PRN Reason: Pain (moderate 4-6) Last Admin: 11/25/20 07:49 Dose: 1 tab Documented by: Pantoprazole Sodium (Protonix) 40 mg PO ACBREAKFAST [facility] Last Admin: 11/25/20 07:38 Dose: 40 mg Documented by: Paroxetine HCl (Paxil) 40 mg PO DAILY [facility] Last Admin: 11/24/20 09:40 Dose: 40 mg Documented by: Simvastatin (Zocor) 20 mg PO BEDTIME [facility] Last Admin: 11/24/20 21:55 Dose: 20 mg Documented by: Warfarin Sodium (Coumadin) 10 mg PO ONETIME ONE Stop: 11/25/20 16:01 Discontinued Medications Bupivacaine HCl (Marcaine 0.5%) Confirm Administered Dose 50 ml .ROUTE .STK-MED ONE Stop: 11/21/20 17:08 Last Admin: 11/21/20 18:05 Dose: 50 ml Documented by: Sodium Chloride (Normal Saline) 1,000 mls @ 100 mls/hr IV ASDIRECTED [facility] Last Admin: 11/22/20 10:20 Dose: 100 mls/hr Documented by: Phytonadione 10 mg/ Sodium (Chloride) 51 mls @ 100 mls/hr IV NOW ONE Stop: 11/21/20 13:15 Last Admin: 11/21/20 13:26 Dose: 100 mls/hr Documented by: Vancomycin HCl 1 gm/ Sodium (Chloride) 250 mls @ 150 mls/hr IV ONETIME ONE Stop: 11/21/20 18:39 Last Admin: 11/21/20 17:30 Dose: 150 mls/hr Documented by: Vancomycin HCl 1 gm/ Sodium (Chloride) 250 mls @ 150 mls/hr IV Q12H [facility] Last Admin: 11/22/20 04:59 Dose: Not Given Documented by: Vancomycin HCl 2 gm/ Sodium (Chloride) 500 mls @ 250 mls/hr IV Q12H [facility] Last Admin: 11/23/20 05:17 Dose: 250 mls/hr Documented by: Vancomycin HCl (Vancomycin) Confirm Administered Dose 2 gm .ROUTE .STK-MED ONE Stop: 11/22/20 05:04 Last Admin: 11/22/20 05:59 Dose: Not Given Documented by: Warfarin Sodium (Coumadin) 10 mg PO ONETIME ONE Stop: 11/23/20 17:01 Last Admin: 11/23/20 18:00 Dose: 10 mg Documented by: Warfarin Sodium (Coumadin) 10 mg PO ONETIME ONE Stop: 11/24/20 16:01 Last Admin: 11/24/20 15:17 Dose: 10 mg Documented by: - Exam Wound/Incisions: Dressing Dry and Intact, No Drainage General: Alert, Oriented, Cooperative, No Acute Distress Extremities: Arm Pain (right ) Skin: Warm, Dry, Intact Neurological: No New Focal Deficit Psy/Mental Status: Alert, Normal Affect, Normal Mood Sepsis Event Note - Evaluation Sepsis Screening Result: No Definite Risk - Focused Exam Vital Signs: Vital Signs Temp Pulse Resp BP Pulse Ox 11/25/20 07:33 97.1 F 74 16 119/73 94 L 11/25/20 04:00 96.8 F L 71 18 117/70 96 11/24/20 22:33 97.4 F 79 16 124/70 95 - Problem List & Annotations (1) Infection/inflammation due to internal orthopedic device/implant/graft SNOMED Code(s): 14519684, 903833200 Code(s): T84.7XXA - INFECT/INFLM REACT DUE TO OTH INT ORTH PROSTH DEV/GRFT, INIT Status: Acute Current Visit: Yes Qualifiers: Encounter type: initial encounter Qualified Code(s): T84.7XXA - Infection and inflammatory reaction due to other internal orthopedic prosthetic devices, implants and grafts, initial encounter - Problem List Review Problem List Initiated/Reviewed/Updated: Yes - My Orders Last 24 Hours: Active Orders 24 hr Category Date Time Status INR,PT,PROTHROMBIN TIME [COAG] Routine Lab 11/27/20 05:00 Ordered Warfarin [Coumadin] Med 11/25/20 16:00 Once 10 mg PO ONETIME ONE Medication Orders Acetaminophen (Tylenol) 650 mg PO Q6H PRN PRN Reason: Fever Greater Than 101 Alprazolam (Xanax) 0.25 mg PO TID [facility] Admin: 11/24/20 21:55 Dose: 0.25 mg Documented by: Admin: 11/24/20 14:03 Dose: 0.25 mg Documented by: Admin: 11/24/20 09:47 Dose: 0.25 mg Documented by: Admin: 11/23/20 21:37 Dose: 0.25 mg Documented by: Admin: 11/23/20 15:32 Dose: 0.25 mg Documented by: Admin: 11/23/20 08:12 Dose: 0.25 mg Documented by: Admin: 11/22/20 20:37 Dose: 0.25 mg Documented by: Admin: 11/22/20 13:12 Dose: 0.25 mg Documented by: Admin: 11/22/20 08:45 Dose: 0.25 mg Documented by: Admin: 11/21/20 20:28 Dose: 0.25 mg Documented by: ESTEPHANIA Aspirin (Aspirin) 81 mg PO DAILY [facility] Admin: 11/24/20 09:40 Dose: 81 mg Documented by: Admin: 11/23/20 08:07 Dose: 81 mg Documented by: Admin: 11/22/20 08:37 Dose: 81 mg Documented by: HERMINIO Azathioprine (Imuran) 250 mg PO DAILY [facility] Admin: 11/24/20 09:41 Dose: 250 mg Documented by: Admin: 11/23/20 08:08 Dose: 250 mg Documented by: Admin: 11/22/20 08:38 Dose: 250 mg Documented by: HERMINIO Bandage/Support Products ( Nasal Oil Expeller Operator) 1 applic NASBOTH BID [facility] Stop: 11/28/20 21:01 Last Admin: 11/24/20 21:54 Dose: 1 applic Documented by: Admin: 11/24/20 09:40 Dose: 1 swab Documented by: Admin: 11/23/20 21:36 Dose: 1 swab Documented by: Admin: 11/23/20 08:06 Dose: 1 swab Documented by: Admin: 11/22/20 20:34 Dose: 1 swab Documented by: Admin: 11/22/20 09:02 Dose: 1 swab Documented by: Admin: 11/21/20 20:28 Dose: Not Given Documented by: ESTEPHANIA Fluticasone Propionate (Flonase) 0 gm MARTELL DAILY [facility] Last Admin: 11/24/20 09:40 Dose: 1 spray Documented by: Admin: 11/23/20 08:07 Dose: 1 spray Documented by: Admin: 11/22/20 08:37 Dose: 1 spray Documented by: HERMINIO Heparin Sodium (Porcine) (Heparin Lock Flush 100 Units/Ml) 500 units FLUSH ASDIRECTED PRN PRN Reason: Other Last Admin: 11/24/20 00:22 Dose: 100 units Documented by: LOUIE Vancomycin HCl 1.75 gm/ Sodium (Chloride) 250 mls @ 125 mls/hr IV Q12H [facility] Last Admin: 11/24/20 21:45 Dose: 125 mls/hr Documented by: Admin: 11/24/20 09:47 Dose: 125 mls/hr Documented by: Admin: 11/23/20 21:37 Dose: 125 mls/hr Documented by: LOUIE Loratadine (Claritin) 10 mg PO DAILY [facility] Last Admin: 11/24/20 09:40 Dose: 10 mg Documented by: Admin: 11/23/20 08:07 Dose: 10 mg Documented by: Admin: 11/22/20 08:37 Dose: 10 mg Documented by: HERMINIO Morphine Sulfate (Morphine) 2 mg IVPUSH Q2H PRN PRN Reason: Breakthrough Pain Nicotine (Habitrol) 21 mg TOP DAILY [facility] Last Admin: 11/24/20 09:40 Dose: 21 mg Documented by: Admin: 11/23/20 08:08 Dose: 21 mg Documented by: Admin: 11/22/20 08:37 Dose: 21 mg Documented by: HERMINIO Oxycodone/Acetaminophen (Percocet 325-5 Mg) 0 tab PO Q4H PRN PRN Reason: Pain (moderate 4-6) Last Admin: 11/25/20 07:49 Dose: 1 tab Documented by: NICHELLE Sierraigned by: EDGAR Admin: 11/24/20 21:56 Dose: 1 tab Documented by: Admin: 11/24/20 15:17 Dose: 1 tab Documented by: Admin: 11/24/20 09:46 Dose: 1 tab Documented by: Admin: 11/24/20 02:57 Dose: 1 tab Documented by: Admin: 11/23/20 21:36 Dose: 1 tab Documented by: Admin: 11/23/20 16:00 Dose: 1 tab Documented by: Admin: 11/23/20 11:02 Dose: 1 tab Documented by: Admin: 11/22/20 14:54 Dose: 1 tab Documented by: Admin: 11/22/20 10:22 Dose: 1 tab Documented by: Admin: 11/22/20 03:27 Dose: 1 tab Documented by: Admin: 11/21/20 19:23 Dose: 1 tab Documented by: NICOLE Pantoprazole Sodium (Protonix) 40 mg PO ACBREAKFAST [facility] Last Admin: 11/25/20 07:38 Dose: 40 mg Documented by: Admin: 11/24/20 09:40 Dose: 40 mg Documented by: Admin: 11/23/20 08:08 Dose: 40 mg Documented by: Admin: 11/22/20 08:37 Dose: 40 mg Documented by: HERMINIO Paroxetine HCl (Paxil) 40 mg PO DAILY [facility] Admin: 11/24/20 09:40 Dose: 40 mg Documented by: Admin: 11/23/20 08:07 Dose: 40 mg Documented by: Admin: 11/22/20 08:38 Dose: 40 mg Documented by: HERMINIO Simvastatin (Zocor) 20 mg PO BEDTIME [facility] Admin: 11/24/20 21:55 Dose: 20 mg Documented by: Admin: 11/23/20 21:37 Dose: 20 mg Documented by: Admin: 11/22/20 20:35 Dose: 20 mg Documented by: Admin: 11/21/20 20:28 Dose: 20 mg Documented by: ESTEPHANIA Warfarin Sodium (Coumadin) 10 mg PO ONETIME ONE Stop: 11/25/20 16:01 - Assessment Assessment (Free Text/Narrative):: Assessment: Patient is a pleasant 55 y/o male, s/p R shoulder I&D, POD#4. Tole rated surgery well and has been doing well post-operatively. No complaints today. Patient remains hemodynamically stable. No fevers, chills, nor fatigue. Stated shoulder pain was a 2/10 this morning. Has been tolerating regular diet well with no nausea/emesis. Awaiting culture sensitivities and any further growth. Remains on Vancomycin at this time. [facility] unable to administer Vancomycin or BID dosing, so patient remains in hospital until placement can be found that accommodates this dosing. PICC line was placed on POD#2. Resumed Coumadin therapy on POD#2 after PICC placement. Dressing change performed on POD#2. JOSE Drain pulled on POD#3. Exam: R shoulder dressing dry & intact. Minimal dried drainage where JOSE drain was pulled on POD#3. Mild warmth to touch of R shoulder. R UE with mild edema when compared to L UE. Plan: * Awaiting culture sensitivities and any further growth; lab is aware to hold cultures for an additional week (through 11/30/20). Will remain on Vancomycin until sensitivities return. * PT/INR WNL this morning; will receive 10 mg Coumadin this afternoon. PT/INR recheck ordered for 11/27/20. * Continue AROM of R elbow and wrist, limit R shoulder motion. * landscape architect and planner working on placement that will accommodate Vancomycin dosing and trough monitoring.
[2020-11-25] MEDS: Fluticasone Propionate Nasal Spray 16 GM Bottle NAS SCH (09:22)
[2020-11-25] MEDS: Nozin Nasal Sanitizer NASBOTH SCH ×2 (09:22→21:22)
[2020-11-25] MEDS: Aspirin 81 MG Tab.Chew PO SCH (09:24)
[2020-11-25] MEDS: Nicotine 21 MG/24 Hr Patch TOP SCH (09:25)
[2020-11-25] MEDS: Loratadine 10 MG Tab PO SCH (09:25)
[2020-11-25] MEDS: PARoxetine 20 MG Tab PO SCH (09:26)
[2020-11-25] MEDS: ALPRAZolam 0.25 MG Tab PO SCH ×3 (09:34→21:22)
[2020-11-25] MEDS ORDERED: Warfarin 5 MG Tab PO ONE (16:00)
[2020-11-25] MEDS: Simvastatin 20 MG Tab PO SCH (21:22)
[2020-11-26] MEDS: Acetaminophen/oxyCODONE 325-5 MG Tab PO PRN ×3 (00:37→21:45)
[2020-11-26] MEDS: Pantoprazole 40 MG Tab.CR PO SCH (07:47)
[2020-11-26] MEDS: Nozin Nasal Sanitizer NASBOTH SCH ×2 (09:11→21:34)
[2020-11-26] MEDS: Aspirin 81 MG Tab.Chew PO SCH (09:12)
[2020-11-26] MEDS: Fluticasone Propionate Nasal Spray 16 GM Bottle NAS SCH (09:12)
[2020-11-26] MEDS: Loratadine 10 MG Tab PO SCH (09:13)
[2020-11-26] MEDS: Nicotine 21 MG/24 Hr Patch TOP SCH (09:14)
[2020-11-26] MEDS: PARoxetine 20 MG Tab PO SCH (09:14)
--- NOTE | 2020-11-26 09:17 | PCM.SURGPN ---
- General Info Date of Service: 11/26/20 Date of Surgery/Procedure: 11/21/20 POD#: 5 Post-Op Diagnosis: periprosthetic R shoulder infection Functional Status: Reports: Pain Controlled, Tolerating Diet, Ambulating, Urinating - Review of Systems General: Reports: No Symptoms HEENT: Reports: No Symptoms Pulmonary: Reports: No Symptoms Cardiovascular: Reports: No Symptoms Gastrointestinal: Reports: No Symptoms Genitourinary: Reports: No Symptoms Musculoskeletal: Reports: Shoulder Pain (right ), Joint Swelling (R UE ) Skin: Reports: No Symptoms Neurological: Reports: No Symptoms Psychiatric: Reports: No Symptoms - Patient Data Vitals - Most Recent: Last Vital Signs Temp 97.1 F 11/26/20 07:32 Pulse 66 11/26/20 07:32 Resp 16 11/26/20 07:32 BP 125/80 11/26/20 07:32 Pulse Ox 97 11/26/20 07:32 Weight - Most Recent: 320 lb I&O - Last 24 Hours: Intake & Output 11/25/20 11/26/20 11/26/20 22:59 06:59 14:59 Intake Total 1210 Output Total 200 950 800 Balance 1010 -950 -800 Lab Results Last 24 Hrs: Laboratory Results - last 24 hr 11/25/20 Range/Units 09:44 Creatinine 1.1 (0.8-1.3) mg/dL Est Cr Clr Drug Dosing 92.06 mL/min Estimated GFR (MDRD) > 60 (>60) Med Orders - Current: Current Medications Acetaminophen (Tylenol) 650 mg PO Q6H PRN PRN Reason: Fever Greater Than 101 Alprazolam (Xanax) 0.25 mg PO TID [facility] Last Admin: 11/25/20 21:22 Dose: 0.25 mg Documented by: Aspirin (Aspirin) 81 mg PO DAILY [facility] Last Admin: 11/25/20 09:24 Dose: 81 mg Documented by: Azathioprine (Imuran) 250 mg PO DAILY [facility] Last Admin: 11/25/20 09:27 Dose: 250 mg Documented by: Bandage/Support Products ( Nasal [employer] Manager) 1 applic NASBOTH BID [facility] Stop: 11/28/20 21:01 Last Admin: 11/25/20 21:22 Dose: 1 applic Documented by: Fluticasone Propionate (Flonase) 0 gm MARTELL DAILY [facility] Last Admin: 11/25/20 09:22 Dose: 1 spray Documented by: Heparin Sodium (Porcine) (Heparin Lock Flush 100 Units/Ml) 500 units FLUSH ASDIRECTED PRN PRN Reason: Other Last Admin: 11/24/20 00:22 Dose: 100 units Documented by: Vancomycin HCl 1.75 gm/ Sodium (Chloride) 250 mls @ 125 mls/hr IV Q12H [facility] Last Admin: 11/25/20 21:25 Dose: 125 mls/hr Documented by: Loratadine (Claritin) 10 mg PO DAILY [facility] Last Admin: 11/25/20 09:25 Dose: 10 mg Documented by: Morphine Sulfate (Morphine) 2 mg IVPUSH Q2H PRN PRN Reason: Breakthrough Pain Nicotine (Habitrol) 21 mg TOP DAILY [facility] Last Admin: 11/25/20 09:25 Dose: 21 mg Documented by: Oxycodone/Acetaminophen (Percocet 325-5 Mg) 0 tab PO Q4H PRN PRN Reason: Pain (moderate 4-6) Last Admin: 11/26/20 00:37 Dose: 1 tab Documented by: Pantoprazole Sodium (Protonix) 40 mg PO ACBREAKFAST [facility] Last Admin: 11/26/20 07:47 Dose: 40 mg Documented by: Paroxetine HCl (Paxil) 40 mg PO DAILY [facility] Last Admin: 11/25/20 09:26 Dose: 40 mg Documented by: Simvastatin (Zocor) 20 mg PO BEDTIME [facility] Last Admin: 11/25/20 21:22 Dose: 20 mg Documented by: Warfarin Sodium (Coumadin) 10 mg PO ONETIME ONE Stop: 11/26/20 16:01 Discontinued Medications Bupivacaine HCl (Marcaine 0.5%) Confirm Administered Dose 50 ml .ROUTE .STK-MED ONE Stop: 11/21/20 17:08 Last Admin: 11/21/20 18:05 Dose: 50 ml Documented by: Sodium Chloride (Normal Saline) 1,000 mls @ 100 mls/hr IV ASDIRECTED [facility] Last Admin: 11/22/20 10:20 Dose: 100 mls/hr Documented by: Phytonadione 10 mg/ Sodium (Chloride) 51 mls @ 100 mls/hr IV NOW ONE Stop: 11/21/20 13:15 Last Admin: 11/21/20 13:26 Dose: 100 mls/hr Documented by: Vancomycin HCl 1 gm/ Sodium (Chloride) 250 mls @ 150 mls/hr IV ONETIME ONE Stop: 11/21/20 18:39 Last Admin: 11/21/20 17:30 Dose: 150 mls/hr Documented by: Vancomycin HCl 1 gm/ Sodium (Chloride) 250 mls @ 150 mls/hr IV Q12H [facility] Last Admin: 11/22/20 04:59 Dose: Not Given Documented by: Vancomycin HCl 2 gm/ Sodium (Chloride) 500 mls @ 250 mls/hr IV Q12H [facility] Last Admin: 11/23/20 05:17 Dose: 250 mls/hr Documented by: Vancomycin HCl (Vancomycin) Confirm Administered Dose 2 gm .ROUTE .STK-MED ONE Stop: 11/22/20 05:04 Last Admin: 11/22/20 05:59 Dose: Not Given Documented by: Warfarin Sodium (Coumadin) 10 mg PO ONETIME ONE Stop: 11/23/20 17:01 Last Admin: 11/23/20 18:00 Dose: 10 mg Documented by: Warfarin Sodium (Coumadin) 10 mg PO ONETIME ONE Stop: 11/24/20 16:01 Last Admin: 11/24/20 15:17 Dose: 10 mg Documented by: Warfarin Sodium (Coumadin) 10 mg PO ONETIME ONE Stop: 11/25/20 16:01 Last Admin: 11/25/20 15:44 Dose: 10 mg Documented by: - Exam Wound/Incisions: Dressing Dry and Intact, No Drainage, Erythema Improving General: Alert, Oriented, Cooperative, No Acute Distress Extremities: Normal Capillary Refill, Arm Pain (R shoulder ), Limited Range of Motion Skin: Warm, Dry, Intact Neurological: No New Focal Deficit Psy/Mental Status: Alert, Normal Affect, Normal Mood Sepsis Event Note - Evaluation Sepsis Screening Result: No Definite Risk - Focused Exam Vital Signs: Vital Signs Temp Pulse Resp BP Pulse Ox 11/26/20 07:32 97.1 F 66 16 125/80 97 11/26/20 04:00 97.1 F 76 16 122/75 95 11/25/20 23:00 96.4 F L 81 16 129/75 96 - Problem List & Annotations (1) Infection/inflammation due to internal orthopedic device/implant/graft SNOMED Code(s): 22003742, 540341002 Code(s): T84.7XXA - INFECT/INFLM REACT DUE TO OTH INT ORTH PROSTH DEV/GRFT, INIT Status: Acute Current Visit: Yes Qualifiers: Encounter type: initial encounter Qualified Code(s): T84.7XXA - Infection and inflammatory reaction due to other internal orthopedic prosthetic devices, implants and grafts, initial encounter - Problem List Review Problem List Initiated/Reviewed/Updated: Yes - My Orders Last 24 Hours: Active Orders 24 hr Category Date Time Status Consult to Physical Therapy [PT Evaluation and Cons 11/26/20 08:57 Ordered Treatment] [CONS] Routine CREATININE, 24-HOUR URINE Routine Lab 11/27/20 09:30 Ordered INR,PT,PROTHROMBIN TIME [COAG] Routine Lab 11/27/20 05:00 Ordered VANCOMYCIN TROUGH [CHEM] Timed Lab 11/27/20 09:30 Ordered Warfarin [Coumadin] Med 11/26/20 16:00 Once 10 mg PO ONETIME ONE Medication Orders Acetaminophen (Tylenol) 650 mg PO Q6H PRN PRN Reason: Fever Greater Than 101 Alprazolam (Xanax) 0.25 mg PO TID [facility] Admin: 11/25/20 21:22 Dose: 0.25 mg Documented by: Admin: 11/25/20 14:15 Dose: 0.25 mg Documented by: Admin: 11/25/20 09:34 Dose: 0.25 mg Documented by: NICHELLE Cosigned by: TIMUR Admin: 11/24/20 21:55 Dose: 0.25 mg Documented by: Admin: 11/24/20 14:03 Dose: 0.25 mg Documented by: Admin: 11/24/20 09:47 Dose: 0.25 mg Documented by: Admin: 11/23/20 21:37 Dose: 0.25 mg Documented by: Admin: 11/23/20 15:32 Dose: 0.25 mg Documented by: Admin: 11/23/20 08:12 Dose: 0.25 mg Documented by: Admin: 11/22/20 20:37 Dose: 0.25 mg Documented by: Admin: 11/22/20 13:12 Dose: 0.25 mg Documented by: Admin: 11/22/20 08:45 Dose: 0.25 mg Documented by: Admin: 11/21/20 20:28 Dose: 0.25 mg Documented by: ESTEPHANIA Aspirin (Aspirin) 81 mg PO DAILY [facility] Last Admin: 11/25/20 09:24 Dose: 81 mg Documented by: NICHELLE Cosigned by: TIMUR Admin: 11/24/20 09:40 Dose: 81 mg Documented by: Admin: 11/23/20 08:07 Dose: 81 mg Documented by: Admin: 11/22/20 08:37 Dose: 81 mg Documented by: HERMINIO Azathioprine (Imuran) 250 mg PO DAILY [facility] Last Admin: 11/25/20 09:27 Dose: 250 mg Documented by: NICHELLE Cosigned by: TIMUR Admin: 11/24/20 09:41 Dose: 250 mg Documented by: Admin: 11/23/20 08:08 Dose: 250 mg Documented by: Admin: 11/22/20 08:38 Dose: 250 mg Documented by: HERMINIO Bandage/Support Products ( Nasal [employer] Mill Manager) 1 applic NASBOTH BID [facility] Stop: 11/28/20 21:01 Last Admin: 11/25/20 21:22 Dose: 1 applic Documented by: Admin: 11/25/20 09:22 Dose: 1 applic Documented by: NICHELLE Cosigned by: TIMUR Admin: 11/24/20 21:54 Dose: 1 applic Documented by: Admin: 11/24/20 09:40 Dose: 1 swab Documented by: Admin: 11/23/20 21:36 Dose: 1 swab Documented by: Admin: 11/23/20 08:06 Dose: 1 swab Documented by: Admin: 11/22/20 20:34 Dose: 1 swab Documented by: Admin: 11/22/20 09:02 Dose: 1 swab Documented by: Admin: 11/21/20 20:28 Dose: Not Given Documented by: ESTEPHANIA Fluticasone Propionate (Flonase) 0 gm MARTELL DAILY [facility] Last Admin: 11/25/20 09:22 Dose: 1 spray Documented by: NICHELLE Cosigned by: TIMUR Admin: 11/24/20 09:40 Dose: 1 spray Documented by: Admin: 11/23/20 08:07 Dose: 1 spray Documented by: Admin: 11/22/20 08:37 Dose: 1 spray Documented by: HERMINIO Heparin Sodium (Porcine) (Heparin Lock Flush 100 Units/Ml) 500 units FLUSH ASDIRECTED PRN PRN Reason: Other Last Admin: 11/24/20 00:22 Dose: 100 units Documented by: LOUIE Vancomycin HCl 1.75 gm/ Sodium (Chloride) 250 mls @ 125 mls/hr IV Q12H [facility] Last Admin: 11/25/20 21:25 Dose: 125 mls/hr Documented by: Admin: 11/25/20 09:45 Dose: 125 mls/hr Documented by: Admin: 11/24/20 21:45 Dose: 125 mls/hr Documented by: Admin: 11/24/20 09:47 Dose: 125 mls/hr Documented by: Admin: 11/23/20 21:37 Dose: 125 mls/hr Documented by: LOUIE Loratadine (Claritin) 10 mg PO DAILY [facility] Last Admin: 11/25/20 09:25 Dose: 10 mg Documented by: NICHELLE Cosigned by: TIMUR Admin: 11/24/20 09:40 Dose: 10 mg Documented by: Admin: 11/23/20 08:07 Dose: 10 mg Documented by: Admin: 11/22/20 08:37 Dose: 10 mg Documented by: HERMINIO Morphine Sulfate (Morphine) 2 mg IVPUSH Q2H PRN PRN Reason: Breakthrough Pain Nicotine (Habitrol) 21 mg TOP DAILY [facility] Last Admin: 11/25/20 09:25 Dose: 21 mg Documented by: NICHELLE Cosigned by: TIMUR Admin: 11/24/20 09:40 Dose: 21 mg Documented by: Admin: 11/23/20 08:08 Dose: 21 mg Documented by: Admin: 11/22/20 08:37 Dose: 21 mg Documented by: HERMINIO Oxycodone/Acetaminophen (Percocet 325-5 Mg) 0 tab PO Q4H PRN PRN Reason: Pain (moderate 4-6) Last Admin: 11/26/20 00:37 Dose: 1 tab Documented by: Admin: 11/25/20 12:44 Dose: 1 tab Documented by: Admin: 11/25/20 07:49 Dose: 1 tab Documented by: NICHELLE Cosigned by: EDGAR Admin: 11/24/20 21:56 Dose: 1 tab Documented by: Admin: 11/24/20 15:17 Dose: 1 tab Documented by: Admin: 11/24/20 09:46 Dose: 1 tab Documented by: Admin: 11/24/20 02:57 Dose: 1 tab Documented by: Admin: 11/23/20 21:36 Dose: 1 tab Documented by: Admin: 11/23/20 16:00 Dose: 1 tab Documented by: Admin: 11/23/20 11:02 Dose: 1 tab Documented by: Admin: 11/22/20 14:54 Dose: 1 tab Documented by: Admin: 11/22/20 10:22 Dose: 1 tab Documented by: Admin: 11/22/20 03:27 Dose: 1 tab Documented by: Admin: 11/21/20 19:23 Dose: 1 tab Documented by: NICOLE Pantoprazole Sodium (Protonix) 40 mg PO ACBREAKFAST [facility] Last Admin: 11/26/20 07:47 Dose: 40 mg Documented by: NICHELLE Cosigned by: EDGAR Admin: 11/25/20 07:38 Dose: 40 mg Documented by: Admin: 11/24/20 09:40 Dose: 40 mg Documented by: Admin: 11/23/20 08:08 Dose: 40 mg Documented by: Admin: 11/22/20 08:37 Dose: 40 mg Documented by: HERMINIO Paroxetine HCl (Paxil) 40 mg PO DAILY [facility] Last Admin: 11/25/20 09:26 Dose: 40 mg Documented by: NICHELLE Cosigned by: TIMUR Admin: 11/24/20 09:40 Dose: 40 mg Documented by: Admin: 11/23/20 08:07 Dose: 40 mg Documented by: Admin: 11/22/20 08:38 Dose: 40 mg Documented by: HERMINIO Simvastatin (Zocor) 20 mg PO BEDTIME [facility] Last Admin: 11/25/20 21:22 Dose: 20 mg Documented by: Admin: 11/24/20 21:55 Dose: 20 mg Documented by: Admin: 11/23/20 21:37 Dose: 20 mg Documented by: Admin: 11/22/20 20:35 Dose: 20 mg Documented by: Admin: 11/21/20 20:28 Dose: 20 mg Documented by: ESTEPHANIA Warfarin Sodium (Coumadin) 10 mg PO ONETIME ONE Stop: 11/26/20 16:01 - Assessment Assessment (Free Text/Narrative):: Patient is a pleasant 55 y/o male, s/p R shoulder I&D, POD#5. Tolerated surgery well and has been doing well post-operatively. Patient remains hemodynamically stable. No fevers, chills, nor fatigue. Stated shoulder pain was a 1/10 this morning. Does endorse shoulder, elbow and wrist stiffness. Has been compliant with R shoulder sling. Denied numbness or tingling to R UE. Has been tolerating regular diet well with no nausea/emesis. No other concerns expressed by patient. Awaiting culture sensitivities and any further growth. Remains on Vancomycin at this time. PICC line placed on POD#2. Resumed Coumadin therapy POD#2 after PICC placement. Dressing change performed on POD#2, 3, and 5. JOSE Drain pulled on POD#3. Exam: R shoulder incision with surrounding erythema improving. Mild ecchymosis around incision. Mild warmth to touch. No active drainage. Modest, non-pitting edema of R UE when compared to L UE. R elbow and wrist demonstrate good strength and ROM. Plan: * Awaiting culture sensitivities and any further growth; lab is aware to hold cultures for an additional week (through 11/30/20). Will remain on Vancomycin until sensitivities return. Pharmacist monitoring trough levels and making appropriate adjustments. Started 24 hour urine collection yesterday afternoon; patient had an uncollected void overnight, so 24 hour collection re-started this morning. * Dressing change was performed by orthopedic provider this morning. * Physical therapy consult placed to encourage patient with ROM to R elbow and wrist. Limiting shoulder ROM. * Will receive 10 mg PO Coumadin this afternoon, PT/INR check ordered for tomorrow morning. * Anticipate discharge to [facility] Saturday; sister and mom made aware of this plan. Sister will collect patient's possessions from [facility] and bring them to hospital on Saturday evening.
[2020-11-26] MEDS: ALPRAZolam 0.25 MG Tab PO SCH ×3 (09:18→21:35)
[2020-11-26] MEDS ORDERED: Warfarin 5 MG Tab PO ONE (16:00)
[2020-11-26] MEDS: Simvastatin 20 MG Tab PO SCH (21:35)
[2020-11-27] MEDS: Pantoprazole 40 MG Tab.CR PO SCH (08:14)
[2020-11-27] MEDS: ALPRAZolam 0.25 MG Tab PO SCH ×3 (10:06→20:26)
[2020-11-27] MEDS: PARoxetine 20 MG Tab PO SCH (10:07)
[2020-11-27] MEDS: Aspirin 81 MG Tab.Chew PO SCH (10:07)
[2020-11-27] MEDS: Fluticasone Propionate Nasal Spray 16 GM Bottle NAS SCH (10:07)
[2020-11-27] MEDS: Nozin Nasal Sanitizer NASBOTH SCH ×2 (10:08→20:24)
[2020-11-27] MEDS: Nicotine 21 MG/24 Hr Patch TOP SCH (10:12)
--- NOTE | 2020-11-27 10:34 | PCM.SURGPN ---
- General Info Date of Service: 11/27/20 Date of Surgery/Procedure: 11/21/20 POD#: 6 Post-Op Diagnosis: periprosthetic R shoulder infection Functional Status: Reports: Pain Controlled, Tolerating Diet, Ambulating, Urinating - Review of Systems General: Reports: No Symptoms HEENT: Reports: No Symptoms Pulmonary: Reports: No Symptoms Cardiovascular: Reports: No Symptoms Gastrointestinal: Reports: No Symptoms Genitourinary: Reports: No Symptoms Musculoskeletal: Reports: Shoulder Pain (right ) Skin: Reports: Other (erythema around incision, improving ) Neurological: Reports: No Symptoms (cognitive impairment per patients baseline ) Psychiatric: Reports: No Symptoms - Patient Data Vitals - Most Recent: Last Vital Signs Temp 96.7 F L 11/27/20 08:00 Pulse 73 11/27/20 08:00 Resp 12 11/27/20 08:00 BP 115/68 11/27/20 08:00 Pulse Ox 95 11/27/20 08:00 Weight - Most Recent: 320 lb I&O - Last 24 Hours: Intake & Output 11/26/20 11/27/20 11/27/20 22:59 06:59 14:59 Intake Total 2300 Balance 2300 Lab Results Last 24 Hrs: Laboratory Results - last 24 hr 11/27/20 11/27/20 Range/Units 09:31 09:31 PT 13.4 H (9.5-12.0) sec INR 1.23 H (0.80-1.20) Creatinine 1.1 (0.8-1.3) mg/dL Est Cr Clr Drug Dosing 92.06 mL/min Estimated GFR (MDRD) > 60 (>60) Vancomycin Trough 19.1 (10.0-20.0) ug/mL Zac Results Last 24 Hrs: Microbiology 11/21/20 17:55 Gram Stain - Final Shoulder, Right Wound Culture - Final Staphylococcus Lugdunensis Anaerobic Culture - Final NO GROWTH AFTER 3 DAYS 11/21/20 17:52 Gram Stain - Final Shoulder, Right Wound Culture - Final Staphylococcus Lugdunensis Anaerobic Culture - Final NO GROWTH AFTER 3 DAYS Med Orders - Current: Current Medications Acetaminophen (Tylenol) 650 mg PO Q6H PRN PRN Reason: Fever Greater Than 101 Alprazolam (Xanax) 0.25 mg PO TID [facility] Last Admin: 11/27/20 10:06 Dose: 0.25 mg Documented by: Aspirin (Aspirin) 81 mg PO DAILY [facility] Last Admin: 11/27/20 10:07 Dose: 81 mg Documented by: Azathioprine (Imuran) 250 mg PO DAILY [facility] Last Admin: 11/27/20 10:07 Dose: 250 mg Documented by: Bandage/Support Products ( Nasal Press Leader) 1 applic NASBOTH BID [facility] Stop: 11/28/20 21:01 Last Admin: 11/27/20 10:08 Dose: 1 applic Documented by: Fluticasone Propionate (Flonase) 0 gm MARTELL DAILY [facility] Last Admin: 11/27/20 10:07 Dose: 1 spray Documented by: Heparin Sodium (Porcine) (Heparin Lock Flush 100 Units/Ml) 500 units FLUSH ASDIRECTED PRN PRN Reason: Other Last Admin: 11/24/20 00:22 Dose: 100 units Documented by: Vancomycin HCl 1.75 gm/ Sodium (Chloride) 250 mls @ 125 mls/hr IV Q12H [facility] Last Admin: 11/26/20 21:35 Dose: 125 mls/hr Documented by: Loratadine (Claritin) 10 mg PO DAILY [facility] Last Admin: 11/26/20 09:13 Dose: 10 mg Documented by: Morphine Sulfate (Morphine) 2 mg IVPUSH Q2H PRN PRN Reason: Breakthrough Pain Nicotine (Habitrol) 21 mg TOP DAILY [facility] Last Admin: 11/27/20 10:12 Dose: 21 mg Documented by: Oxycodone/Acetaminophen (Percocet 325-5 Mg) 0 tab PO Q4H PRN PRN Reason: Pain (moderate 4-6) Last Admin: 11/26/20 21:45 Dose: 1 tab Documented by: Pantoprazole Sodium (Protonix) 40 mg PO ACBREAKFAST [facility] Last Admin: 11/27/20 08:14 Dose: 40 mg Documented by: Paroxetine HCl (Paxil) 40 mg PO DAILY [facility] Last Admin: 11/27/20 10:07 Dose: 40 mg Documented by: Simvastatin (Zocor) 20 mg PO BEDTIME [facility] Last Admin: 11/26/20 21:35 Dose: 20 mg Documented by: Discontinued Medications Bupivacaine HCl (Marcaine 0.5%) Confirm Administered Dose 50 ml .ROUTE .STK-MED ONE Stop: 11/21/20 17:08 Last Admin: 11/21/20 18:05 Dose: 50 ml Documented by: Sodium Chloride (Normal Saline) 1,000 mls @ 100 mls/hr IV ASDIRECTED [facility] Last Admin: 11/22/20 10:20 Dose: 100 mls/hr Documented by: Phytonadione 10 mg/ Sodium (Chloride) 51 mls @ 100 mls/hr IV NOW ONE Stop: 11/21/20 13:15 Last Admin: 11/21/20 13:26 Dose: 100 mls/hr Documented by: Vancomycin HCl 1 gm/ Sodium (Chloride) 250 mls @ 150 mls/hr IV ONETIME ONE Stop: 11/21/20 18:39 Last Admin: 11/21/20 17:30 Dose: 150 mls/hr Documented by: Vancomycin HCl 1 gm/ Sodium (Chloride) 250 mls @ 150 mls/hr IV Q12H [facility] Last Admin: 11/22/20 04:59 Dose: Not Given Documented by: Vancomycin HCl 2 gm/ Sodium (Chloride) 500 mls @ 250 mls/hr IV Q12H [facility] Last Admin: 11/23/20 05:17 Dose: 250 mls/hr Documented by: Vancomycin HCl (Vancomycin) Confirm Administered Dose 2 gm .ROUTE .STK-MED ONE Stop: 11/22/20 05:04 Last Admin: 11/22/20 05:59 Dose: Not Given Documented by: Warfarin Sodium (Coumadin) 10 mg PO ONETIME ONE Stop: 11/23/20 17:01 Last Admin: 11/23/20 18:00 Dose: 10 mg Documented by: Warfarin Sodium (Coumadin) 10 mg PO ONETIME ONE Stop: 11/24/20 16:01 Last Admin: 11/24/20 15:17 Dose: 10 mg Documented by: Warfarin Sodium (Coumadin) 10 mg PO ONETIME ONE Stop: 11/25/20 16:01 Last Admin: 11/25/20 15:44 Dose: 10 mg Documented by: Warfarin Sodium (Coumadin) 10 mg PO ONETIME ONE Stop: 11/26/20 16:01 Last Admin: 11/26/20 15:09 Dose: 10 mg Documented by: - Exam Wound/Incisions: Dressing Dry and Intact, No Drainage General: Alert, Oriented, Cooperative, No Acute Distress Extremities: Joint Swelling (R UE ), Arm Pain (R shoulder ) Skin: Dry, Intact Neurological: No New Focal Deficit Psy/Mental Status: Alert, Normal Affect, Normal Mood Sepsis Event Note - Evaluation Sepsis Screening Result: No Definite Risk - Focused Exam Vital Signs: Vital Signs Temp Temp Pulse Resp BP Pulse Ox 11/27/20 08:00 96.7 F L 73 12 115/68 95 11/27/20 04:00 96.6 F L 77 16 128/78 96 11/26/20 22:43 96.7 F L 92 18 112/69 96 - Problem List & Annotations (1) Infection/inflammation due to internal orthopedic device/implant/graft SNOMED Code(s): 59866517, 197245046 Code(s): T84.7XXA - INFECT/INFLM REACT DUE TO OTH INT ORTH PROSTH DEV/GRFT, INIT Status: Acute Current Visit: Yes Qualifiers: Encounter type: initial encounter Qualified Code(s): T84.7XXA - Infection and inflammatory reaction due to other internal orthopedic prosthetic devices, implants and grafts, initial encounter - Problem List Review Problem List Initiated/Reviewed/Updated: Yes - My Orders Last 24 Hours: Medication Orders Acetaminophen (Tylenol) 650 mg PO Q6H PRN PRN Reason: Fever Greater Than 101 Alprazolam (Xanax) 0.25 mg PO TID [facility] Last Admin: 11/27/20 10:06 Dose: 0.25 mg Documented by: Admin: 11/26/20 21:35 Dose: 0.25 mg Documented by: Admin: 11/26/20 14:29 Dose: 0.25 mg Documented by: Admin: 11/26/20 09:18 Dose: 0.25 mg Documented by: NICHELLE Cosigned by: AVEL Admin: 11/25/20 21:22 Dose: 0.25 mg Documented by: Admin: 11/25/20 14:15 Dose: 0.25 mg Documented by: Admin: 11/25/20 09:34 Dose: 0.25 mg Documented by: NICHELLE Cosigned by: TIMUR Admin: 11/24/20 21:55 Dose: 0.25 mg Documented by: Admin: 11/24/20 14:03 Dose: 0.25 mg Documented by: Admin: 11/24/20 09:47 Dose: 0.25 mg Documented by: Admin: 11/23/20 21:37 Dose: 0.25 mg Documented by: Admin: 11/23/20 15:32 Dose: 0.25 mg Documented by: Admin: 11/23/20 08:12 Dose: 0.25 mg Documented by: Admin: 11/22/20 20:37 Dose: 0.25 mg Documented by: Admin: 11/22/20 13:12 Dose: 0.25 mg Documented by: Admin: 11/22/20 08:45 Dose: 0.25 mg Documented by: Admin: 11/21/20 20:28 Dose: 0.25 mg Documented by: ESTEPHANIA Aspirin (Aspirin) 81 mg PO DAILY [facility] Last Admin: 11/27/20 10:07 Dose: 81 mg Documented by: Admin: 11/26/20 09:12 Dose: 81 mg Documented by: NICHELLE Cosigned by: AVEL Admin: 11/25/20 09:24 Dose: 81 mg Documented by: NICHELLE Cosigned by: TIMUR Admin: 11/24/20 09:40 Dose: 81 mg Documented by: Admin: 11/23/20 08:07 Dose: 81 mg Documented by: Admin: 11/22/20 08:37 Dose: 81 mg Documented by: HERMINIO Azathioprine (Imuran) 250 mg PO DAILY [facility] Last Admin: 11/27/20 10:07 Dose: 250 mg Documented by: Admin: 11/26/20 09:13 Dose: 250 mg Documented by: NICHELLE Cosigned by: AVEL Admin: 11/25/20 09:27 Dose: 250 mg Documented by: NICHELLE Cosigned by: TIMUR Admin: 11/24/20 09:41 Dose: 250 mg Documented by: Admin: 11/23/20 08:08 Dose: 250 mg Documented by: Admin: 11/22/20 08:38 Dose: 250 mg Documented by: HERMINIO Bandage/Support Products ( Nasal Press Leader) 1 applic NASBOTH BID [facility] Stop: 11/28/20 21:01 Last Admin: 11/27/20 10:08 Dose: 1 applic Documented by: Admin: 11/26/20 21:34 Dose: 1 applic Documented by: Admin: 11/26/20 09:11 Dose: 1 applic Documented by: NICHELLE Cosigned by: AVEL Admin: 11/25/20 21:22 Dose: 1 applic Documented by: Admin: 11/25/20 09:22 Dose: 1 applic Documented by: NICHELLE Cosigned by: TIMUR Admin: 11/24/20 21:54 Dose: 1 applic Documented by: Admin: 11/24/20 09:40 Dose: 1 swab Documented by: Admin: 11/23/20 21:36 Dose: 1 swab Documented by: Admin: 11/23/20 08:06 Dose: 1 swab Documented by: Admin: 11/22/20 20:34 Dose: 1 swab Documented by: Admin: 11/22/20 09:02 Dose: 1 swab Documented by: Admin: 11/21/20 20:28 Dose: Not Given Documented by: ESTEPHANIA Fluticasone Propionate (Flonase) 0 gm MARTELL DAILY [facility] Last Admin: 11/27/20 10:07 Dose: 1 spray Documented by: Admin: 11/26/20 09:12 Dose: 1 spray Documented by: NICHELLE Cosigned by: AVEL Admin: 11/25/20 09:22 Dose: 1 spray Documented by: NICHELLE Cosigned by: TIMUR Admin: 11/24/20 09:40 Dose: 1 spray Documented by: Admin: 11/23/20 08:07 Dose: 1 spray Documented by: Admin: 11/22/20 08:37 Dose: 1 spray Documented by: HERMINIO Heparin Sodium (Porcine) (Heparin Lock Flush 100 Units/Ml) 500 units FLUSH ASDIRECTED PRN PRN Reason: Other Last Admin: 11/24/20 00:22 Dose: 100 units Documented by: LOUIE Vancomycin HCl 1.75 gm/ Sodium (Chloride) 250 mls @ 125 mls/hr IV Q12H [facility] Last Admin: 11/26/20 21:35 Dose: 125 mls/hr Documented by: Admin: 11/26/20 10:45 Dose: 125 mls/hr Documented by: Admin: 11/25/20 21:25 Dose: 125 mls/hr Documented by: Admin: 11/25/20 09:45 Dose: 125 mls/hr Documented by: Admin: 11/24/20 21:45 Dose: 125 mls/hr Documented by: Admin: 11/24/20 09:47 Dose: 125 mls/hr Documented by: Admin: 11/23/20 21:37 Dose: 125 mls/hr Documented by: LOUIE Loratadine (Claritin) 10 mg PO DAILY [facility] Last Admin: 11/26/20 09:13 Dose: 10 mg Documented by: NICHELLE Cosigned by: AVEL Admin: 11/25/20 09:25 Dose: 10 mg Documented by: NICHELLE Cosigned by: TIMUR Admin: 11/24/20 09:40 Dose: 10 mg Documented by: Admin: 11/23/20 08:07 Dose: 10 mg Documented by: Admin: 11/22/20 08:37 Dose: 10 mg Documented by: HERMINIO Morphine Sulfate (Morphine) 2 mg IVPUSH Q2H PRN PRN Reason: Breakthrough Pain Nicotine (Habitrol) 21 mg TOP DAILY [facility] Last Admin: 11/27/20 10:12 Dose: 21 mg Documented by: Admin: 11/26/20 09:14 Dose: 21 mg Documented by: NICHELLE Cosigned by: AVEL Admin: 11/25/20 09:25 Dose: 21 mg Documented by: NICHELLE Cosigned by: TIMUR Admin: 11/24/20 09:40 Dose: 21 mg Documented by: Admin: 11/23/20 08:08 Dose: 21 mg Documented by: Admin: 11/22/20 08:37 Dose: 21 mg Documented by: HERMINIO Oxycodone/Acetaminophen (Percocet 325-5 Mg) 0 tab PO Q4H PRN PRN Reason: Pain (moderate 4-6) Last Admin: 11/26/20 21:45 Dose: 1 tab Documented by: Admin: 11/26/20 15:09 Dose: 1 tab Documented by: Admin: 11/26/20 00:37 Dose: 1 tab Documented by: Admin: 11/25/20 12:44 Dose: 1 tab Documented by: Admin: 11/25/20 07:49 Dose: 1 tab Documented by: NICHELLE Cosigned by: EDGAR Admin: 11/24/20 21:56 Dose: 1 tab Documented by: Admin: 11/24/20 15:17 Dose: 1 tab Documented by: Admin: 11/24/20 09:46 Dose: 1 tab Documented by: Admin: 11/24/20 02:57 Dose: 1 tab Documented by: Admin: 11/23/20 21:36 Dose: 1 tab Documented by: Admin: 11/23/20 16:00 Dose: 1 tab Documented by: Admin: 11/23/20 11:02 Dose: 1 tab Documented by: Admin: 11/22/20 14:54 Dose: 1 tab Documented by: Admin: 11/22/20 10:22 Dose: 1 tab Documented by: Admin: 11/22/20 03:27 Dose: 1 tab Documented by: Admin: 11/21/20 19:23 Dose: 1 tab Documented by: NICOLE Pantoprazole Sodium (Protonix) 40 mg PO ACBREAKFAST [facility] Admin: 11/27/20 08:14 Dose: 40 mg Documented by: NICHELLE Cosigned by: EDGAR Admin: 11/26/20 07:47 Dose: 40 mg Documented by: NICHELLE Cosigned by: EDGAR Admin: 11/25/20 07:38 Dose: 40 mg Documented by: Admin: 11/24/20 09:40 Dose: 40 mg Documented by: Admin: 11/23/20 08:08 Dose: 40 mg Documented by: Admin: 11/22/20 08:37 Dose: 40 mg Documented by: HERMINIO Paroxetine HCl (Paxil) 40 mg PO DAILY [facility] Admin: 11/27/20 10:07 Dose: 40 mg Documented by: Admin: 11/26/20 09:14 Dose: 40 mg Documented by: NICHELLE Cosigned by: AVEL Admin: 11/25/20 09:26 Dose: 40 mg Documented by: NICEHLLE Cosigned by: TIMUR Admin: 11/24/20 09:40 Dose: 40 mg Documented by: Admin: 11/23/20 08:07 Dose: 40 mg Documented by: Admin: 11/22/20 08:38 Dose: 40 mg Documented by: HERMINIO Simvastatin (Zocor) 20 mg PO BEDTIME [facility] Last Admin: 11/26/20 21:35 Dose: 20 mg Documented by: Admin: 11/25/20 21:22 Dose: 20 mg Documented by: Admin: 11/24/20 21:55 Dose: 20 mg Documented by: Admin: 11/23/20 21:37 Dose: 20 mg Documented by: Admin: 11/22/20 20:35 Dose: 20 mg Documented by: Admin: 11/21/20 20:28 Dose: 20 mg Documented by: ESTEPHANIA - Assessment Assessment (Free Text/Narrative):: Assessment: Patient is a pleasant 55 y/o male, s/p R shoulder I&D, POD#6. Tolerated surgery well and has been doing well post-operatively. Patient remains hemodynamically stable. No fevers, chills, nor fatigue. Stated shoulder pain was a 0/10 this morning. Was fearful to move arm and had stiffness in R UE yesterday; PT consult placed yesterday for ROM to elbow, wrist, and fingers. Patient reports improvement in stiffness this morning. Continue to limit shoulder ROM; has been compliant with sling. Has been tolerating regular diet well with no nausea/emesis. Endorsed some loose stools. Final report on wound culture and sensitivities resulted this morning; positive for Staphylococcus Lugdunensis. PICC line placed on POD#2. Resumed Coumadin therapy POD#2 after PICC placement. Dressing changes performed on POD#2, 3, 5, and 6. JOSE Drain pulled on POD#3. PT/INR lab reviewed this morning. Exam: R shoulder dressing with dried drainage; removed and applied a new dressing to R shoulder, which is dry and intact. Incision healing, surrounding erythema improving. No active drainage. Minimal ecchymosis. Mild warmth to touch. R UE edema improved from yesterday, but still has modest edema of R UE when compared to L UE. Plan: -Wound cultures positive for Staphylococcus Lugdunensis; patient received morning dose of vancomycin. Scheduled 750 mg Levofloxacin IV for this afternoon. Patient to start new antibiotic regimen tomorrow: 750 mg Levofloxacin IV qd and 300 mg Rifampin PO BID. Probiotic added. Vancomycin order discontinued after morning dose. -Patient to receive 10 mg warfarin this afternoon. -Continue R elbow and wrist ROM, limiting R shoulder. -Anticipate discharge Saturday to [facility] at 3:30 PM; was made aware of this plan. will be collecting patients possessions from [facility] and bringing them to hospital this evening.
[2020-11-27] MEDS: Loratadine 10 MG Tab PO SCH (10:48)
[2020-11-27] MEDS ORDERED: Warfarin 5 MG Tab PO ONE (16:00)
[2020-11-27] MEDS ORDERED: Levofloxacin/Dextrose 5%-Water 750 MG in Premix Bag 1 BAG IV SCH (16:00)
[2020-11-27] MEDS: Simvastatin 20 MG Tab PO SCH (20:24)
[2020-11-27] MEDS: Acetaminophen/oxyCODONE 325-5 MG Tab PO PRN (20:24)
[2020-11-28] MEDS: Acetaminophen/oxyCODONE 325-5 MG Tab PO PRN (03:44)
[2020-11-28] MEDS: Pantoprazole 40 MG Tab.CR PO SCH (07:58)
[2020-11-28] MEDS: Rifampin 150 MG Cap PO SCH ×2 (07:59→09:34)
[2020-11-28] MEDS: Fluticasone Propionate Nasal Spray 16 GM Bottle NAS SCH (09:20)
[2020-11-28] MEDS: Loratadine 10 MG Tab PO SCH (09:20)
[2020-11-28] MEDS: Aspirin 81 MG Tab.Chew PO SCH (09:20)
[2020-11-28] MEDS: Nicotine 21 MG/24 Hr Patch TOP SCH (09:23)
[2020-11-28] MEDS: PARoxetine 20 MG Tab PO SCH (09:27)
[2020-11-28] MEDS: Nozin Nasal Sanitizer NASBOTH SCH (09:31)
[2020-11-28] MEDS: ALPRAZolam 0.25 MG Tab PO SCH ×2 (09:33→13:26)
--- NOTE | 2020-11-28 11:38 | PCM.DCSUM1 ---
Discharge Summary - Hospital Course Brief History: Patient underwent R shoulder I&D on 11/21/20 for R shoulder periprosthetic infection following a R shoulder hemiarthroplasty 10/05/20. Diagnosis: Stroke: No Modified [place]amo Scale: No Symptoms at All Modified Aneesh Scale Score: 0 - Discharge Data Discharge Date: 11/28/20 Discharge Disposition: DC/Tfer to SNF 03 Condition: Good - Referral to Home Health Date of Face to Face Encounter: 11/28/20 Primary Care Physician: Justin Grullon MD - Discharge Diagnosis/Problem(s) (1) Infection/inflammation due to internal orthopedic device/implant/graft SNOMED Code(s): 89730462, 707380216 ICD Code: T84.7XXA - INFECT/INFLM REACT DUE TO OTH INT ORTH PROSTH DEV/GRFT, INIT Status: Acute Current Visit: Yes Qualifiers: Encounter type: initial encounter Qualified Code(s): T84.7XXA - Infection and inflammatory reaction due to other internal orthopedic prosthetic devices, implants and grafts, initial encounter - Patient Summary/Data Operative Procedure(s) Performed: R shoulder I&D Consults: Consultations 11/21/20 18:34 Consult to Case Management/Botany Teacher [CONS] Routine Comment: Physician Instructions: Service(s) to be Consulted: Case Management Reason for Consult: Plan for Discharge 11/26/20 08:57 Consult to Physical Therapy [PT Evaluation and Treatment] [CONS] Routine Please Evaluate and Treat. PT Reason for Consult: s/p R shoulder I&D Special Instructions: Please assist with AROM to R elbow, wrist, and fingers. Limiting shoulder ROM: no ER past neutral, no flexion past 90, no abduction past 90. Thank you! This query below is only for informational purposes and is not editable. Admission Diagnosis/Problem: Infection and inflammatory reaction due to internal prosthetic device, implant, and graft Hospital Course: Patient is a pleasant 55 y/o male, s/p R shoulder wound debridement, POD #7. Patient had a R shoulder hemiarthroplasty on 10/05/20. No history of impaired wound healing or skin irritation with this recovery, until noted by nursing at [facility] on Saturday11/18/20. Had a normal WBC but elevated ESR and CRP. Patient was taken for I&D of R shoulder on 11/21/20 after elevated PT/INR was corrected with Vitamin K. Patient tolerated surgery well. Culture were taken intra- operatively, was placed on Vancomycin for broad-spectrum coverage through POD#6. Pharmacist monitored kidney function, vancomycin trough levels, and adjusted vancomycin dosing accordingly throughout hospitalization. On POD#6, final report on wound culture and sensitivities showed Staphylococcus Lugdunensis growth. Based on sensitivities, Levofloxacin and Rifampin were selected for antibiotic coverage. Patient has had minimal pain post-operatively. Remained in R shoulder sling and restricted R shoulder motion. Endorsed stiffness in R UE; participated in physical therapy for ROM to R elbow and wrist. Patient was hemodynamically stable throughout hospitalization. Had no fevers, chills, fatigue. Tolerated regular diet well without any nausea/emesis. A PICC line was placed on POD#2. Patient resumed Coumadin therapy POD#2 after PICC placement. Dressing change performed on POD#2, #3, #5, #6, #7. JOSE Drain was pulled on POD#3. Exam: R shoulder incision healing, surrounding erythema improving. Mild ecchymosis of R shoulder. New R shoulder dressing dry and intact. Demonstrates good ROM of R elbow and R wrist. R UE edema improving. Mild warmth to touch of R shoulder. - Patient Instructions Diet: Usual Diet as Tolerated Activity: No Strenuous Activities Activity, Other: R shoulder to remain in sling; restrict ROM of R shoulder. Driving: Do Not Drive Showering/Bathing: May Shower Wound/Incision Care: Keep Operative Site/Wound Site Clean and Dry, Change Dressing Daily Notify Provider of: Fever, Increased Pain, Swelling and Redness, Drainage Other/Special Instructions: Restrict R shoulder ROM; okay to have AROM and strengthening to R elbow and wrist - Discharge Plan *PRESCRIPTION DRUG MONITORING PROGRAM REVIEWED*: Not Applicable *COPY OF PRESCRIPTION DRUG MONITORING REPORT IN PATIENT SAIRA: Not Applicable Home Medications: Home Meds Aspirin [Ashkan Chewable Aspirin] 81 mg PO DAILY 06/17/13 [History] Multivitamin [Multi-Vitamin Daily] 1 tab PO DAILY 06/17/13 [History] Simvastatin 20 mg PO BEDTIME 06/17/13 [History] azaTHIOprine [Azathioprine] 250 mg PO DAILY 06/17/13 [History] ALPRAZolam [Xanax] 0.25 mg PO TID 07/09/19 [History] Fluticasone Propionate [Flonase] 50 mcg NS DAILY 07/09/19 [History] Loratadine 10 mg PO DAILY 07/09/19 [History] Omeprazole 40 mg PO ACBREAKFAST 07/09/19 [History] PARoxetine [Paxil] 40 mg PO DAILY 07/09/19 [History] Warfarin [Coumadin] 7.5 mg PO .M,W,F,SUN 07/09/19 [History] Acetaminophen [Tylenol] 1 - 2 tab PO Q4HR 09/17/19 [History] oxyCODONE 5 mg PO Q4H PRN #20 tablet 10/07/20 [Rx] Nicotine [Nicotine Patch] 1 patch TOP DAILY 10/20/20 [History] Warfarin [Coumadin] 10 mg PO ASDIRECTED 11/21/20 [History] Oxygen Therapy Mode: Room Air - Discharge Summary/Plan Comment DC Time >30 min.: No Discharge Summary/Plan Comment: -Discharge to [facility] today; order forms completed for skilled nursing -R shoulder sling to remain on to limit shoulder motion. Physical therapy to be completed at [facility] for R elbow and R wrist AROM and strengthening, no therapy for R shoulder at this time. -Follow up with orthopedic clinic in 1 week to monitor R shoulder (apt scheduled for 12/06/20) -Patient to take 10 mg warfarin tonight (11/28/20) and then resume previous anticoagulation schedule -Mom and sister made aware of plan above - General Info Date of Service: 11/28/20 Functional Status: Reports: Pain Controlled, Tolerating Diet, Ambulating, Urinating - Review of Systems General: Reports: No Symptoms HEENT: Reports: No Symptoms Pulmonary: Reports: No Symptoms Cardiovascular: Reports: No Symptoms Gastrointestinal: Reports: No Symptoms Genitourinary: Reports: No Symptoms Musculoskeletal: Reports: Shoulder Pain (right ), Joint Swelling (right UE ) Skin: Reports: Other (erythema around incision, improving ) Neurological: Reports: No Symptoms (cognitive impairment per patients baseline ) Psychiatric: Reports: No Symptoms - Patient Data Vitals - Most Recent: Last Vital Signs Temp 96.8 F L 11/28/20 11:00 Pulse 90 11/28/20 11:00 Resp 18 11/28/20 11:00 BP 121/68 11/28/20 11:00 Pulse Ox 96 11/28/20 11:00 Weight - Most Recent: 320 lb I&O - Last 24 hours: Intake & Output 11/27/20 11/28/20 11/28/20 22:59 06:59 14:59 Intake Total 1480 Balance 1480 JENN Results - Last 24 hrs: Microbiology 11/21/20 17:55 Gram Stain - Final Shoulder, Right Wound Culture - Final Staphylococcus Lugdunensis Anaerobic Culture - Final NO GROWTH AFTER 3 DAYS 11/21/20 17:52 Gram Stain - Final Shoulder, Right Wound Culture - Final Staphylococcus Lugdunensis Anaerobic Culture - Final NO GROWTH AFTER 3 DAYS Med Orders - Current: Current Medications Acetaminophen (Tylenol) 650 mg PO Q6H PRN PRN Reason: Fever Greater Than 101 Alprazolam (Xanax) 0.25 mg PO TID PENDING SALE TO [facility] Last Admin: 11/28/20 09:33 Dose: 0.25 mg Documented by: Aspirin (Aspirin) 81 mg PO DAILY PENDING SALE TO [facility] Last Admin: 11/28/20 09:20 Dose: 81 mg Documented by: Azathioprine (Imuran) 250 mg PO DAILY PENDING SALE TO [facility] Last Admin: 11/28/20 09:26 Dose: 250 mg Documented by: Bandage/Support Products ( Nasal Photo Offset Printer) 1 applic NASBOTH BID PENDING SALE TO [facility] Stop: 11/28/20 21:01 Last Admin: 11/28/20 09:31 Dose: 1 applic Documented by: Fluticasone Propionate (Flonase) 0 gm MARTELL DAILY PENDING SALE TO [facility] Last Admin: 11/28/20 09:20 Dose: 2 spray Documented by: Heparin Sodium (Porcine) (Heparin Lock Flush 100 Units/Ml) 500 units FLUSH ASDIRECTED PRN PRN Reason: Other Last Admin: 11/24/20 00:22 Dose: 100 units Documented by: Levofloxacin/Dextrose 750 mg/ (Premix) 150 mls @ 100 mls/hr IV Q24H PENDING SALE TO [facility] Loratadine (Claritin) 10 mg PO DAILY PENDING SALE TO [facility] Last Admin: 11/28/20 09:20 Dose: 10 mg Documented by: Morphine Sulfate (Morphine) 2 mg IVPUSH Q2H PRN PRN Reason: Breakthrough Pain Nicotine (Habitrol) 21 mg TOP DAILY PENDING SALE TO [facility] Last Admin: 11/28/20 09:23 Dose: 21 mg Documented by: Pantoprazole Sodium (Protonix) 40 mg PO ACBREAKFAST PENDING SALE TO [facility] Last Admin: 11/28/20 07:58 Dose: 40 mg Documented by: Paroxetine HCl (Paxil) 40 mg PO DAILY PENDING SALE TO [facility] Last Admin: 11/28/20 09:27 Dose: 40 mg Documented by: Rifampin (Rifadin) 300 mg PO BID PENDING SALE TO [facility] Last Admin: 11/28/20 09:34 Dose: Not Given Documented by: Simvastatin (Zocor) 20 mg PO BEDTIME PENDING SALE TO [facility] Last Admin: 11/27/20 20:24 Dose: 20 mg Documented by: Warfarin Sodium (Coumadin) 10 mg PO ONETIME ONE Stop: 11/28/20 16:01 Discontinued Medications Bupivacaine HCl (Marcaine 0.5%) Confirm Administered Dose 50 ml .ROUTE .STK-MED ONE Stop: 11/21/20 17:08 Last Admin: 11/21/20 18:05 Dose: 50 ml Documented by: Sodium Chloride (Normal Saline) 1,000 mls @ 100 mls/hr IV ASDIRECTED PENDING SALE TO [facility] Last Admin: 11/22/20 10:20 Dose: 100 mls/hr Documented by: Phytonadione 10 mg/ Sodium (Chloride) 51 mls @ 100 mls/hr IV NOW ONE Stop: 11/21/20 13:15 Last Admin: 11/21/20 13:26 Dose: 100 mls/hr Documented by: Vancomycin HCl 1 gm/ Sodium (Chloride) 250 mls @ 150 mls/hr IV ONETIME ONE Stop: 11/21/20 18:39 Last Admin: 11/21/20 17:30 Dose: 150 mls/hr Documented by: Vancomycin HCl 1 gm/ Sodium (Chloride) 250 mls @ 150 mls/hr IV Q12H PENDING SALE TO [facility] Last Admin: 11/22/20 04:59 Dose: Not Given Documented by: Vancomycin HCl 2 gm/ Sodium (Chloride) 500 mls @ 250 mls/hr IV Q12H PENDING SALE TO [facility] Last Admin: 11/23/20 05:17 Dose: 250 mls/hr Documented by: Vancomycin HCl 1.75 gm/ Sodium (Chloride) 250 mls @ 125 mls/hr IV Q12H PENDING SALE TO [facility] Stop: 11/27/20 14:00 Last Admin: 11/27/20 10:48 Dose: 125 mls/hr Documented by: Levofloxacin/Dextrose 750 mg/ (Premix) 150 mls @ 100 mls/hr IV Q24H PENDING SALE TO [facility] Last Admin: 11/27/20 15:59 Dose: 100 mls/hr Documented by: Oxycodone/Acetaminophen (Percocet 325-5 Mg) 0 tab PO Q4H PRN PRN Reason: Pain (moderate 4-6) Last Admin: 11/28/20 03:44 Dose: 1 tab Documented by: Vancomycin HCl (Vancomycin) Confirm Administered Dose 2 gm .ROUTE .STK-MED ONE Stop: 11/22/20 05:04 Last Admin: 11/22/20 05:59 Dose: Not Given Documented by: Warfarin Sodium (Coumadin) 10 mg PO ONETIME ONE Stop: 11/23/20 17:01 Last Admin: 11/23/20 18:00 Dose: 10 mg Documented by: Warfarin Sodium (Coumadin) 10 mg PO ONETIME ONE Stop: 11/24/20 16:01 Last Admin: 11/24/20 15:17 Dose: 10 mg Documented by: Warfarin Sodium (Coumadin) 10 mg PO ONETIME ONE Stop: 11/25/20 16:01 Last Admin: 11/25/20 15:44 Dose: 10 mg Documented by: Warfarin Sodium (Coumadin) 10 mg PO ONETIME ONE Stop: 11/26/20 16:01 Last Admin: 11/26/20 15:09 Dose: 10 mg Documented by: Warfarin Sodium (Coumadin) 10 mg PO ONETIME ONE Stop: 11/27/20 16:01 Last Admin: 11/27/20 16:00 Dose: 10 mg Documented by: - Exam General: Reports: Alert, Oriented, Cooperative, No Acute Distress Extremities: Joint Swelling (right UE ), Arm Pain (Right ) Skin: Reports: Warm, Dry, Intact Wound/Incisions: Reports: Dressing Dry and Intact, No Drainage, Erythema Improving Neurological: Reports: No New Focal Deficit Psy/Mental Status: Reports: Alert, Normal Affect
[2020-11-28] MEDS ORDERED: Levofloxacin/Dextrose 5%-Water 750 MG in Premix Bag 1 BAG IV SCH (13:00)
[2020-11-28] MEDS ORDERED: Warfarin 5 MG Tab PO ONE (14:00)
[2020-11-28 15:05] VITALS: BP 122/77; PULSE 77
--- NOTE | 2020-12-08 07:43 | OR ---
DATE OF PROCEDURE: 11/21/2020 SURGEON: Wilver Lowery MD PREOPERATIVE DIAGNOSIS: Periprosthetic infection, right shoulder. POSTOPERATIVE DIAGNOSIS: Periprosthetic infection, right shoulder. PROCEDURE: Irrigation and debridement, right shoulder. FINGER GRIP MACHINE OPERATOR: AUGUSTINE Weber. ANESTHESIA: General. INDICATIONS: Yaw is a 55-year-old gentleman who had sustained a comminuted four-part fracture of his right proximal humerus approximately six weeks ago. He was noted to have increasing redness and swelling all around the incision at the end of last week. Examination today reveals evidence of infection. He is therefore brought to the operating room for irrigation and debridement. Risks, benefits, potential complications were discussed with Yaw and his mother. Assistance of physician web assistant was utilized for exposure and retraction. DESCRIPTION OF PROCEDURE: After adequate anesthesia was obtained, the patient was placed in a modified beach-chair position. The right shoulder and arm were prepped and draped in a sterile fashion. An incision was made through the previous incision. The area of erythema and hematoma was present, and it also appeared grossly infected. Cultures were obtained. This initially did not appear to extend directly to the joint. An 18-gauge needle was advanced into the subacromial space and aspirated for similar-appearing hematoma which was somewhat thickened. Further exploration did reveal communication between the anterior wound and the subacromial space. The subscapular tendon and attached lesser tuberosity fragment were adherent to the prosthesis with no evidence of loosening. There did not appear to be a direct communication to the glenohumeral joint. The space was thoroughly irrigated with the pulse lavage. A curette was used to scrape the scar tissue from the hematoma pocket and the subacromial space. It was irrigated once again. This was followed by a dilute Betadine irrigation, and then finished up with a pulse lavage. No other pockets were identified. A drain was placed and brought out through a separate stab incision. The skin was closed with a 3-0 nylon in a [id number] mattress suture to disperse the stress over the area of macerated skin. Sterile dressing was then applied. The patient will be continued on the vancomycin until the Gram stain and culture results are available. Wilver Lowery MD /[id number]
== END 2020-11-28 15:46 | DRG 465 ==
LOC: JP.MS 12:42 → JP.SDS 12:42 → JP.MS 12:44 → JP.SDS 11-22 14:23 → UNDOADMIN 11-22 14:23 → JP.MS 11-23 14:12 → UNDODISIN 11-28 15:46
PROVIDERS: ADMIT Specialist; ATTEND Specialist
PROC: 02HV33Z Insertion of Infusion Device into Superior Vena Cava, Percutaneous Approach (ICD-10-PCS; principal; 2020-11-22)
PROC: 0J9D3ZZ Drainage of Right Upper Arm Subcutaneous Tissue and Fascia, Percutaneous Approach (ICD-10-PCS; 2020-11-22)
PROC: 0JBD0ZZ Excision of Right Upper Arm Subcutaneous Tissue and Fascia, Open Approach (ICD-10-PCS; 2020-11-22)
DX: T84.7XXA Infection and inflammatory reaction due to other internal orthopedic prosthetic devices, implants and grafts, initial encounter (principal); H54.7 Unspecified visual loss; E78.00 Pure hypercholesterolemia, unspecified; I10 Essential (primary) hypertension; F41.9 Anxiety disorder, unspecified; Z20.822 Contact with and (suspected) exposure to COVID-19; F32.9 Major depressive disorder, single episode, unspecified; R62.50 Unspecified lack of expected normal physiological development in childhood; E66.9 Obesity, unspecified; B95.8 Unspecified staphylococcus as the cause of diseases classified elsewhere; Z96.611 Presence of right artificial shoulder joint; Z87.891 Personal history of nicotine dependence; Z79.01 Long term (current) use of anticoagulants; Z79.82 Long term (current) use of aspirin; Z79.899 Other long term (current) drug therapy; Z68.39 Body mass index [BMI] 39.0-39.9, adult
CPT/HCPCS: 36415; 36569; 73020-26-RT; 73020-RT; 80053; 80202; 82565; 85025; 85610; 86140; 87070; 87075; 87077; 87186; 87205; 97110-GP; 97161-GP; A9270-GY; C1751; J1642; J1956; J3370; J3430; J3490; J7030; J7040; J7050; J7500; U0002

== ENCOUNTER 2021-09-21 10:20 | Day surgery (SDC) | payer MEDICARE, MEDICAID ==
[~2021-09-21 10:20] MED LIST changes: -Bupivacaine 0.5% 30 ML SDV ONE
[2021-09-21] MEDS ORDERED: Sodium Chloride 0.9% 1,000 ML IV SCH (11:05)
[2021-09-21 11:24] LABS: CORONAVIRUS COVID-19 NAA NEGATIVE (NEGATIVE)
--- NOTE | 2021-09-21 12:52 | OR ---
DATE OF PROCEDURE: 09/21/2021 SURGEON: Rahul Schwartz MD PROCEDURE: Colonoscopy. FINDINGS: 1. Very mild inflammation in the sigmoid colon and rectum. 2. Polypoid type lesion in rectum. COMPLICATIONS: None. CHANGE DIRECTOR: None. PREOPERATIVE DIAGNOSIS: Crohn's disease. POSTOPERATIVE DIAGNOSIS: Crohn's disease. RISKS: Risks, benefits, alternatives, and limitations including, but not limited to infection, bleeding, perforation, false positives, false negatives were explained to the patient and he wished to proceed. PROCEDURE IN DETAIL: The patient was placed in left lateral decubitus position. Digital rectal exam was performed without abnormality. Scope was introduced and advanced atraumatically to small ileocolic anastomosis. The scope was brought back to the colon. The patient had some mild inflammation that was biopsied using cold biopsy forceps. On retroflexion, the patient has small polypoid like lesion. This was biopsied using cold biopsy forceps. With respect to the inflammation of the colon, this was mild, and due to the patient's history of Crohn's disease, this was subsequently biopsied. The patient tolerated the procedure well. Rahul Schwartz MD /[id number]
[2021-09-21 13:03] VITALS: BP 129/74; PULSE 86
== END 2021-09-21 13:05 | disposition other institution (70) ==
LOC: JP.SDS 10:20
PROVIDERS: ATTEND Surgery
DX: K62.89 Other specified diseases of anus and rectum (principal); K50.90 Crohn's disease, unspecified, without complications; K52.9 Noninfective gastroenteritis and colitis, unspecified; I10 Essential (primary) hypertension; F17.200 Nicotine dependence, unspecified, uncomplicated; K21.9 Gastro-esophageal reflux disease without esophagitis; Z01.812 Encounter for preprocedural laboratory examination; Z98.0 Intestinal bypass and anastomosis status; Z20.822 Contact with and (suspected) exposure to COVID-19
CPT/HCPCS: 0241U; 45380; J2250; J2704; J3010; J7030; 88305

== ENCOUNTER 2023-09-13 10:25 | Day surgery (SDC) | payer MEDICARE, MEDICAID ==
[2023-09-13] MEDS ORDERED: Propofol 200 MG/20 ML SDV ONE (11:06)
[2023-09-13] MEDS ORDERED: Midazolam 1 MG/ML 2 ML SDV ONE (11:07)
[2023-09-13] MEDS ORDERED: fentaNYL 50 MCG/ML SDV ONE (11:07)
[2023-09-13] MEDS ORDERED: Sodium Chloride 0.9% 1,000 ML IV SCH (11:30)
[2023-09-13 13:47] VITALS: BP 122/86; PULSE 89
== END 2023-09-13 13:53 | disposition home or self-care (01) ==
LOC: JP.SDS 10:25
PROVIDERS: ATTEND Surgery
DX: I10 Essential (primary) hypertension (principal); Z88.2 Allergy status to sulfonamides
CPT/HCPCS: 45378; J2250; J2704; J3010; J7030